=== PATIENT | female | born 1940 | race Caucasian/White ===

== ENCOUNTER → 2016-06-29 | Outpatient (CLI) | payer MEDICARE | LOC: LAB.O 13:44 | PROVIDERS: ATTEND Family Medicine | DX: D64.9 Anemia, unspecified (principal); I48.91 Unspecified atrial fibrillation; I73.9 Peripheral vascular disease, unspecified; I25.10 Atherosclerotic heart disease of native coronary artery without angina pectoris; R73.01 Impaired fasting glucose; J44.9 Chronic obstructive pulmonary disease, unspecified; E87.6 Hypokalemia; E78.5 Hyperlipidemia, unspecified; Z79.01 Long term (current) use of anticoagulants ==

== ENCOUNTER 2016-09-03 12:19 | Emergency (ER) | payer MEDICARE ==
[2016-09-03] MEDS ORDERED: PHYTONADIONE INJ 10 MG/ML AMP IM ONE (12:57)
[2016-09-03] MEDS ORDERED: OCTREOTIDE ACETATE 100 MCG/ML VIAL IVPB ONE (12:58)
[2016-09-03] MEDS ORDERED: OCTREOTIDE ACETATE 500 MCG in SODIUM CHLORIDE 0.9% 100ML 100 ML IVPB SCH (13:00)
--- NOTE | 2016-09-03 13:03 | RAD ---
EXAM DESCRIPTION: Chest,1 View CLINICAL HISTORY: AMS COMPARISON: 07 September 2014 TECHNIQUE: AP portable chest FINDINGS: The lungs are clear. There is no infiltrate or effusion. The heart is normal size. IMPRESSION: Normal portable chest Electronically signed by: Catracho Saravia MD 09/03/2016 1:02 PM CDT
[2016-09-03] MEDS ORDERED: SODIUM CHLORIDE 0.9% 100ML 100 ML IVPB ONE (13:04)
[2016-09-03] MEDS ORDERED: OCTREOTIDE ACETATE 100 MCG/ML VIAL ONE (13:04)
[2016-09-03] MEDS ORDERED: MORPHINE SULFATE INJ 10 MG/ML VIAL IV ONE (13:14)
[2016-09-03] MEDS ORDERED: OCTREOTIDE ACETATE 100 MCG/ML VIAL INJ ONE ×2 (13:15→13:55)
--- NOTE | 2016-09-03 13:17 | ED.PDOC ---
History of Present Illness - General Chief Complaint: General Time Seen by Provider: 09/03/16 12:23 Source: patient, family Exam Limitations: no limitations - History of Present Illness Initial Comments: Patient presents with weakness, N/V, and black stools for three days. She was bitten by her dog 4 days ago and went to clinic. Her INR at that time was > 10 so she was told to stop taking her coumadin that she normally takes for atrial fibrillation. Since then, she has had black stools and increasing weakness. She has developed N/V for two days with generalized pain. No previous episodes nor known GI bleeding sites/PUD. No other complaints. Timing/Duration: other - 3-4 days Severity: severe Improving Factors: nothing Worsening Factors: nothing Associated Symptoms: malaise, weakness Allergies/Adverse Reactions: Allergies Benzodiazepines Allergy (Verified 11/11/14 01:01) Erythromycin Allergy (Verified 11/11/14 01:01) Pentazocine [From Talwin Compound] Allergy (Verified 11/11/14 01:01) Rifampin Allergy (Verified 11/11/14 01:01) Home Medications: Ambulatory Orders Atenolol [Tenormin] 25 mg PO BID #0 11/23/12 Citalopram Hydrobromide 20 mg PO DAILY #0 11/23/12 Multiple Minerals W/ Vitamins [Calcium Citrate +] 1 tab PO DAILY #0 11/23/12 Magnesium 400 mg PO DAILY 09/08/14 Omeprazole 20 mg PO ACBK 09/08/14 Potassium Chloride Tab [K-Dur] 20 meq PO BIDFD 09/08/14 Propafenone HCl [Rythmol] 225 mg PO TID 09/08/14 Diphenoxylate/Atropine [Lomotil Tab] 2.5 mg PO Q6-8H PRN #12 tab 10/31/14 Sulfa/Trimeth 800/160 (Ds) Tab [Bactrim DS Tab] 1 ea PO BID #14 tab 11/11/14 Review of Systems - Review of Systems Constitutional: States: see HPI EENTM: States: no symptoms reported Respiratory: States: no symptoms reported Cardiology: States: no symptoms reported Gastrointestinal/Abdominal: States: see HPI Genitourinary: States: no symptoms reported Musculoskeletal: States: no symptoms reported Skin: States: no symptoms reported Neurological: States: no symptoms reported Endocrine: States: no symptoms reported Hematologic/Lymphatic: States: no symptoms reported Past Medical History (General) - Patient Medical History Hx Seizures: No Hx Stroke: No Hx Asthma: No Hx of COPD: Yes Hx Cardiac Disorders: Yes Hx Congestive Heart Failure: No Hx Pacemaker: No Hx Hypertension: No Hx Diabetes: No Hx Gastroesophageal Reflux: Yes Hx Cancer: Yes Hx MRSA: No - Vaccination History Hx Tetanus, Diphtheria Vaccination: Yes Hx Influenza Vaccination: No Hx Pneumococcal Vaccination: No - Social History Hx Tobacco Use: Yes Hx Alcohol Use: Yes Hx Substance Use: No Hx Substance Use Treatment: No Hx Depression: No Hx Physical Abuse: No Hx Emotional Abuse: No Hx Suspected Abuse: No - Female History Patient : No Family Medical History - Family History Father Family History: No Known Living Status: Hx Cardiac Disease: Yes Mother Family History: No Known Living Status: Physical Exam - Physical Exam General Appearance: Alert Ears, Nose, Throat: normal ENT inspection Neck: non-tender, full range of motion, supple Respiratory: lungs clear Cardiovascular/Chest: regular rate, rhythm Peripheral Pulses: radial,right: 1+, radial,left: 1+, dorsalis pedis,right: 1+, dorsalis pedis,left: 1+ Gastrointestinal/Abdominal: normal bowel sounds, non tender, soft Back Exam: no CVA tenderness Extremity: other - Pale nail beds and palmar creases Neurologic: no motor/sensory deficits Skin Exam: pallor Lymphatic: no adenopathy Progress - Progress Progress: 09/03/16 13:18 Hb 5.7 Vitamin K 10 mg IM x one given. Octreotide 50 mcg IV x one then run at 50 mcg/ hour. 2 units of PRBCs typed and crossed. Morphine 4 mg IV x one. First unit of blood started before transfer. 09/03/16 16:03 Patient flown by helicopter to [facility]. Departure - Departure Clinical Impression: Acute gastrointestinal hemorrhage, Anemia, Coagulation disorder Disposition: Transfer to Hospital Condition: Fair Departure Forms: ED Discharge - Pt. Copy, Patient Portal Self Enrollment Diet: other - NPO Home Medications: Ambulatory Orders Atenolol [Tenormin] 25 mg PO BID #0 11/23/12 Citalopram Hydrobromide 20 mg PO DAILY #0 11/23/12 Multiple Minerals W/ Vitamins [Calcium Citrate +] 1 tab PO DAILY #0 11/23/12 Magnesium 400 mg PO DAILY 09/08/14 Omeprazole 20 mg PO ACBK 09/08/14 Potassium Chloride Tab [K-Dur] 20 meq PO BIDFD 09/08/14 Propafenone HCl [Rythmol] 225 mg PO TID 09/08/14 Diphenoxylate/Atropine [Lomotil Tab] 2.5 mg PO Q6-8H PRN #12 tab 10/31/14 Sulfa/Trimeth 800/160 (Ds) Tab [Bactrim DS Tab] 1 ea PO BID #14 tab 11/11/14
[2016-09-03] MEDS ORDERED: SODIUM CHLORIDE 0.9% 10 ML VIAL ONE (13:18)
[2016-09-03] MEDS ORDERED: SODIUM CHLORIDE 0.9% 1000ML 1,000 ML IVS ONE (13:30)
[2016-09-03] MEDS ORDERED: SODIUM CHLORIDE 0.9% 250ML 250 ML ONE (14:17)
[2016-09-03 15:05] VITALS: TEMP 99.3; O2SAT 96
[2016-09-03 19:22] VITALS: BP 118/46
== END 2016-09-03 16:05 | disposition short-term general hospital (02) ==
LOC: ER 12:19
DX: K92.2 Gastrointestinal hemorrhage, unspecified (principal); D64.9 Anemia, unspecified; D68.9 Coagulation defect, unspecified; J44.9 Chronic obstructive pulmonary disease, unspecified; K21.9 Gastro-esophageal reflux disease without esophagitis; Z85.9 Personal history of malignant neoplasm, unspecified; Z88.3 Allergy status to other anti-infective agents; Z88.8 Allergy status to other drugs, medicaments and biological substances; Z79.899 Other long term (current) drug therapy; Z87.891 Personal history of nicotine dependence
CPT/HCPCS: 36415; 71010; 80053; 82550; 82553; 82948; 83690; 83735; 83880; 84100; 84436; 84443; 84484; 85025; 85610; 85730; 86922; 93005; J2270; J2354; J3430; J7030; J7050; P9016

== ENCOUNTER 2016-09-13 18:30 | Inpatient (IN) | payer MEDICARE ==
--- NOTE | 2016-09-13 19:53 | HP ---
HISTORY OF PRESENT ILLNESS: This 75 year-old female is admitted to Swing Bed rehabilitation status being transferred from [facility] after an extended and complicated course of therapy requiring significant intervention. Apparently she became extremely weak and disoriented and pale in coloration at home prior to her coming to the Emergency Room on Tuesday the 03 of September. In our Emergency Room, she was found to be having a significant gastrointestinal bleed, probable upper gastrointestinal in location with black bowel movements and shocky state requiring significant support. She had been vomiting earlier. Her memory of the occurrences of her coming to the Emergency Room and being transferred are very foggy. 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 At [facility], she was treated with gastrointestinal consultation as well as nephrology and hematology. She had an upper endoscopy which showed gastritis and duodenitis but no specific source of bleeding was identified. No colonoscopy was noted. She was treated with proton pump inhibitors and required multiple dosings of red cell infusions as well as fresh frozen plasma as her condition deteriorated after her admission to the hospital. She had been on Coumadin because of chronic atrial fibrillation. This was stopped. She was given some Vitamin K in our Emergency Room before her transfer for higher level of care. Her condition slowly stabilized to the point that she was able to be discharged. She received some rehabilitation with physical therapy in the hospital but was so weak she was unable to fully return to her ability to care for herself, therefore she was transferred to [facility] for Swing Bed rehabilitation for strengthening to achieve her abilities to care for herself before being able to safely return home. On the morning of her discharge, her hemoglobin was up to 10.1 where it had been 8.1 just a day or so earlier. During her hospitalization, she received multiple doses parenterally of iron preparations as well as marrow stimulant medications such as Erythropoietin. She was seen by Dr. Perry, brush trimming machine setter, who assisted with some renal insufficiency issues as well. She is admitted to our hospital for initiation of ongoing therapy, rehabilitation and strengthening. PAST MEDICAL HISTORY: 1. History of atrial fibrillation on Coumadin therapy. 2. Gastroesophageal reflux disease. 3. Hypertension. 4. Chronic obstructive pulmonary disease in a chronic smoker, now stopped for a year. 5. History of cervical cancer. 6. 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 7. Atherosclerosis with claudication type pain. PAST SURGICAL HISTORY: 1. Abdominal hysterectomy. 2. Hernia repair. 3. Appendectomy. 4. Cervical cone biopsy. CURRENT MEDICATIONS: Please refer to list verified by nurses. ALLERGIES: BENZODIAZEPINES, ERYTHROMYCIN, PENTAZOCINE, RIFAMPIN, LIPITOR, CRESTOR AND TALWIN. FAMILY HISTORY: Positive for coronary artery disease, hypertension and cancer. 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 She smoked for many years but now has stopped for the last 15 months. REVIEW OF SYSTEMS: No significant weight change recently. No hearing or vision disturbances. She did have altered level of consciousness at the onset of her significant gastrointestinal bleed. LUNGS: Significant shortness of breath even upon exertion after and during her recovery period. CARDIOVASCULAR : History of atrial fibrillation. ABDOMEN: Nausea and vomiting, and black bowel movements in recent past requiring multiple blood transfusions because of significant upper gastrointestinal hemorrhage. NEUROLOGIC: Generalized weakness and associated shortness of breath limits her ability to function. PHYSICAL EXAMINATION: VITAL SIGNS: Please refer to vitals. GENERAL: The patient is awake, alert and oriented. Coloration is somewhat pale but apparently a lot better than it has been recently. HEENT: Unremarkable. NECK: Supple. No carotid bruits. No lymphadenopathy. CHEST: Lungs have diminished breath sounds with a few rhonchi more on the right than the left with the patient lying at the present time on her left side. CARDIOVASCULAR: Heart tones are slightly irregular. No significant gallops. ABDOMEN: Fairly good and hyperactive bowel tones are present. Tenderness in the epigastrium. No organomegaly evident upon palpation. No rebound tenderness. EXTREMITIES: Fairly well formed with no significant pedal edema, decreased muscle tone present. NEUROLOGIC: Generally weak but no focal neurological deficits noted. The patient is otherwise awake, alert and oriented, and communicative. LABORATORY: Recent hemoglobin of 10.1 is noted. Repeat evaluation in the morning to further delineate a baseline for close followup to continue. ASSESSMENT: 1. Significant acute upper gastrointestinal hemorrhage with melena and significant anemia state requiring multiple units of packed red blood cells as well as fresh frozen plasma. 2. Chronic atrial fibrillation having been on Coumadin with hyper therapeutic INR initially now adjusted down at [facility] with adjustments to continue. 3. Acute renal injury noted showing some improvement. 4. Chronic obstructive pulmonary disease in a chronic smoker now stopped for the last 15 months. 5. History of coronary artery disease. 6. History of atherosclerotic cardiovascular disease with significant claudication having received at least 5 stents in the femoral regions in years past. 7. Acute anemia, probable blood loss with recheck in the morning. 8. History of hypertension. 9. History of gastroesophageal reflux disease with a hiatal hernia. PLAN: Continue supportive care. Physical Therapy to evaluate in the morning and to initiate strengthening and ambulation training until safe to return home. Continue with ProTime and vitals followup. Will continue with some of the home medicines started and will be continued from [facility]. Observe renal function. Continue with bronchodilators and pulmonary hygiene, and close followup suggested. She will require several days in order to get to the point where she will be safe to return home. #[id number] [facility]
[2016-09-13] MEDS ORDERED: MAGNESIUM HYDROXIDE 30 ML UD PO PRN (20:04)
[2016-09-13] MEDS ORDERED: SODIUM PHOS/BIPHOS ENEMA ADULT 133 ML BTTL PR PRN (20:04)
[2016-09-13] MEDS ORDERED: ACETAMINOPHEN 500 MG TAB PO PRN (20:04)
[2016-09-13] MEDS: IPRATROPIUM/ALBUTEROL 3 ML VIAL INH SCH (20:38)
[2016-09-13] MEDS ORDERED: PROPAFENONE HCL 225 MG PO SCH (22:30)
[2016-09-13] MEDS ORDERED: diphenhydrAMINE HCL 25 MG CAP ONE (22:39)
[2016-09-13] MEDS ORDERED: GABAPENTIN 300 MG CAP ONE (22:40)
[2016-09-13] MEDS: diphenhydrAMINE HCL 25 MG CAP PO SCH (22:41)
[2016-09-13] MEDS: GABAPENTIN 300 MG CAP PO SCH (22:41)
[2016-09-13] MEDS: ATENOLOL 25 MG TAB PO SCH (22:42)
[2016-09-14] MEDS: LEVALBUTEROL NEBS 1.25 MG/3 ML VIAL INH PRN ×2 (00:35→18:08)
[2016-09-14] MEDS ORDERED: PANTOPRAZOLE SODIUM TAB 40 MG PO SCH (07:00)
[2016-09-14] MEDS ORDERED: PROPAFENONE 150 MG TAB ONE (07:40)
[2016-09-14] MEDS: IPRATROPIUM/ALBUTEROL 3 ML VIAL INH SCH ×4 (09:05→20:56)
[2016-09-14] MEDS: DOCUSATE SODIUM 100 MG CAP PO SCH (09:30)
[2016-09-14] MEDS: ATENOLOL 25 MG TAB PO SCH ×2 (09:30→20:40)
[2016-09-14] MEDS: PROPAFENONE 150 MG TAB PO SCH ×3 (09:30→20:40)
[2016-09-14] MEDS: CITALOPRAM HBR 20 MG TAB PO SCH (09:30)
[2016-09-14] MEDS: POTASSIUM CHLORIDE 10 MEQ TAB PO SCH ×2 (11:57→17:40)
[2016-09-14] MEDS: WARFARIN SODIUM 3 MG TAB PO SCH (11:58)
--- NOTE | 2016-09-14 13:12 | PN ---
DATE: 09/14/1709 SUBJECTIVE: The patient is ambulating in the room. She is still very weak, but less short of breath. Still coloration is somewhat pale. Appetite is fair. No new onset of GI bleeding evident. OBJECTIVE: VITAL SIGNS: Blood pressure 122/69. Afebrile. Pulse 69. Saturation 96% on nasal cannula. Continue to observe with ambulation studies to check on requirements of oxygen. LUNGS: Diminished breath sounds with a few rhonchi, more on the right base than the left. HEART: Tones are somewhat distant. ABDOMEN: Soft with some mild epigastric tenderness. LABORATORY: White count 7,500, hemoglobin 9 and was 10.1 yesterday. INR on 3 mg of Coumadin daily is 2.37. Of note, she was on 3 mg a day of Coumadin when her bleeding started and she had an INR of greater than 4. Chemistries show potassium seriously low at 2.7. BUN 17, glucose 117, calcium 8.4, albumin 2.9 with protein supplementation initiated via the diet. ASSESSMENT: 1. Significant acute upper gastrointestinal hemorrhage with recent melena and severe anemic state requiring multiple units of packed red blood cells as well as fresh frozen plasma. 2. Chronic atrial fibrillation having been on Coumadin with a hyper- therapeutic INR initially, now adjusted down to therapeutic levels and Coumadin to be continued even though the patient now is in normal sinus rhythm, but has several stents in her femoral arteries and is symptomatic with claudication. 3. Acute renal injury noted, showing some improvement. 4. Chronic obstructive pulmonary disease in a chronic smoker, now stopped for 15 months. 5. History of coronary artery disease. 6. History of atherosclerotic cardiovascular disease with claudication with at least five stents in the femoral regions in recent years. 7. Acute anemia secondary to blood loss with a normocytic/normochromic presentation. 8. History of hypertension. 9. History of gastroesophageal reflux disease with hiatal hernia. 10. Significant hypokalemia requiring supplementation and close followup. PLAN: Condition was discussed with Dr. Acuna, stewardess supervisor at [facility] who saw the patient at [facility] and he feels that even though she has normal sinus rhythm and because of the significant stents she has in both femoral arteries and the fact that she goes in and out of atrial fibrillation that she needs to be continued on the Coumadin therapy. The patient currently has cardiology followup with stewardess supervisor in [facility] and further consultation will be if indicated in the future. The patient is started on KCL p.o. 30 mEq t.i.d. with meals for the next 7 doses and reevaluate the potassium. The patient does not wish to have a potassium rider IV because of her arms and her veins. We will continue to observe the INR closely and must prevent elevation above normal. May eventually require Coumadin 2.5 mg daily instead of 3 mg in an effort to provide protection and yet avoid re-bleeding. Close followup is necessary as she continues with her rehab with physical therapy supervision. #[id number] [facility]
[2016-09-14] MEDS ORDERED: LOPERAMIDE CAP 2 MG CAP ONE (18:17)
[2016-09-14] MEDS ORDERED: DIPHENOXYLATE HCL/ATROPINE 2.5 MG TAB PO PRN (18:20)
[2016-09-14] MEDS: BIFIDOBACTERIUM INFANTIS 4 MG CAP PO SCH ×2 (18:48→20:40)
[2016-09-14] MEDS: HYDROcodone 5MG/APAP 325MG 1 EA TAB PO PRN (20:09)
[2016-09-14] MEDS: ESZOPICLONE 1 MG TAB PO PRN (20:40)
[2016-09-14] MEDS: GABAPENTIN 300 MG CAP PO SCH (20:41)
[2016-09-14] MEDS: diphenhydrAMINE HCL 25 MG CAP PO SCH (20:41)
[2016-09-15] MEDS ORDERED: PANTOPRAZOLE SODIUM TAB 40 MG PO ONE (04:50)
[2016-09-15] MEDS: PANTOPRAZOLE SODIUM TAB 40 MG PO SCH (06:13)
[2016-09-15] MEDS: POTASSIUM CHLORIDE 10 MEQ TAB PO SCH ×3 (07:51→17:16)
[2016-09-15] MEDS: IPRATROPIUM/ALBUTEROL 3 ML VIAL INH SCH ×4 (08:15→19:51)
[2016-09-15] MEDS: ATENOLOL 25 MG TAB PO SCH ×2 (09:22→20:35)
[2016-09-15] MEDS: DOCUSATE SODIUM 100 MG CAP PO SCH (09:22)
[2016-09-15] MEDS: BIFIDOBACTERIUM INFANTIS 4 MG CAP PO SCH ×2 (09:22→20:34)
[2016-09-15] MEDS: PROPAFENONE 150 MG TAB PO SCH ×3 (09:22→20:34)
[2016-09-15] MEDS: CITALOPRAM HBR 20 MG TAB PO SCH (09:22)
[2016-09-15] MEDS: WARFARIN SODIUM 3 MG TAB PO SCH (12:31)
[2016-09-15] MEDS: HYDROcodone 5MG/APAP 325MG 1 EA TAB PO PRN ×2 (13:53→19:23)
[2016-09-15] MEDS: CEFUROXIME AXETIL TAB 250 MG TAB PO SCH ×2 (15:18→20:34)
--- NOTE | 2016-09-15 16:03 | PN ---
DATE: 09/15/16 SUPERVISING PHYSICIAN: Rafy Guajardo M.D. SUBJECTIVE: The patient has just been down to rehab participating in her physical therapy. She is doing well. She said she is still weak but progressing. She has had no further complaints of any notable bleeding, although she has had a few episodes of diarrhea. OBJECTIVE: VITAL SIGNS: Temperature 98.6, pulse 76, blood pressure 139/68, respirations 18, O2 sat showing 91% on room air. I's and O's show a negative balance of 60 with 340 in, 400 out. Weight 66.3 kg. CHEST: Clear to auscultation bilaterally. HEART: Regular rate and rhythm. ABDOMEN: Soft, non- tender. Positive bowel sounds. EXTREMITIES: No clubbing, cyanosis or edema. NEUROLOGIC: She is alert and oriented times three. LABORATORY: Repeat laboratory studies show potassium 3.5 compared to admission of 2.7. Otherwise all other chemistries are within normal limits. H&H today is 9.5 and 29.8 which is improved from admission of 9.8 and 28.0. Differential shows to be within normal limits. Platelet count 323,000. RADIOLOGY: There are no radiographic studies. MICROBIOLOGY: Urine culture was submitted and preliminary shows gram-negative rods. ASSESSMENT: 1. History of significant acute upper gastrointestinal hemorrhage with recent melena and severe anemic state that required multiple units of packed red blood cells as well as some fresh frozen plasma prior to discharge from Acute Care. 2. Chronic atrial fibrillation having been on Coumadin with a hyper- therapeutic INR initially, with therapeutic levels now obtained on admission with the patient being in normal sinus rhythm, but due to several stents in her femoral arteries and is symptomatic with claudication, recommendations to continue with Coumadin. 3. Acute renal injury noted, showing some improvement. 4. Chronic obstructive pulmonary disease in a chronic smoker, now stopped for 15 months. 5. History of coronary artery disease. 6. History of atherosclerotic cardiovascular disease with claudication with at least five stents in the femoral regions in past years. 7. Acute anemia secondary to blood loss with a normocytic/normochromic presentation showing to be stable and improving. 8. History of hypertension. 9. History of gastroesophageal reflux disease with hiatal hernia. 10. Significant hypokalemia on admission with ongoing supplementation showing improvement. PLAN: Will continue to monitor the patient closely as she participates with her physical therapy during Swing Bed admission. Will plan to monitor her INR at least every third day and continue to check H&Hs with lab draws. She did show gram-negative rods on the urine. Will start her on some Ceftin p.o. and await final culture results to target antibiotic therapy accordingly. She remains on potassium chloride for ongoing treatment with 20 mEq b.i.d. having received 30 mEq in the last 24 hours 3 times a day. At this point, she will stay on 3 mg of Coumadin until her next INR draw and should she show continued elevation, will reassess and adjust her daily dosage. She will need close followup until discharge. Until then, will continue to monitor the patient closely. #[id number] [facility] [place]
[2016-09-15] MEDS: diphenhydrAMINE HCL 25 MG CAP PO SCH (20:34)
[2016-09-15] MEDS: GABAPENTIN 300 MG CAP PO SCH (20:34)
[2016-09-15] MEDS: ESZOPICLONE 1 MG TAB PO PRN (20:34)
[2016-09-16] MEDS: PANTOPRAZOLE SODIUM TAB 40 MG PO SCH (06:13)
[2016-09-16] MEDS: POTASSIUM CHLORIDE 10 MEQ TAB PO SCH ×2 (08:09→16:46)
[2016-09-16] MEDS: PROPAFENONE 150 MG TAB PO SCH ×3 (08:54→21:20)
[2016-09-16] MEDS: ATENOLOL 25 MG TAB PO SCH ×2 (08:56→21:20)
[2016-09-16] MEDS: DOCUSATE SODIUM 100 MG CAP PO SCH (08:56)
[2016-09-16] MEDS: CITALOPRAM HBR 20 MG TAB PO SCH (08:56)
[2016-09-16] MEDS: BIFIDOBACTERIUM INFANTIS 4 MG CAP PO SCH ×2 (08:57→21:19)
[2016-09-16] MEDS: IPRATROPIUM/ALBUTEROL 3 ML VIAL INH SCH ×4 (09:04→20:35)
--- NOTE | 2016-09-16 09:17 | PCM.CORE ---
Physician DVT/VTE - Prophylaxis Currently: Patient already on anticoagulation therapy - warfrin - Nurse DVT Assessment & Total Each Risk Factor Represents 3 Points: Age over 75 years DVT Assessment Score: 3 - 5 or more Very High Risk Treatments: Early Ambulation *, Sequential Compression Device Pharmacological: Warfarin daily
[2016-09-16] MEDS: CEPHALEXIN MONOHYDRATE 500 MG CAP PO SCH ×2 (09:53→21:20)
[2016-09-16] MEDS: WARFARIN SODIUM 3 MG TAB PO SCH (12:22)
[2016-09-16] MEDS ORDERED: NITROFURANTOIN MONOHYDRATE MAC 100 MG CAP PO SCH (17:00)
[2016-09-16] MEDS: HYDROcodone 5MG/APAP 325MG 1 EA TAB PO PRN (19:39)
[2016-09-16] MEDS: diphenhydrAMINE HCL 25 MG CAP PO SCH (21:19)
[2016-09-16] MEDS: GABAPENTIN 300 MG CAP PO SCH (21:19)
[2016-09-16] MEDS: ESZOPICLONE 1 MG TAB PO PRN (21:20)
[2016-09-17] MEDS: PANTOPRAZOLE SODIUM TAB 40 MG PO SCH (06:25)
[2016-09-17 06:46] VITALS: BP 150/67; TEMP 96.5
[2016-09-17] MEDS: POTASSIUM CHLORIDE 10 MEQ TAB PO SCH (07:54)
[2016-09-17] MEDS: IPRATROPIUM/ALBUTEROL 3 ML VIAL INH SCH ×3 (08:47→15:51)
[2016-09-17] MEDS: CEPHALEXIN MONOHYDRATE 500 MG CAP PO SCH (08:52)
[2016-09-17] MEDS: CITALOPRAM HBR 20 MG TAB PO SCH (08:52)
[2016-09-17] MEDS: ATENOLOL 25 MG TAB PO SCH (08:52)
[2016-09-17] MEDS: DOCUSATE SODIUM 100 MG CAP PO SCH (08:53)
[2016-09-17] MEDS: BIFIDOBACTERIUM INFANTIS 4 MG CAP PO SCH (08:53)
[2016-09-17] MEDS: PROPAFENONE 150 MG TAB PO SCH ×2 (08:53→15:35)
[2016-09-17] MEDS: WARFARIN SODIUM 3 MG TAB PO SCH (12:56)
[2016-09-17 13:56] VITALS: O2SAT 94
--- NOTE | 2016-09-20 14:30 | DS ---
SUPERVISING PHYSICIAN: Kelli García MD DISCHARGE DIAGNOSIS: 1. History of significant upper gastrointestinal hemorrhage with recent melena and severe anemia state that required multiple units of packed red blood cells as well as fresh frozen plasma prior to discharge from Acute Care. 2. Chronic atrial fibrillation having been on Coumadin with hyper therapeutic INR initially, with therapeutic levels obtained on admission to Swing Bed with the patient being in normal sinus rhythm, but due to her several in the femoral arteries and symptomatic with claudication, recommendation for her to continue her Coumadin per her beach lifeguard. 3. Acute renal injury noted, showing improvement. 4. Chronic obstructive pulmonary disease in a chronic smoker, now stopped for the last 15 months. 5. History of coronary artery disease. 6. History of atherosclerotic cardiovascular disease with claudication with at least five stents in the femoral region in the past years and on chronic Coumadin therapy. 7. Acute anemia, secondary to blood loss with normocytic/normochromic presentation, stable at time of discharge. 8. History of hypertension. 9. History of gastroesophageal reflux disease with a hiatal hernia. 10. Significant hypokalemia on admission with ongoing supplementation, showing improvement. HISTORY OF PRESENT ILLNESS: Ms. Ansari is a 75-year-old, female patient that was admitted to Swing Bed rehabilitation status being transferred from [facility] after an extended and complicated course of therapy requiring significant intervention. Apparently she became extremely weak and disoriented and pale in coloration at home prior to her coming to the Emergency Room on Tuesday the 03 of September. In [facility], she was found to be having a significant gastrointestinal bleed , probable upper gastrointestinal in location with black bowel movements and shocky state requiring significant support. She had been vomiting earlier. Her memory of the occurrences of her coming to the Emergency Room and being transferred were very foggy. 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 At [facility], she was treated with gastrointestinal consultation as well as nephrology and hematology. She had an upper endoscopy which showed gastritis and duodenitis, but no specific source of bleeding was identified. No colonoscopy was noted. She was treated with proton pump inhibitors and required multiple dosings of red cell infusions as well as fresh frozen plasma as her condition deteriorated after her admission to the hospital. She had been on Coumadin because of chronic atrial fibrillation. That was stopped. She was given some Vitamin K in our Emergency Room before her transfer for higher level of care. Her condition slowly stabilized to the point that she was able to be discharged. She received some rehabilitation with physical therapy in the hospital, but was so weak she was unable to fully return to her ability to care for herself, therefore she was transferred to [facility] for Swing Bed rehabilitation for strengthening to achieve her abilities to care for herself before being able to safely return home. On the morning of her discharge, her hemoglobin was up to 10.1 where it had been 8.1 just a day or so earlier. During her hospitalization, she received multiple doses parenterally of iron preparations as well as marrow stimulant medications such as Erythropoietin. She was seen by Dr. Perry, citrus fruit packer, who assisted with some renal insufficiency issues as well. She was admitted to our hospital for initiation of ongoing therapy, rehabilitation and strengthening. LABORATORY: On admission to [facility] bed, initial hemoglobin was 9.0. At time of discharge, it was 10.6 with hematocrit 33.6. White count remained within normal limits and at time of discharge was 6.6, platelet count 363,000. Differential was without a left shift. Coagulation studies showed therapeutic INR of 2.37 initially on admission. This was followed up on 09/16/16 with additional studies showing her INR had elevated somewhat to 2.96. Chemistries showed electrolytes on admission with sodium 143, potassium 2.7, BUN 17, creatinine 1.14. After therapy treatment, discharge on 09/17/16 with potassium having corrected itself to 4.3. BUN 18, creatinine 1.23. Urine on admission showed just a trace of intact blood with large leukocyte esterase. Microscopic showed 3 to 5 WBCs with 1 to 3 RBCs, but rare bacteria. She did have a urine culture completed and did show an Escherichia coli which showed to be severely resistant, but with significant first and third generation cephalosporins as well as meropenem and nitrofurantoin and Bactrim. RADIOLOGY: No radiographic studies while in Swing Bed. HOSPITAL COURSE: Ms. Ansari was admitted to Swing Bed as noted in history of present illness. She did well with physical therapy under the direction of physical therapy department with monitoring her INR and her CBC closely. She showed improvement in her hemoglobin and hematocrit and stabilized as well as she was therapeutic on her INR. She was started on antibiotics while on Swing Bed that included initially Macrobid and then this was transitioned to Ceftin until culture was completed and showed it was resistant to second generation cephalosporins. Given her age and her creatinine function, Macrobid was not started as contraindication and she was started on Keflex through the remainder of her hospitalization. She did well with physical therapy and was felt strong enough to be discharged home to continue with outpatient treatment plan. Ms. Ansari was discharged on 09/17/16 to have close clinical followup with Dr. Diaz and to have continued home health with [facility]. She was to resume her home medications as noted and taken new prescriptions as directed. She was encouraged to drink plenty of fluids to prevent dehydration and return to the hospital should she have any worsening of her condition. At time of discharge, new medications included: 1. Keflex 500 mg q.12h., #20, based on sensitivity report with Escherichia coli showing sensitivity to first generation cephalosporins, but resistant to second general cephalosporins as well as the patient had contraindication for Macrobid. No new medications were added. She was discharged in stable condition. #[id number] [facility]
== END 2016-09-17 16:20 | disposition home health service (06) | DRG 683 ==
LOC: MS 18:30 → UNDOADMIN 18:30 → MS 19:51 → UNDOADMIN 19:51 → UNDODISIN 09-17 16:20
PROVIDERS: ADMIT Emergency Medicine; ATTEND Nurse Practitioner Family
DX: N17.9 Acute kidney failure, unspecified (principal); D62 Acute posthemorrhagic anemia; R53.1 Weakness; I48.2 Chronic atrial fibrillation; E87.6 Hypokalemia; K21.9 Gastro-esophageal reflux disease without esophagitis; I10 Essential (primary) hypertension; J44.9 Chronic obstructive pulmonary disease, unspecified; I70.219 Atherosclerosis of native arteries of extremities with intermittent claudication, unspecified extremity; K44.9 Diaphragmatic hernia without obstruction or gangrene; Z88.8 Allergy status to other drugs, medicaments and biological substances; Z85.41 Personal history of malignant neoplasm of cervix uteri; Z88.1 Allergy status to other antibiotic agents; Z95.820 Peripheral vascular angioplasty status with implants and grafts; Z87.891 Personal history of nicotine dependence; Z79.01 Long term (current) use of anticoagulants; Z79.899 Other long term (current) drug therapy; Z16.19 Resistance to other specified beta lactam antibiotics

== ENCOUNTER 2016-10-02 12:54 | Emergency (ER) | payer MEDICARE ==
[2016-10-02] MEDS ORDERED: MAGNESIUM SULFATE PREMIX 2GM 2 GM in PREMIX BAG 1 BAG IVPB ONE (14:12)
[2016-10-02] MEDS ORDERED: PHYTONADIONE INJ 10 MG/ML AMP IM ONE (14:12)
--- NOTE | 2016-10-02 14:24 | ED.PDOC ---
History of Present Illness - General Chief Complaint: GI Problem Stated Complaint: abdominal bloating, sob, right shoulder pain. Time Seen by Provider: 10/02/16 14:10 Source: patient, RN notes reviewed, Vital Signs reviewed, family - Son Exam Limitations: no limitations - History of Present Illness Initial Comments: Patient is a 75 y/o female with a history of GI bleed last month. She came in with the same symptoms at that time. She has been nauseous, fatigued. She is worried about another GI bleed and her Hb. It was 5.7 last time she was here before she was transferred. She has also had shortness of breath. Timing/Duration: other - She has not felt well seince her hospitalization, however she has been much worse today. Severity: moderate, severe Improving Factors: nothing Worsening Factors: movement Associated Symptoms: cough, nausea/vomiting, shortness of breath, weakness Allergies/Adverse Reactions: Allergies Benzodiazepines Allergy (Verified 10/02/16 13:21) Erythromycin Allergy (Verified 10/02/16 13:21) Pentazocine [From Talwin Compound] Allergy (Verified 10/02/16 13:21) Rifampin Allergy (Verified 10/02/16 13:21) Home Medications: Ambulatory Orders Atenolol [Tenormin] 25 mg PO BID #0 11/23/12 Citalopram Hydrobromide 20 mg PO DAILY #0 11/23/12 Multiple Minerals W/ Vitamins [Calcium Citrate +] 1 tab PO DAILY #0 11/23/12 Magnesium 400 mg PO DAILY 09/08/14 Omeprazole 20 mg PO ACBK 09/08/14 Potassium Chloride Tab [K-Dur] 10 meq PO DAILY 09/08/14 Propafenone HCl [Rythmol] 225 mg PO TID 09/08/14 Diphenoxylate/Atropine [Lomotil Tab] 2.5 mg PO Q6-8H PRN #12 tab 10/31/14 Budesonide Nebs [Pulmicort Respules] 0.25 mg INH BID 09/13/16 Gabapentin 300 mg PO BEDTIME 09/13/16 Pantoprazole Sodium [Protonix] 40 mg PO ACBK 09/13/16 Warfarin Sodium [Coumadin] 3 mg PO DAILY 09/13/16 diphenhydrAMINE HCL [Benadryl] 50 mg PO BEDTIME 09/13/16 Cephalexin Monohydrate [Keflex] 500 mg PO Q12H #20 cap 09/17/16 Review of Systems - Review of Systems Constitutional: States: malaise, weakness EENTM: States: no symptoms reported Respiratory: States: cough, short of breath Cardiology: States: no symptoms reported Gastrointestinal/Abdominal: States: nausea Genitourinary: States: no symptoms reported Musculoskeletal: States: muscle pain Skin: States: no symptoms reported Neurological: States: weakness Endocrine: States: no symptoms reported Hematologic/Lymphatic: States: no symptoms reported All other Systems: Reviewed and Negative Past Medical History (General) - Patient Medical History Hx Seizures: No Hx Stroke: No Hx Asthma: No Hx of COPD: Yes Hx Cardiac Disorders: Yes Hx Congestive Heart Failure: No Hx Pacemaker: No Hx Hypertension: No Hx Diabetes: No Hx Gastroesophageal Reflux: Yes Hx Cancer: Yes Hx MRSA: No Surgical History: Hysterectomy - Vaccination History Hx Tetanus, Diphtheria Vaccination: Yes Hx Influenza Vaccination: No Hx Pneumococcal Vaccination: No - Social History Hx Tobacco Use: No Hx Alcohol Use: Yes Hx Substance Use: No Hx Substance Use Treatment: No Hx Depression: No Hx Physical Abuse: No Hx Emotional Abuse: No Hx Suspected Abuse: No - Activities of Daily Living Hospice Agency (if applicable):: None - Female History Patient is a Female of Child Bearing Age (10 -59 yrs old): No Patient : No Family Medical History - Family History Father Family History: No Known Living Status: Hx Cardiac Disease: Yes Mother Family History: No Known Living Status: Physical Exam - Physical Exam General Appearance: Alert, Comfortable, No apparent distress Ears, Nose, Throat: hearing grossly normal, normal ENT inspection Neck: supple Respiratory: lungs clear, normal breath sounds, no respiratory distress, no accessory muscle use Cardiovascular/Chest: no edema, no murmur, tachycardia, irregularly irregular Gastrointestinal/Abdominal: normal bowel sounds, non tender, soft, no organomegaly Back Exam: normal inspection, no CVA tenderness Extremity: normal range of motion, non-tender, normal inspection, no pedal edema Neurologic: alert, normal mood/affect, oriented x 3 Skin Exam: normal color, warm/dry Progress - Results/Orders Results/Orders: 10/02/16 10/02/16 10/02/16 13:03 13:10 15:00 Temperature 99.8 F H Pulse Rate Pulse Rate [ 106 H pulse ox] Respiratory 20 20 24 Rate Blood Pressure 142/84 [Left Arm] O2 Sat by Pulse 89 L Oximetry 10/02/16 15:12 Temperature Pulse Rate 102 H Pulse Rate [ pulse ox] Respiratory 22 Rate Blood Pressure [Left Arm] O2 Sat by Pulse 93 L Oximetry 10/02/16 13:30 EKG STAT 10/02/16 14:45 Chest,1 View [RAD] Stat 10/02/16 15:48 HYDROcodone 10MG/APAP 325MG [[place] 10/325] 1 ea PO ONCE ONE methylPREDNISolone SODIUM SUC [SOLU-Medrol] 125 mg IV ONCE ONE Laboratory Results WBC 5.7 K/mm3 (4.8-10.8) 10/02/16 13:33 RBC 3.66 M/mm3 (4.20-5.40) L 10/02/16 13:33 Hgb 10.6 gm/dL (12.0-16.0) L 10/02/16 13:33 Hct 33.3 % (36.0-47.0) L 10/02/16 13:33 MCV 90.8 fl (81.0-99.0) 10/02/16 13:33 MCH 28.9 pg (27.0-31.0) 10/02/16 13:33 MCHC 32.0 g/dL (33.0-37.0) L 10/02/16 13:33 RDW 18.9 % (11.5-14.5) H 10/02/16 13:33 Plt Count 204 K/mm3 (130-400) 10/02/16 13:33 MPV 8.7 fl (7.40-10.4) 10/02/16 13:33 Absolute Neuts (auto) 4.20 K/uL (1.8-6.8) 10/02/16 13:33 Absolute Lymphs (auto) 1.10 K/uL (1.0-3.4) 10/02/16 13:33 Absolute Monos (auto) 0.30 K/uL (0.2-0.8) 10/02/16 13:33 Absolute Eos (auto) 0.10 K/uL (0.0-0.4) 10/02/16 13:33 Absolute Basos (auto) 0.10 K/uL (0.0-0.1) 10/02/16 13:33 Neutrophils % 73.1 % (42.0-78.0) 10/02/16 13:33 Lymphocytes % 19.0 % (20.0-50.0) L 10/02/16 13:33 Monocytes % 4.8 % (2.0-9.0) 10/02/16 13:33 Eosinophils % 1.3 % (1.0-5.0) 10/02/16 13:33 Basophils % 1.8 % (0.0-2.0) 10/02/16 13:33 PT 83.7 SECONDS (9.4-12.5) H* 10/02/16 13:33 INR 7.560 H* 10/02/16 13:33 PTT (SP) 67.0 SECONDS (25.1-36.5) H 10/02/16 13:33 D-Dimer, Quantitative < 230 ng/mL (0-230) 10/02/16 13:33 Sodium 140 mmol/L (135-145) 10/02/16 13:33 Potassium 4.1 mmol/L (3.6-5.0) 10/02/16 13:33 Chloride 107 mmol/L (101-111) 10/02/16 13:33 Carbon Dioxide 26 mmol/L (21-31) 10/02/16 13:33 Anion Gap 11.1 (12-18) L 10/02/16 13:33 BUN 24 mg/dL (7-18) H 10/02/16 13:33 Creatinine 1.21 mg/dL (0.6-1.3) 10/02/16 13:33 BUN/Creatinine Ratio 19.8 (10-20) 10/02/16 13:33 Random Glucose 105 mg/dL (70-105) 10/02/16 13:33 Serum Osmolality 283.8 mOsm/L (275-295) 10/02/16 13:33 Calcium 8.7 mg/dL (8.4-10.2) 10/02/16 13:33 Magnesium 1.3 mg/dL (1.8-2.5) L 10/02/16 13:33 Creatine Kinase 47 IU/L (26-140) 10/02/16 13:33 CK-MB (CK-2) 2.7 ng/mL (0.0-4.4) 10/02/16 13:33 CK-MB (CK-2) % Not Reportable 10/02/16 13:33 Troponin I < 0.02 ng/mL (0.01-0.05) 10/02/16 13:33 B-Natriuretic Peptide 477.0 pg/ml (0-100) H* 10/02/16 15:02 Stool Occult Blood Positive 10/02/16 15:23 - EKG/XRAY/CT EKG: Atrial, Fibrillation - 110bpm, no ST T wave changes, Changed from - 2016 - has now converted back to Afib instead of NSR Comments: NML axis, irregular intervals--afib with RVR XRAY: chest Xray Comments: No acute process Departure - Departure Clinical Impression: Elevated INR, Hypomagnesemia, Atrial fibrillation with RVR, Elevated brain natriuretic peptide (BNP) level GI bleeding Qualifiers: GI bleed type/associated pathology: gastritis Gastritis type: unspecified gastritis Qualifier Code: (K29.71) Gastritis, unspecified, with bleeding Time of Disposition: 15:54 Disposition: Transfer to Hospital Home Medications: Ambulatory Orders Atenolol [Tenormin] 25 mg PO BID #0 11/23/12 Citalopram Hydrobromide 20 mg PO DAILY #0 11/23/12 Multiple Minerals W/ Vitamins [Calcium Citrate +] 1 tab PO DAILY #0 11/23/12 Magnesium 400 mg PO DAILY 09/08/14 Omeprazole 20 mg PO ACBK 09/08/14 Potassium Chloride Tab [K-Dur] 10 meq PO DAILY 09/08/14 Propafenone HCl [Rythmol] 225 mg PO TID 09/08/14 Diphenoxylate/Atropine [Lomotil Tab] 2.5 mg PO Q6-8H PRN #12 tab 10/31/14 Budesonide Nebs [Pulmicort Respules] 0.25 mg INH BID 09/13/16 Gabapentin 300 mg PO BEDTIME 09/13/16 Pantoprazole Sodium [Protonix] 40 mg PO ACBK 09/13/16 Warfarin Sodium [Coumadin] 3 mg PO DAILY 09/13/16 diphenhydrAMINE HCL [Benadryl] 50 mg PO BEDTIME 09/13/16 Cephalexin Monohydrate [Keflex] 500 mg PO Q12H #20 cap 09/17/16 Transfer to Outside Facility - Transfer Information Accepting Provider:: Dr. Phillips Accepting Facility: [facility] Reason for Transfer: required specialist not available
[2016-10-02] MEDS ORDERED: MAGNESIUM SULFATE PREMIX 2GM 50 ML IVPB ONE (14:32)
[2016-10-02] MEDS ORDERED: IPRATROPIUM/ALBUTEROL 3 ML VIAL NEB ONE (14:46)
--- NOTE | 2016-10-02 15:35 | RAD ---
PROCEDURE: XR CHEST 1 VIEW HISTORY: shortness of breath COMPARISON: 09/03/1929 17 TECHNIQUE: Single projection of the chest was done. FINDINGS: Chronic prominence of the interstitium is again seen in the bilateral lung patterson suspicious for underlying changes of COPD . There are no discrete airspace infiltrates, pneumothoraces or pleural effusions. The pulmonary vascularity is normal. The cardiomediastinal silhouette is unremarkable for patient's age and sex. IMPRESSION: There is no acute pleural-parenchymal process seen in the imaged lung patterson. Chronic prominence of the interstitium is again seen in the bilateral lung patterson suspicious for underlying changes of COPD . Electronically signed by: Donovan Angel MD 10/02/2016 3:34 PM CDT
[2016-10-02] MEDS ORDERED: methylPREDNISolone SODIUM SUC 125 MG/2 ML VIAL IV ONE (15:48)
[2016-10-02] MEDS ORDERED: HYDROcodone 10MG/APAP 325MG 1 EA TAB PO ONE (15:48)
[2016-10-02] MEDS ORDERED: LEVALBUTEROL NEBS 1.25 MG/3 ML VIAL NEB ONE ×2 (16:09→16:10)
[2016-10-02 16:40] VITALS: BP 123/53; TEMP 99; O2SAT 94
== END 2016-10-02 17:50 | disposition short-term general hospital (02) ==
LOC: ER 12:54
DX: K29.71 Gastritis, unspecified, with bleeding (principal); E83.42 Hypomagnesemia; I48.91 Unspecified atrial fibrillation; R79.89 Other specified abnormal findings of blood chemistry; R79.1 Abnormal coagulation profile; J44.9 Chronic obstructive pulmonary disease, unspecified; K21.9 Gastro-esophageal reflux disease without esophagitis; Z79.899 Other long term (current) drug therapy; Z79.01 Long term (current) use of anticoagulants; Z88.3 Allergy status to other anti-infective agents; Z88.8 Allergy status to other drugs, medicaments and biological substances
CPT/HCPCS: 36415; 71010; 80048; 82270; 82550; 82553; 83880; 84484; 85025; 85379; 85610; 85730; 94640; J2930; J3430; J3475; J7614; J7620

== ENCOUNTER 2017-03-04 09:10 | Inpatient (IN) | payer MEDICARE ==
[2017-03-04] MEDS ORDERED: ONDANSETRON ODT 8 MG TAB ONE (09:44)
[2017-03-04] MEDS ORDERED: ALUMINUM & MAGNESIUM HYDROXIDE 30 ML UD PO ONE (09:57)
[2017-03-04] MEDS ORDERED: ONDANSETRON ODT 8 MG TAB SL ONE (10:00)
[2017-03-04] MEDS ORDERED: POTASSIUM CHLORIDE ELIXIR 20 MEQ/15 ML UD PO ONE (10:31)
[2017-03-04] MEDS ORDERED: SODIUM CHLORIDE 0.9% 1000ML 500 ML IVS ONE (11:07)
[2017-03-04] MEDS ORDERED: POTASSIUM CHLORIDE INJ 40 MEQ 40 MEQ in SODIUM CHLORIDE 0.9% 250ML 250 ML IVPB ONE (11:08)
--- NOTE | 2017-03-04 11:20 | ED.PDOC ---
History of Present Illness - General Chief Complaint: GI Problem Stated Complaint: Tarry Stools x 1 day Time Seen by Provider: 03/04/17 09:15 Source: patient Exam Limitations: no limitations - History of Present Illness Initial Comments: the patient is a 76-year-old female presenting to the emergency room secondary to feelings of fatigue and weakness and some muscle cramping all progressive for the last 2 weeks. She also saw her pipe insulator last week who recommended that she get a repeat CBC to make sure she was not becoming significantly anemic again. She has not gotten that done yet. Additionally she does have a history of GI bleeds most significant of which was last spring where she spent approximately 3 weeks in the hospital. She has had 2 endoscopies since that time not showing the source of the GI bleed. She has had her blood thinners changed from Plavix and Coumadin over to Savaysa. she has apparently not had to have any transfusions since September. She does have a significant history of iron deficiency. She has not had that rechecked recently. She did have a darker colored stool this morning that was not necessarily melanotic. She does have some mild epigastric discomfort as well. She takes Prilosec twice daily. It is difficult to say if epigastric discomfort is actually new. She is feeling weak and gets fatigued very quickly. She does not appear pale or anemic. She is alert and oriented and able to give her own history. She does take a significant number of medications. She does take diuretics. Timing/Duration: unsure Severity: moderate Improving Factors: nothing Worsening Factors: movement Associated Symptoms: loss of appetite, malaise, weakness Allergies/Adverse Reactions: Allergies Rosuvastatin [From Crestor] Allergy (Severe, Verified 03/04/17 09:59) Rash Benzodiazepines Allergy (Verified 10/02/16 13:21) Erythromycin Allergy (Verified 10/02/16 13:21) Pentazocine [From Talwin Compound] Allergy (Verified 10/02/16 13:21) Rifampin Allergy (Verified 10/02/16 13:21) Atorvastatin [From Lipitor] Adverse Reaction (Intermediate, Verified 03/04/17 09 :59) Other Home Medications: Ambulatory Orders Atenolol [Tenormin] 25 mg PO BID #0 11/23/12 Citalopram Hydrobromide 20 mg PO DAILY #0 11/23/12 Omeprazole 20 mg PO ACBK 09/08/14 Potassium Chloride Tab [K-Dur] 10 meq PO DAILY 09/08/14 Propafenone HCl [Rythmol] 225 mg PO TID 09/08/14 Gabapentin 300 mg PO BEDTIME 09/13/16 diphenhydrAMINE HCL [Benadryl] 50 mg PO BEDTIME 09/13/16 Ipratropium/Albuterol [Duoneb] 3 ml NEB Q4HR 03/04/17 Ipratropium/Albuterol [Duoneb] 3 ml NEB Q4HR PRN 03/04/17 Melatonin-Pyridoxine [Melatonin] 1 tab PO 03/04/17 Review of Systems - Review of Systems Constitutional: States: malaise, weakness EENTM: States: no symptoms reported Respiratory: States: no symptoms reported, short of breath - mostly with exertion Cardiology: States: no symptoms reported Gastrointestinal/Abdominal: States: abdominal pain - mild, nausea - ild Genitourinary: States: no symptoms reported Musculoskeletal: States: muscle pain - generalized cramping Skin: States: no symptoms reported Neurological: States: anxiety, weakness - eneralized Endocrine: States: no symptoms reported All other Systems: No Change from Baseline Past Medical History (General) - Patient Medical History Hx Seizures: No Hx Stroke: No Hx Asthma: No Hx of COPD: Yes Hx Cardiac Disorders: Yes - A-fib Hx Congestive Heart Failure: Yes Hx Pacemaker: No Hx Hypertension: No Hx Diabetes: No Hx Gastroesophageal Reflux: No Hx Cancer: Yes - Cervical Hx MRSA: No Surgical History: Hysterectomy - Vaccination History Hx Tetanus, Diphtheria Vaccination: Yes Hx Influenza Vaccination: Yes Hx Pneumococcal Vaccination: Yes - Social History Hx Tobacco Use: No Hx Chewing Tobacco Use: No Hx Alcohol Use: No Hx Substance Use: No Hx Substance Use Treatment: No Hx Depression: No Feels Threatened In Home Enviroment: No Feels Threatened In a Relationship: No Hx Physical Abuse: No Hx Emotional Abuse: No Hx Suspected Abuse: No - Female History Patient is a Female of Child Bearing Age (10 -59 yrs old): No Patient : No Family Medical History - Family History Father Family History: No Known Living Status: Hx Cardiac Disease: Yes Mother Family History: No Known Living Status: Physical Exam - Physical Exam General Appearance: Alert, Comfortable, No apparent distress Eye Exam: bilateral normal Ears, Nose, Throat: hearing grossly normal, normal ENT inspection, normal pharynx Neck: non-tender, full range of motion, supple Respiratory: chest non-tender, lungs clear, normal breath sounds, no respiratory distress, no accessory muscle use Cardiovascular/Chest: normal peripheral pulses, no edema, other - egular rate but irregular rhythm. Peripheral Pulses: radial,right: 2+, radial,left: 2+, dorsalis pedis,right: 2+, dorsalis pedis,left: 2+ Gastrointestinal/Abdominal: soft, other - mild diffuse epigastric discomfort palpation Rectal Exam: deferred Back Exam: normal inspection, no CVA tenderness, no vertebral tenderness Extremity: normal range of motion, non-tender, normal inspection, no pedal edema , normal capillary refill Neurologic: tile professional II-XII nml as tested, alert, normal mood/affect, oriented x 3 Skin Exam: normal color Comments: Vital Signs - 24 hr 03/04/17 03/04/17 03/04/17 09:25 10:29 10:47 Temperature 98.9 F Pulse Rate [L 91 H 91 H 116 H Arm] Respiratory 20 20 Rate Blood Pressure 94/61 102/67 [L Arm] O2 Sat by Pulse 96 90 L Oximetry Progress - Progress Progress: 03/04/17 11:23 The patient is 76-year-old female presenting to the emergency room secondary to feelings of muscle cramping and generalized weakness progressive over the last several weeks. The patient was actually concerned that she was having another GI bleed however the source appears to be hypokalemia and dehydration most likely from her diuretic use. Magnesium level is being checked as she does have a history of hypomagnesemia. A urinalysis is also being checked. When she has a bowel movement a fecal occult can be performed on this however it would not be surprising if it was positive given her general history. A repeat H&H can be performed to make sure there is no significant change. The patient is being given a 500 cc fluid bolus along with supplemental potassium for her significant hypokalemia. Her renal function is worse than her baseline. This needs to be followed as well. admit for monitoring and correction of the above issues. The patient may yet require a physical therapy evaluation for weakness if she is not significantly improving after correction of the above issues.her blood pressures are borderline low. This is likely partly due to dehydration and I do suspect some correction will be seen with correcting that issue. However she is likely low normal at baseline given her numerous medications on board. 03/04/17 11:26 - Results/Orders Results/Orders: Vital Signs - 24 hr 03/04/17 03/04/17 03/04/17 09:25 10:29 10:47 Temperature 98.9 F Pulse Rate [L 91 H 91 H 116 H Arm] Respiratory 20 20 Rate Blood Pressure 94/61 102/67 [L Arm] O2 Sat by Pulse 96 90 L Oximetry Laboratory Tests 03/04/17 03/04/17 03/04/17 10:10 10:10 10:10 WBC 7.7 RBC 3.31 L Hgb 9.1 L Hct 28.5 L MCV 86.1 MCH 27.4 MCHC 32.0 L RDW 15.8 H Plt Count 301 MPV 8.2 Absolute Neuts (auto) 5.90 Absolute Lymphs (auto) 1.10 Absolute Monos (auto) 0.50 Absolute Eos (auto) 0.10 Absolute Basos (auto) 0.10 Neutrophils % 77.1 Lymphocytes % 14.1 L Monocytes % 6.4 Eosinophils % 1.2 Basophils % 1.2 PT 25.0 H* INR 2.230 PTT (SP) 34.5 Sodium 134 L Potassium 2.3 L* Chloride 91 L Carbon Dioxide 28 Anion Gap 17.3 BUN 33 H Creatinine 1.65 H BUN/Creatinine Ratio 20.0 Random Glucose 94 Serum Osmolality 275.2 Calcium 9.1 Total Bilirubin 0.8 AST 17 ALT 13 Alkaline Phosphatase 28 L Creatine Kinase 70 CK-MB (CK-2) 2.0 CK-MB (CK-2) % Not Reportable Troponin I < 0.02 Serum Total Protein 6.8 Albumin 3.4 Globulin 3.4 Albumin/Globulin Ratio 1.0 L Amylase 35 Lipase 26 EKG is pending at this time. Urinalysis and fecal occult as well as magnesium level are also pending at this time. - EKG/XRAY/CT CT Ordered: No CT Interpretation Call Back: No Departure - Departure Clinical Impression: Hypokalemia, Generalized weakness Acute renal failure Qualifiers: Acute renal failure type: unspecified Qualified Code(s): N17.9 - Acute kidney failure, unspecified Disposition: Admit Patient Referrals: JACKIE DUMAS [Primary Care Provider] - 1-2 Weeks Home Medications: Ambulatory Orders Atenolol [Tenormin] 25 mg PO BID #0 11/23/12 Citalopram Hydrobromide 20 mg PO DAILY #0 11/23/12 Omeprazole 20 mg PO ACBK 09/08/14 Potassium Chloride Tab [K-Dur] 10 meq PO DAILY 09/08/14 Propafenone HCl [Rythmol] 225 mg PO TID 09/08/14 Gabapentin 300 mg PO BEDTIME 09/13/16 diphenhydrAMINE HCL [Benadryl] 50 mg PO BEDTIME 09/13/16 Ipratropium/Albuterol [Duoneb] 3 ml NEB Q4HR 03/04/17 Ipratropium/Albuterol [Duoneb] 3 ml NEB Q4HR PRN 03/04/17 Melatonin-Pyridoxine [Melatonin] 1 tab PO 03/04/17 Decision To Admit - Decistion To Admit Decision to Admit Reason: Medical Nature Decision to Admit Date: 03/04/17 Decision to Admit Time: 11:28
[2017-03-04] MEDS ORDERED: MAGNESIUM SULFATE PREMIX 2GM 2 GM in PREMIX BAG 1 BAG IVPB ONE (11:39)
[2017-03-04] MEDS ORDERED: MAGNESIUM SULFATE PREMIX 2GM 50 ML IVPB ONE (11:42)
--- NOTE | 2017-03-04 12:18 | HP ---
SUPERVISING PHYSICIAN: Diego García M.D. CHIEF COMPLAINT: Tarry-looking stools. HISTORY OF PRESENT ILLNESS: Ms. Anasri is a 76 year-old female patient that presented to the Emergency Room today due to some feelings of fatigue and weakness along with some muscle cramps that had been progressively worsening over the last 2 weeks. She had seen her technical developer in the last week who recommended that she get a repeat CBC to make sure she had not been becoming significantly anemic. She had not followed through with the request. She does have a significant history of past GI bleeds with last hospitalization in August and September at which time she had required several transfusions. Last endoscopy was within this last year as reports were unavailable. There was no true source of any bleeding noted. She is on blood thinners and has been on Plavix and Coumadin in the past for atrial fibrillation, and was switched to Savaysa. It was noted that she has not had any transfusions since September of this year. She also has a long history of iron deficiency anemia. This morning prior to admission to the Emergency Department, she noted that she was having some darker colored stools that were concerning that were associated with some mild epigastric discomfort. She is on Prilosec 40 mg twice daily. Given that she was having similar symptoms from her last episodes of GI bleeding and that she is on a blood thinner, the patient was concerned that she was again having bleeding that was resulting in her weakness and overall muscle cramps. She also noted that she had been getting easily fatigued. In the Emergency Room, initial laboratory studies showed her H&H was on the anemic side at 9.1 and 28.5. Platelets were within normal limits at 301,000. Coagulation studies showed she had an elevated PT of 25.0 but a normal PTT at 34.5. Of significance on her chemistries was a moderate hypokalemia with hyponatremia with her potassium being 2.3 and sodium being 134. It was also noted on her chemistries that she was having some mild renal insufficiency with BUN of 33 and creatinine 1.65, again with the concerns that the possible BUN elevation was secondary to a GI source. She was also noted to have a moderate hypomagnesemia. Her cardiac enzymes were all negative. She was hemodynamically stable with blood pressure 102/67 with a heart rate of 91 to 116. She was satting 96% on room air initially on admission. Given her past history of recent GI bleeds and the ongoing anemia and change in her stools along with the weakness and hypokalemia, Dr. García requested the patient be placed in at least Observation for close monitoring and repeat laboratory studies to ensure that she was not having symptoms from ongoing bleeds as she is on Savaysa which again puts her at risk for GI bleeds. She was placed in Observation in stable condition. PAST MEDICAL HISTORY: 1. Atrial fibrillation previously on Coumadin now with Savaysa. 2. Gastroesophageal reflux disease. 3. Hypertension. 4. Chronic obstructive pulmonary disease in a chronic smoker having stopped 2 years previous. 5. History of cervical cancer. 6. Atherosclerosis with claudication and stent placement. PAST SURGICAL HISTORY: 1. Hemorrhoidectomy. 2. Bilateral femoral stents 2 years previously. 3. Abdominal hysterectomy. 4. Appendectomy. 5. Cervical cone biopsy. CURRENT HOME MEDICATIONS: 1. Tylenol 1,000 mg every 8 hours p.r.n. 2. Pulmicort 0.25 mg b.i.d. 3. Zanaflex 2 mg at bedtime. 4. Prednisone 10 mg daily. 5. Fenofibrate 145 mg daily. 6. Theophylline 75 mg daily extended release. 7. [place]ren 10/325 one tablet at bedtime. 8. Savaysa 60 mg at bedtime. 9. Lasix 80 mg daily. 10. Melatonin 10 mg at bedtime. 11. DuoNeb treatments every 4 hours as needed. 12. DuoNeb treatments scheduled every 4 hours. 13. Benadryl 100 mg at bedtime. 14. Tenormin 25 mg b.i.d. 15. Citalopram hydrobromide 20 mg daily. 16. Gabapentin 300 mg at bedtime. 17. Omeprazole 40 mg b.i.d. 18. K-Dur 20 mEq daily. 19. Rythmol 225 mg 3 times a day. ALLERGIES: ROSUVASTATIN, ERYTHROMYCIN, PENTAZOCINE, RIFAMPIN, LIPITOR, BENZODIAZEPINES. FAMILY HISTORY: Positive for coronary artery disease, hypertension and cancer. 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 She does have a longstanding history of smoking but quit approximately 2 years previously. She denies any significant alcohol or any illicit drug use. REVIEW OF SYSTEMS: CONSTITUTIONAL: As noted in the History of Present Illness, general malaise and ongoing weakness. No noted unintentional weight loss. HEENT: Denies any headaches, vision changes, ear aches, sore throat. RESPIRATORY: Some exertional dyspnea but no cough or shortness of breath. CARDIOVASCULAR: No chest pains, palpitations or syncopal episodes. GASTROINTESTINAL: Abdomen as noted in the History of Present Illness, mild abdominal pain mainly epigastric with some mild nausea and no reported emesis. GENITOURINARY: Denies any dysuria, hematuria or other urinary symptoms. MUSCULOSKELETAL: As noted in History of Present Illness, generalized muscle pain and generalized cramping. NEUROLOGIC: Notes that she has some anxiety and weakness which is generalized, but no syncopal episodes or neurological deficits. PHYSICAL EXAMINATION: VITAL SIGNS: Temperature 98.9, pulse 91, blood pressure 102/67, respirations 20 , satting 90 to 96% on room air at rest. Admission weight 68.2 kg. GENERAL: The patient on admission to the Medical/Surgical floor appears to be in no distress. She is comfortable. She does appear tired. HEENT: Tympanic membranes are clear bilaterally. Oropharynx is pink. Mucosal membranes are moist. Bilateral conjunctiva were pale. NECK: Full range of motion, non-tender. Supple with no jugular venous distention. CHEST: Lungs were clear to auscultation bilaterally without any rhonchi, wheezing or rales. CARDIOVASCULAR: Regular rate and rhythm without appreciable murmurs, gallops, or rubs. Note rhythm was slightly irregular. ABDOMEN: Soft. Just some mild tenderness overlying the epigastric area, otherwise non-tender throughout. No rebound tenderness. Bowel sounds were present and normal. EXTREMITIES: No clubbing, cyanosis or edema. NEUROLOGIC: Cranial nerves II-XII are grossly intact. Facial features were symmetrical. Extraocular movements are within normal limits. She was alert and oriented times three. LABORATORY: CBC on admission showed a white count of 7,700 with hemoglobin 9.1 , hematocrit 28.5, platelet count 301,000. RBC indices showed normocytic normochromic presentation. Differential showed to be within normal limits. Coagulation studies showed an elevated PT of 25.0 but she is on Savaysa with a PTT that was normal at 34.5, INR 2.23. Chemistries showed sodium was low at 134 , potassium 2.3 with carbon dioxide 28, BUN was elevated at 33, creatinine 1.65 , glucose 94, magnesium 1.5, calcium was normal at 9.1. Liver functions all showed to be within normal limits. Troponin showed to be less than 0.02. Urinalysis on dipstick showed trace of intact blood with small amount of bilirubin, 4.0 urobilinogen and trace leukocyte esterase. Microscopic was within normal limits. RADIOLOGY: Chest x-ray is pending. Blood bank type and cross is pending. ASSESSMENT: 1. Electrolyte imbalance with moderate hypokalemia, mild hyponatremia and moderate hypomagnesemia. Unknown etiology, possibly some of it is due to ongoing diuretic usage of Lasix. 2. Epigastric discomfort with concerns for a possible upper gastrointestinal bleed with the patient reporting some dark tarry stools with her being on anticoagulant to include Savaysa. 3. Normocytic normochromic anemia likely of chronic illness. Cannot completely rule out acute loss. 4. Chronic atrial fibrillation on Savaysa. 5. Acute renal injury possibly renal azotemia. 6. Chronic obstructive pulmonary disease in a chronic smoker. 7. Longstanding history of coronary artery disease with previous femoral artery stenting within the last year secondary to claudication with a total of 5 stents placed. 8. History of hypertension. 9. History of gastroesophageal reflux disease with a hiatal hernia. PLAN: The patient is placed in Observation tonight. Will continue to monitor closely. Will plan to repeat an H&H this afternoon and replace magnesium as appropriate as well as potassium both orally and IV. She is somewhat dehydrated. Given her elevated BUN and creatinine, therefore will start her on some IV fluids. Anticipate her H&H most likely will show a decrease once she is more fluid balanced. Will repeat labs in the morning as well to include a CBC and a CMP. Will resume her home medications once they have been updated and verified. She has been typed and screened with anticipation of possibly needing a transfusion. She does have occult blood stool pending. Will hold her Savaysa tonight until we have further results in regards to concerns for the ongoing active GI bleeding. Should she show to become hemodynamically unstable or show increase in bleeding or drop in her H&H significantly, certainly will need to consider transferring to GI services as she sees Dr. Venegas at [facility]. At this point, she seems to be stable and again will continue to monitor her H&H with anticipation of discharge within the next 1 to 2 days. Until discharge, will continue to monitor and treat appropriately. #[id number] [facility]
[2017-03-04] MEDS ORDERED: KCL 40MEQ/NS 1,000 ML IVS PRN (12:35)
[2017-03-04] MEDS ORDERED: ACETAMINOPHEN 325 MG TAB PO PRN (12:37)
[2017-03-04] MEDS ORDERED: IV SET AND CAP CHANGE INJ INJ SCH (13:00)
[2017-03-04] MEDS ORDERED: PANTOPRAZOLE INJECTION 80 MG in SODIUM CHLORIDE 0.9% 100ML 80 ML IVPB ONE (13:13)
[2017-03-04] MEDS ORDERED: SODIUM CHLORIDE 0.9% 250ML 250 ML ONE (14:09)
[2017-03-04] MEDS ORDERED: PANTOPRAZOLE SODIUM IV 40 MG VIAL ONE ×2 (14:11→14:20)
[2017-03-04] MEDS ORDERED: SODIUM CHLORIDE 0.9% 100ML 100 ML IVPB ONE (14:11)
[2017-03-04] MEDS ORDERED: POTASSIUM CHLORIDE 40mEq 20ML VIAL ONE (14:13)
[2017-03-04] MEDS: SUCRALFATE 1 GM TAB PO SCH ×2 (16:34→21:50)
[2017-03-04] MEDS: ONDANSETRON INJ 4 MG/2 ML VIAL IV PRN (16:34)
[2017-03-04] MEDS ORDERED: IPRATROPIUM/ALBUTEROL 3 ML VIAL NEB ONE (18:54)
[2017-03-04] MEDS: IPRATROPIUM/ALBUTEROL 3 ML VIAL NEB SCH (19:00)
[2017-03-04] MEDS ORDERED: LIDOCAINE VIS-MYLANTA 30 ML UD PO ONE (19:03)
--- NOTE | 2017-03-04 19:49 | PCM.CORE ---
Physician DVT/VTE - Prophylaxis Currently: Patient already on anticoagulation therapy - Nurse DVT Assessment & Total Each Risk Factor Represents 3 Points: Age over 75 years Each Risk Factor is 1 Point: Serious Lung disease (pnemonia <1month, COPD, emphysema,etc) DVT Assessment Score: 4 - 5 or more Very High Risk Treatments: Early Ambulation *, Sequential Compression Device
--- NOTE | 2017-03-04 20:11 | RAD ---
EXAM DESCRIPTION: Chest,2 Views CLINICAL HISTORY: 76 years Female SOB COMPARISON: 10/02/2016 FINDINGS: Cardiac size appears stable. Small amount of atelectasis or prominent epicardial fat in the lingula. There appears to be some atelectasis or infiltrate in the right middle lobe which is new as compared to the previous study. No additional areas of infiltrate are noted. No pneumothorax. IMPRESSION: Atelectasis versus small amount of infiltrate in the right middle lobe Electronically signed by: Laura Jasso 03/04/2017 8:10 PM CDT
[2017-03-04] MEDS ORDERED: BUDESONIDE NEBS 0.25 MG/2 ML INH ONE (20:26)
[2017-03-04] MEDS ORDERED: ALUM & MAG HYDROX-SIMETHICONE 30 ML UD ONE (21:00)
[2017-03-04] MEDS: BUDESONIDE NEBS 0.5 MG/2 ML VIAL NEB SCH (21:00)
[2017-03-04] MEDS ORDERED: PROPAFENONE HCL 225 MG PO SCH (21:00)
[2017-03-04] MEDS ORDERED: NON-FORMULARY MEDICATION 1 EA MIS (Melatonin [Melatonin] 10 MG) PO SCH (21:00)
[2017-03-04] MEDS ORDERED: LIDOCAINE HCL 2% (MOUTH-THROAT) 15 ML UD ONE (21:00)
[2017-03-04] MEDS ORDERED: MELATONIN 3 MG TAB ONE (21:04)
[2017-03-04] MEDS: ATENOLOL 25 MG TAB PO SCH (21:50)
[2017-03-04] MEDS: tiZANidine 4 MG TAB PO SCH (21:50)
[2017-03-04] MEDS: SODIUM CHLORIDE 0.9% (FLUSH) 10 ML SYG IV PRN (21:50)
[2017-03-04] MEDS: GABAPENTIN 300 MG CAP PO SCH (21:50)
[2017-03-04] MEDS: diphenhydrAMINE HCL 25 MG CAP PO SCH (21:50)
[2017-03-04] MEDS: HYDROcodone 10MG/APAP 325MG 1 EA TAB PO SCH (21:50)
[2017-03-04] MEDS: IPRATROPIUM/ALBUTEROL 3 ML VIAL NEB PRN (23:24)
[2017-03-05] MEDS: IPRATROPIUM/ALBUTEROL 3 ML VIAL NEB PRN ×2 (02:15→18:08)
[2017-03-05] MEDS: ONDANSETRON INJ 4 MG/2 ML VIAL IV PRN ×2 (02:25→10:58)
[2017-03-05] MEDS: SUCRALFATE 1 GM TAB PO SCH ×4 (07:58→20:47)
[2017-03-05] MEDS ORDERED: ACETAMINOPHEN 325 MG TAB PO ONE (08:14)
[2017-03-05] MEDS: BUDESONIDE NEBS 0.5 MG/2 ML VIAL NEB SCH ×2 (08:14→19:30)
[2017-03-05] MEDS ORDERED: diphenhydrAMINE HCL 50 MG/ML VIAL IV ONE (08:14)
[2017-03-05] MEDS: IPRATROPIUM/ALBUTEROL 3 ML VIAL NEB SCH ×4 (08:14→19:30)
[2017-03-05] MEDS ORDERED: FUROSEMIDE INJ 40 MG/4 ML VIAL IV ONE (08:20)
[2017-03-05] MEDS ORDERED: SODIUM CHLORIDE 0.9% 500ML 500 ML IVS SCH (08:30)
[2017-03-05] MEDS ORDERED: predniSONE 10 MG TAB PO SCH (09:00)
[2017-03-05] MEDS ORDERED: FENOFIBRATE 145 MG PO SCH (09:00)
[2017-03-05] MEDS: PROPAFENONE 150 MG TAB PO SCH ×3 (09:38→20:48)
[2017-03-05] MEDS: PANTOPRAZOLE SODIUM TAB 40 MG PO SCH ×2 (09:38→16:01)
[2017-03-05] MEDS: POTASSIUM CHLORIDE 20 MEQ TAB PO SCH (09:39)
[2017-03-05] MEDS: CITALOPRAM HBR 20 MG TAB PO SCH (09:39)
[2017-03-05] MEDS: ATENOLOL 25 MG TAB PO SCH ×2 (09:39→20:49)
[2017-03-05] MEDS: THEOPHYLLINE PO SCH (09:40)
--- NOTE | 2017-03-05 13:49 | PN ---
DATE: 03/05/17 SUPERVISING PHYSICIAN: Diego García M.D. SUBJECTIVE: The patient continues to feel weak. She continues to have some epigastric discomfort which is improving with GI cocktail administration. H&H this morning did show a drop after given IV fluids and correction of volume status before she is going to be transfused 2 units of packed red blood cells this morning which she is in agreement to. She has not had any nausea or vomiting, but notes that she has had a few more tarry-like stools. OBJECTIVE: VITAL SIGNS: Pulse 116, blood pressure 105/65, respirations 16, satting 100% on nasal cannula at 2 liters at rest. I's and O's show a positive balance of 875 with 1800 in, 925 out. Weight 68.2 kg. CHEST: Lungs are clear to auscultation bilaterally. HEART: Slightly irregular rate and rhythm. ABDOMEN: Soft with continued mild epigastric discomfort on palpation but no rebound tenderness. Bowel sounds are present. EXTREMITIES: No clubbing, cyanosis or edema. NEUROLOGIC: She is alert and oriented times three. LABORATORY: White count today is 5.5, hemoglobin is down to 7.6, hematocrit 23.8 with platelet count 267,000. Differential shows to be within normal limits. Chemistries show now normalized electrolytes with sodium 139, potassium is up to 3.7, BUN is down to 30, creatinine is down to 1.59, calcium 8.9. Liver functions show to be within normal limits. She has had 3 sets of troponins which were all less than 0.02. RADIOLOGY: Chest x-ray last night per radiology interpretation showed atelectasis versus small amount of infiltrate within the right middle lobe. ASSESSMENT: 1. Normocytic normochromic anemia with concern for acute upper gastric loss with significant gastric discomfort with the patient having stable hemodynamics now requiring transfusion of 2 units of packed red blood cells. 2. Epigastric discomfort with concerns for a possible upper gastrointestinal bleed with the patient continuing to have some dark tarry stools, but showing some improvement with GI cocktails and the patient having been on previous anticoagulant therapy with Savaysa which has been stopped. 3. Electrolyte imbalance with hypokalemia and hyponatremia and hypomagnesemia resolved after replacement. 4. Chronic atrial fibrillation on Savaysa which has been stopped secondary to ongoing GI loss. 5. Acute renal injury possibly secondary to renal azotemia with some elevated BUN from gastric blood loss showing some improvement with IV fluids. 6. Chronic obstructive pulmonary disease in a chronic smoker, stable. 7. Longstanding history of coronary artery disease with previous femoral artery stenting times 5 stents last year secondary to claudication. 8. History of hypertension. 9. History of gastroesophageal reflux disease with hiatal hernia. PLAN: The patient's H&H did drop today and given his 7.6 hemoglobin and concerns for acute loss, will plan to transfuse 2 units of packed red blood cells. She will be given Benadryl, Tylenol and Lasix after the second unit. Will continue to monitor the patient closely. She is on telemetry. Will assess the second line just for cautionary purposes should the patient become unstable and does need transfer to [facility] for GI services. At this point, the patient remains stable. Will plan to reevaluate an H&H in the morning with anticipation of possibly discharging Tuesday at which time she will need close clinical followup with her GI specialist, Dr. Venegas. Until then, continue to monitor closely and treat appropriately. #[id number] [facility]
[2017-03-05] MEDS ORDERED: FUROSEMIDE INJ 40 MG/4 ML VIAL ONE (18:26)
[2017-03-05] MEDS: SODIUM CHLORIDE 0.9% (FLUSH) 10 ML SYG IV PRN (19:00)
[2017-03-05] MEDS ORDERED: MELATONIN 3 MG TAB ONE (19:17)
[2017-03-05] MEDS: MELATONIN 3 MG TAB PO SCH (20:47)
[2017-03-05] MEDS: GABAPENTIN 300 MG CAP PO SCH (20:47)
[2017-03-05] MEDS: tiZANidine 4 MG TAB PO SCH (20:47)
[2017-03-05] MEDS: diphenhydrAMINE HCL 25 MG CAP PO SCH (20:48)
[2017-03-05] MEDS: HYDROcodone 10MG/APAP 325MG 1 EA TAB PO SCH (20:49)
[2017-03-06] MEDS: PANTOPRAZOLE SODIUM TAB 40 MG PO SCH ×2 (06:57→16:29)
[2017-03-06] MEDS: SUCRALFATE 1 GM TAB PO SCH ×4 (06:58→21:52)
[2017-03-06] MEDS: IPRATROPIUM/ALBUTEROL 3 ML VIAL NEB SCH ×4 (08:07→20:00)
[2017-03-06] MEDS: BUDESONIDE NEBS 0.25 MG/2 ML INH NEB SCH ×2 (08:07→20:00)
[2017-03-06] MEDS: ATENOLOL 25 MG TAB PO SCH ×2 (08:52→21:52)
[2017-03-06] MEDS: PROPAFENONE 150 MG TAB PO SCH ×3 (08:52→21:52)
[2017-03-06] MEDS: POTASSIUM CHLORIDE 20 MEQ TAB PO SCH (08:52)
[2017-03-06] MEDS: CITALOPRAM HBR 20 MG TAB PO SCH (08:53)
[2017-03-06] MEDS: THEOPHYLLINE PO SCH (08:54)
--- NOTE | 2017-03-06 17:22 | PN ---
DATE: 03/06/17 SUPERVISING PHYSICIAN: Diego García M.D. SUBJECTIVE: The patient received 2 units of packed red blood cells last night without any complications. This morning, she feels much better, not quite as weak and less short of breath. She still has a little discomfort in her epigastric region but is much improved from previous days. She has not had any nausea or vomiting. She has also noted that her stool has changed characteristics from a tarry-like stool to normal brown in appearance. OBJECTIVE: VITAL SIGNS: Pulse 94, blood pressure 111/72, respirations 19, satting 95% on nasal cannula at 2 liters. I's and O's show a positive balance of 970 with 1729 in, 750 out. Weight is 68.2 kg. CHEST: Lungs were clear to auscultation, just diminished bilaterally towards the bases. HEART: Slightly irregular rate and rhythm. ABDOMEN: Soft with continued mild epigastric discomfort on palpation. No rebound tenderness. Bowel sounds are present. EXTREMITIES: No clubbing, cyanosis or edema. NEUROLOGIC: She is alert and oriented times three. LABORATORY: White count 6.9, hemoglobin is up to 10.5, hematocrit 32.8 with platelet count 256,000. Differential shows to be within normal limits. Chemistry today, PT has normalized at 13.6 with a normal INR of 1.2. Chemistries show normal electrolytes with potassium 3.6, BUN 30, creatinine 1.75. ASSESSMENT: 1. Normocytic normochromic anemia with a past history of upper gastric bleeds with significant gastric discomfort on admission with the patient continuing to show stable hemodynamics but requiring transfusion of 2 units of packed red blood cells having clinical improvement after and no complications noted with transfusion. 2. Epigastric discomfort likely due to acute upper gastrointestinal bleed with the patient initially having some dark tarry stools, but now transitioned to normal appearance having lessening discomfort with GI cocktails and ongoing Protonix with the patient having been on anticoagulant therapy with Savaysa which has been stopped since admission. 3. Electrolyte imbalance with hypokalemia, hyponatremia and hypomagnesemia, resolved with replacement. 4. Chronic atrial fibrillation on Savaysa chronically having been stopped secondary to acute blood loss. 5. Acute renal injury possibly secondary to renal azotemia with some elevated BUN from gastric blood loss showing improvement with IV fluids. 6. Chronic obstructive pulmonary disease in a chronic smoker, stable. 7. Longstanding history of coronary artery disease with previous femoral artery stenting times 5 within the last year secondary to claudication. 8. History of hypertension. 9. History of gastroesophageal reflux disease with a hiatal hernia. PLAN: The patient's H&H this morning did show improvement. Will plan to repeat an H&H later today around 1700. She will continue with aggressive pulmonary hygiene. I did stop her Prednisone in addition to the Savaysa. She is doing okay in regards to respiratory efforts with continued breathing treatments. Will hopefully be able to discharge the patient once H&H indicates to be stable. Once stable enough to be discharged, she will need close clinical followup with Dr. Venegas, and EGD and colonoscopy at some point. She will need to be resumed on the Savaysa once clinically shown to be without acute bleed given that she does have a longstanding history of atrial fibrillation. Until discharge, will continue to monitor and treat appropriately. #[id number] [facility]
[2017-03-06] MEDS: HYDROcodone 10MG/APAP 325MG 1 EA TAB PO SCH (20:28)
[2017-03-06] MEDS: GABAPENTIN 300 MG CAP PO SCH (20:28)
[2017-03-06] MEDS: diphenhydrAMINE HCL 25 MG CAP PO SCH (21:51)
[2017-03-06] MEDS: tiZANidine 4 MG TAB PO SCH (21:52)
[2017-03-06] MEDS: MELATONIN 3 MG TAB PO SCH (21:52)
[2017-03-06] MEDS: SODIUM CHLORIDE 0.9% (FLUSH) 10 ML SYG IV PRN (21:53)
[2017-03-06] MEDS: ONDANSETRON INJ 4 MG/2 ML VIAL IV PRN (22:55)
[2017-03-07 03:00] VITALS: TEMP 97.9
[2017-03-07 06:34] VITALS: BP 93/60
[2017-03-07] MEDS: PANTOPRAZOLE SODIUM TAB 40 MG PO SCH (06:34)
[2017-03-07] MEDS: SUCRALFATE 1 GM TAB PO SCH (06:34)
[2017-03-07] MEDS: ATENOLOL 25 MG TAB PO SCH (09:16)
[2017-03-07] MEDS: PROPAFENONE 150 MG TAB PO SCH (09:16)
[2017-03-07] MEDS: CITALOPRAM HBR 20 MG TAB PO SCH (09:17)
[2017-03-07] MEDS: POTASSIUM CHLORIDE 20 MEQ TAB PO SCH (09:17)
[2017-03-07] MEDS: THEOPHYLLINE PO SCH (09:19)
[2017-03-09 08:07] VITALS: O2SAT 96
--- NOTE | 2017-03-10 10:01 | DS ---
SUPERVISING PHYSICIAN: Rafy Guajardo MD DISCHARGE DIAGNOSIS: 1. Normocytic/normochromic anemia with a past history of upper gastric bleeds with significant gastric discomfort on admission with the patient continuing to show stable hemodynamics, but requiring transfusion of 2 units of packed red blood cells having clinical improvement after and no complications noted with transfusion. 2. Epigastric discomfort, likely due to acute upper gastrointestinal bleed with the patient having past history of dark, tarry stools, but transitioned to normal appearance prior to discharge with epigastric discomfort resolving after GI cocktails and Protonix administration with the patient having been recently on anticoagulant therapy with Savaysa which was stopped through admission, but resumed prior to discharge after talking with Dr. Venegas. 3. Electrolyte imbalance with hypokalemia, hyponatremia and hypomagnesemia, resolved with replacement. 4. Chronic atrial fibrillation on Savaysa chronically having been stopped secondary to acute blood loss and resumed prior to discharge. 5. Acute renal injury possibly secondary to renal azotemia with some elevated BUN from gastric blood loss, showing improvement with IV fluids. 6. Chronic obstructive pulmonary disease in a chronic smoker, stable. 7. Longstanding history of coronary artery disease with previous femoral artery stenting times 5 within the last year secondary to claudication. 8. History of hypertension. 9. History of gastroesophageal reflux disease with a hiatal hernia. HISTORY OF PRESENT ILLNESS: Ms. Ansari is a 76-year-old female patient that presented to the Emergency Room on date of admission due to some feelings of fatigue and weakness along with some muscle cramps that had been progressively worsening over the last 2 weeks. She had seen her safemaker in the last week who recommended that she get a repeat CBC to make sure she had not been becoming significantly anemic. She had not followed through with the request. She does have a significant history of past GI bleeds with last hospitalization in August and September at which time she had required several transfusions. Last endoscopy was within this last year and reports were unavailable at time of admission. There was no true source of any bleeding noted on admission. She is on blood thinners and has been on Plavix and Coumadin in the past for atrial fibrillation, and was switched to Savaysa. It was noted that she has not had any transfusions since September of this year. She also has a long history of iron deficiency anemia. This morning prior to admission to the Emergency Department, she noted that she was having some darker colored stools that were concerning that were associated with some mild epigastric discomfort. She is on Prilosec 40 mg twice daily. Given that she was having similar symptoms from her last episodes of GI bleeding and that she is on a blood thinner, the patient was concerned that she was again having bleeding that was resulting in her weakness and overall muscle cramps. She also noted that she had been getting easily fatigued. In the Emergency Room, initial laboratory studies showed her hemoglobin and hematocrit were on the anemic side at 9.1 and 28.5. Platelets were within normal limits at 301,000. Coagulation studies showed she had an elevated PT of 25.0 but a normal PTT at 34.5. Of significance on her chemistries was a moderate hypokalemia with hyponatremia with her potassium being 2.3 and sodium being 134. It was also noted on her chemistries that she was having some mild renal insufficiency with BUN of 33 and creatinine 1.65, again with the concerns that the possible BUN elevation was secondary to a GI source. She was also noted to have a moderate hypomagnesemia. Her cardiac enzymes were all negative. She was hemodynamically stable with blood pressure 102/67 with a heart rate of 91 to 116. She was satting 96% on room air initially on admission. Given her past history of recent GI bleeds and the ongoing anemia and change in her stools along with the weakness and hypokalemia, Dr. García requested the patient be placed in at least Observation for close monitoring and repeat laboratory studies to ensure that she was not having symptoms from ongoing bleeds as she is on Savaysa which again puts her at risk for GI bleeds. She was placed in Observation initially in stable condition. LABORATORY: CBC on admission showed white count 7.5, at discharge it was 6.7. Initial hemoglobin was 9.1 and hematocrit 28.5 the morning after admission, hemoglobin and hematocrit dropped to 7.6 and 23.8. She was transfused 2 units of packed red blood cells. Repeat hemoglobin and hematocrit after showed hemoglobin 10.7 and hematocrit 33.3. After transfusion and on the morning of discharge, hemoglobin was 10 and hematocrit 33.1. Differential was within normal limits as well as platelet count at 238,000. Coagulation studies showed an elevated PT of 25.0. Savaysa was held and on the morning of discharge, it was 13.6. INR 1.21. Chemistries on admission showed electrolyte imbalance with potassium 2.3, sodium 134, BUN 33, creatinine 1.65. After treatment with IV fluids and transfusion of 2 units of packed red blood cells, on the morning discharge potassium had normalized to 3.9. All other electrolytes were within normal limits. BUN was down to 31, creatinine 1.59. Calcium 9.8. Magnesium on admission was 1.5. After replacement and recheck it was 1.8. Troponins were all within normal limits at less than 0.05. Amylase and lipase were all within normal limits. MICROBIOLOGY: There were no specimens collected. RADIOLOGY: Chest x-ray per radiologic interpretation in the Emergency Department, two view, showed atelectasis versus small infiltrate within the right middle lobe. EKG showed atrial fibrillation with controlled ventricular rate with no ST or T wave changes or ischemia noted. HOSPITAL COURSE: Ms. Ansari was admitted as noted in history of present illness due to weakness, fatigue and muscle cramps with concerns for GI bleed. Her hemoglobin and hematocrit initially showed her to be anemic and it did drop enough to require 2 units of packed red blood cells prior to discharge. She was started on breathing treatments and did well. Her potassium was normalized with IV potassium as well as magnesium. After transfusion of 2 units and recheck the morning prior to discharge, she was stable as well as hemodynamically stable. Vital signs at discharge showed blood pressure 108/68. Pulse 98 to 100. Saturation 94% on nasal cannula at rest. It was felt that she was clinically stable and was discharged. PLAN: Ms. Ansari was discharged on 03/07/17 with instructions to have close clinical followup with her primary care provider, Dr. Diaz, as scheduled. I also smoke with Dr. Venegas who recommended she followup with him and they would make arrangements for that appointment either this week or next week or sooner if needed. Dr. Venegas recommended to resume her Savaysa as he felt there was not a significant risk for continued bleeding. She was to resume all her other home medications. She was to take new medications as prescribed and return to to the hospital should she have any concerning symptoms. She has a followup appointment with Dr. Diaz on 03/08/17 at 1500. DISCHARGE MEDICATIONS: 1. Carafate 1 gram with each meal and at bedtime, #40. 2. She was already on a proton pump inhibitor prior to discharge. This was resumed. 3. She was to resume her Savaysa as directed prior to admission. DIET AT DISCHARGE: [place] and advance as tolerated, to avoid spicy foods, no alcohol, no caffeine drinks, avoid any NSAIDs. ACTIVITY: Increase as tolerated. CONDITION AT DISCHARGE: Stable and improved. #[id number] [facility]
== END 2017-03-07 12:51 | disposition home or self-care (01) | DRG 378 ==
LOC: ER 09:10 → MS 12:17 → OBSVTOIN 03-05 08:27
PROVIDERS: ADMIT Nurse Practitioner Family; ATTEND Nurse Practitioner Family
PROC: 30233N1 Transfusion of Nonautologous Red Blood Cells into Peripheral Vein, Percutaneous Approach (ICD-10-PCS; principal; 2017-03-05)
DX: K92.1 Melena (principal); E87.1 Hypo-osmolality and hyponatremia; N17.9 Acute kidney failure, unspecified; E87.6 Hypokalemia; E83.42 Hypomagnesemia; D63.8 Anemia in other chronic diseases classified elsewhere; I48.2 Chronic atrial fibrillation; K21.9 Gastro-esophageal reflux disease without esophagitis; K44.9 Diaphragmatic hernia without obstruction or gangrene; I10 Essential (primary) hypertension; J44.9 Chronic obstructive pulmonary disease, unspecified; Z87.891 Personal history of nicotine dependence; Z79.02 Long term (current) use of antithrombotics/antiplatelets; Z95.820 Peripheral vascular angioplasty status with implants and grafts; Z79.51 Long term (current) use of inhaled steroids; Z79.52 Long term (current) use of systemic steroids; Z79.899 Other long term (current) drug therapy; Z88.8 Allergy status to other drugs, medicaments and biological substances; Z88.1 Allergy status to other antibiotic agents

== ENCOUNTER 2017-05-24 18:01 | Emergency (ER) | payer MEDICARE ==
[2017-05-24] MEDS ORDERED: SODIUM CHLORIDE 0.9% (FLUSH) 10 ML SYG IV PRN (18:32)
[2017-05-24] MEDS ORDERED: methylPREDNISolone SODIUM SUC 125 MG/2 ML VIAL IV ONE (18:34)
--- NOTE | 2017-05-24 18:38 | ED.PDOC ---
History of Present Illness - General Source: patient, family Exam Limitations: no limitations - History of Present Illness Initial Comments: PT PRESENTS TO THE ED WITH COMPLAINT OF SOB THAT BEGAN SUDDENLY ABOUT 3 HOURS AGO. PT STATES THAT SHE ADMINISTERED A DUONEB, BREO, PULMICORT AND INCRUSE INHALERS AT HOME WITHOUT RELIEF. PT STATES THAT SYMPTOMS RESOLVED SHORTLY AFTER ARRIVING IN THE ED. PT DENIES CHEST PAIN, COUGH, OR FEVER. Timing/Duration: 1-3 hours Severity: moderate Activities at Onset: none Possible Cause: occasional episodes Improving Factors: nothing Worsening Factors: nothing Associated Symptoms: denies symptoms Respiratory Risk Factors: no cause identified <Julian Diana H - Last Filed: 05/24/17 18:40> <Dylan Dolan - Last Filed: 05/24/17 22:22> - General Chief Complaint: Respiratory Problem Stated Complaint: increased SOB Time Seen by Provider: 05/24/17 18:32 - History of Present Illness Allergies/Adverse Reactions: Allergies Rosuvastatin [From Crestor] Allergy (Severe, Verified 05/24/17 18:11) Rash Erythromycin Allergy (Verified 05/24/17 18:11) Nausea Pentazocine [From [place]win Compound] Allergy (Verified 05/24/17 18:11) Rash Rifampin Allergy (Verified 05/24/17 18:11) Rash Atorvastatin [From Lipitor] Adverse Reaction (Intermediate, Verified 05/24/17 18 :11) Other Causes muscle pain Benzodiazepines Adverse Reaction (Verified 05/24/17 18:11) Other Some benzos make patient "ZONED out for days" Home Medications: Ambulatory Orders Atenolol [Tenormin] 25 mg PO BID #0 11/23/12 Citalopram Hydrobromide 20 mg PO DAILY #0 11/23/12 Omeprazole 40 mg PO BID 09/08/14 Potassium Chloride Tab [K-Dur] 20 meq PO DAILY 09/08/14 Propafenone HCl [Rythmol] 225 mg PO TID 09/08/14 Gabapentin 300 mg PO BEDTIME 09/13/16 diphenhydrAMINE HCL [Benadryl] 100 mg PO BEDTIME 09/13/16 Acetaminophen [Tylenol] 1,000 mg PO Q8HR PRN 03/04/17 Budesonide (Inhalation) [Pulmicort] 0.25 mg IN BID 03/04/17 Edoxaban Tosylate [Savaysa] 60 mg PO BEDTIME 03/04/17 Fenofibrate 145 mg PO DAILY 03/04/17 Furosemide [Lasix] 80 mg PO DAILY 03/04/17 HYDROcodone 10MG/APAP 325MG [[place] 10/325] 1 tab PO BEDTIME 03/04/17 Ipratropium/Albuterol [Duoneb] 3 ml NEB Q4HR 03/04/17 Ipratropium/Albuterol [Duoneb] 3 ml NEB Q4HR PRN 03/04/17 Melatonin 10 mg PO BEDTIME 03/04/17 Theophylline [Theophylline ER] 75 mg PO DAILY 03/04/17 tiZANidine [Zanaflex] 2 mg PO BEDTIME 03/04/17 Sucralfate Tab [Carafate Tab] 1 gm PO ACHS #40 tablet 03/07/17 Fluticasone Furoate-Vilanterol [Breo Ellipta 200-25 Mcg/INH] 1 inh IN BID Umeclidinium [place] [Incruse Ellipta] 62.5 mcg IN DAILY 05/24/17 metOLazone [Zaroxolyn] 5 mg PO DAILY #7 tab 05/24/17 Review of Systems - Review of Systems Constitutional: Denies: chills, fever EENTM: Denies: nose congestion, throat pain Respiratory: States: see HPI, short of breath, wheezing. Denies: cough, stridor Cardiology: Denies: chest pain, palpitations, syncope Gastrointestinal/Abdominal: Denies: diarrhea, nausea, vomiting Genitourinary: Denies: dysuria, frequency Musculoskeletal: Denies: joint pain, joint swelling Skin: Denies: change in hair/nails, dryness Neurological: States: headache. Denies: numbness, paresthesia Endocrine: States: no symptoms reported Hematologic/Lymphatic: States: no symptoms reported <Julian Diana - Last Filed: 05/24/17 18:40> Past Medical History (General) - Patient Medical History Hx Seizures: No Hx Stroke: No Hx Asthma: No Hx of COPD: Yes Hx Cardiac Disorders: Yes - A-fib Hx Congestive Heart Failure: Yes Hx Pacemaker: No Hx Hypertension: Yes Hx Diabetes: No Hx Gastroesophageal Reflux: No Hx Cancer: No Hx MRSA: No Surgical History: cholecystectomy - Vaccination History Hx Tetanus, Diphtheria Vaccination: No Hx Influenza Vaccination: Yes Hx Pneumococcal Vaccination: Yes - Social History Hx Tobacco Use: No Hx Chewing Tobacco Use: No Hx Alcohol Use: No Hx Substance Use: No Hx Substance Use Treatment: No Hx Depression: No Hx Physical Abuse: No Hx Emotional Abuse: No Hx Suspected Abuse: No - Female History Patient : No <Julian Diana - Last Filed: 05/24/17 18:40> Family Medical History - Family History Father Family History: No Known Living Status: Hx Cardiac Disease: Yes Mother Family History: No Known Living Status: <Julian Diana - Last Filed: 05/24/17 18:40> Physical Exam - Physical Exam General Appearance: Alert, Comfortable, No apparent distress, Well Groomed, Well Hydrated, Well Nourished Eyes, Ears, Nose, Throat Exam: normal ENT inspection Neck: full range of motion, supple Respiratory: lungs clear, normal breath sounds, no respiratory distress, no accessory muscle use Cardiovascular/Chest: regular rate, rhythm, no murmur Gastrointestinal/Abdominal: non tender, soft Extremity: normal range of motion, non-tender, normal inspection Neurologic: alert, normal mood/affect, oriented x 3 Skin Exam: normal color, warm/dry <Julian Diana - Last Filed: 05/24/17 18:40> Progress - Progress Progress: 05/24/17 22:10 Last Vital Signs Temp 98.2 F 05/24/17 21:27 Pulse 115 H 05/24/17 21:27 Resp 22 05/24/17 21:27 BP 142/100 05/24/17 21:27 Pulse Ox 96 05/24/17 21:27 05/24/17 18:32 Sodium Chloride 0.9% (Flush) [Saline Flush Syringe] 10 ml IV PRN PRN 05/24/17 18:33 IV Care:Saline Lock per Protoc QSHIFT Telemetry .ONCE 05/24/17 19:39 Hold Metformin x 48Hrs [id number] 05/25/17 09:00 Pulse Ox Daily Laboratory Results - last 24 hr 05/24/17 05/24/17 18:45 18:45 WBC 7.2 RBC 3.96 L Hgb 10.8 L Hct 33.9 L MCV 85.7 MCH 27.2 MCHC 32.0 L RDW 16.3 H Plt Count 225 MPV 8.6 Absolute Neuts (auto) 5.20 Absolute Lymphs (auto) 1.20 Absolute Monos (auto) 0.50 Absolute Eos (auto) 0.10 Absolute Basos (auto) 0.20 H Neutrophils % 72.3 Lymphocytes % 17.1 L Monocytes % 6.6 Eosinophils % 1.9 Basophils % 2.1 H Sodium 143 Potassium 3.4 L Chloride 110 Carbon Dioxide 23 Anion Gap 13.4 BUN 27 H Creatinine 1.12 BUN/Creatinine Ratio 24.1 H Random Glucose 93 Serum Osmolality 289.8 Calcium 8.8 Total Bilirubin 0.4 AST 50 H ALT 21 Alkaline Phosphatase 49 B-Natriuretic Peptide 612.0 H* Serum Total Protein 7.0 Albumin 3.7 Globulin 3.3 Albumin/Globulin Ratio 1.1 - EKG/XRAY/CT XRAY: chest - slight pulmonary congestion CT Ordered: Yes - neck-generalized thickening/prominence of soft palate <Dylan Dolan R - Last Filed: 05/24/17 22:22> Departure <Julian Diana H - Last Filed: 05/24/17 18:40> - Departure Time of Disposition: 22:15 <Dylan Dolan - Last Filed: 05/24/17 22:22> - Departure Clinical Impression: Congestive heart failure Qualifiers: Congestive heart failure type: combined Congestive heart failure chronicity: acute on chronic Qualified Code(s): I50.43 - Acute on chronic combined systolic (congestive) and diastolic (congestive) heart failure COPD (chronic obstructive pulmonary disease) Qualifiers: COPD type: COPD with acute exacerbation Qualified Code(s): J44.1 - Chronic obstructive pulmonary disease with (acute) exacerbation Disposition: Discharge to Home or Self Care Condition: Fair Departure Forms: ED Discharge - Pt. Copy, Patient Portal Self Enrollment Instructions: DI for Heart Failure, How to [place] With Heart Failure, DI for Chronic Obstructive Pulmonary Disease Referrals: JACKIE DUMAS [Primary Care Provider] - 1-2 Weeks Prescriptions: metOLazone [Zaroxolyn] 5 mg PO DAILY #7 tab Home Medications: Ambulatory Orders Atenolol [Tenormin] 25 mg PO BID #0 11/23/12 Citalopram Hydrobromide 20 mg PO DAILY #0 11/23/12 Omeprazole 40 mg PO BID 09/08/14 Potassium Chloride Tab [K-Dur] 20 meq PO DAILY 09/08/14 Propafenone HCl [Rythmol] 225 mg PO TID 09/08/14 Gabapentin 300 mg PO BEDTIME 09/13/16 diphenhydrAMINE HCL [Benadryl] 100 mg PO BEDTIME 09/13/16 Acetaminophen [Tylenol] 1,000 mg PO Q8HR PRN 03/04/17 Budesonide (Inhalation) [Pulmicort] 0.25 mg IN BID 03/04/17 Edoxaban Tosylate [Savaysa] 60 mg PO BEDTIME 03/04/17 Fenofibrate 145 mg PO DAILY 03/04/17 Furosemide [Lasix] 80 mg PO DAILY 03/04/17 HYDROcodone 10MG/APAP 325MG [[place] 10/325] 1 tab PO BEDTIME 03/04/17 Ipratropium/Albuterol [Duoneb] 3 ml NEB Q4HR 03/04/17 Ipratropium/Albuterol [Duoneb] 3 ml NEB Q4HR PRN 03/04/17 Melatonin 10 mg PO BEDTIME 03/04/17 Theophylline [Theophylline ER] 75 mg PO DAILY 03/04/17 tiZANidine [Zanaflex] 2 mg PO BEDTIME 03/04/17 Sucralfate Tab [Carafate Tab] 1 gm PO ACHS #40 tablet 03/07/17 Fluticasone Furoate-Vilanterol [Breo Ellipta 200-25 Mcg/INH] 1 inh IN BID Umeclidinium [place] [Incruse Ellipta] 62.5 mcg IN DAILY 05/24/17 metOLazone [Zaroxolyn] 5 mg PO DAILY #7 tab 05/24/17 Additional Instructions: Continue with all home meds;Keep appointment with assessment specialist this ;Return to emergency room as needed
[2017-05-24] MEDS ORDERED: ACETAMINOPHEN 500 MG TAB PO ONE (18:39)
[2017-05-24] MEDS ORDERED: IPRATROPIUM/ALBUTEROL 3 ML VIAL NEB ONE (18:58)
[2017-05-24] MEDS ORDERED: RACEPINEPHRINE 2.25% 0.5 ML UD NEB ONE (19:57)
--- NOTE | 2017-05-24 19:59 | RAD ---
EXAM: Chest,1 View CLINICAL INDICATION: 76-year-old female with shortness of breath. TECHNIQUE: Single view, AP portable chest was obtained. COMPARISON: Two-view chest 03/04/2017. FINDINGS: Stable cardiac and mediastinal silhouette. Heart size is top normal. Bilateral basilar interstitial prominence raising the possibility of slight pulmonary vascular congestion or edema. Lungs are otherwise clear without focal opacity, pneumothorax or pleural effusions. The visualized bones are within normal limits. IMPRESSION: Bilateral basilar interstitial prominence raising the possibility of slight pulmonary vascular congestion or edema. Electronically signed by: Trish Tillman MD 05/24/2017 7:[address] [facility] Workstation: [id number]
[2017-05-24] MEDS ORDERED: BUMETANIDE 0.25 MG/ML VIAL IV ONE (20:27)
[2017-05-24] MEDS ORDERED: SODIUM CHLORIDE 0.9% NEB 3 ML VIAL ONE (20:33)
[2017-05-24 21:28] VITALS: TEMP 98.2
--- NOTE | 2017-05-24 21:58 | CT ---
EXAM DATE: 05/24/2017 7:38 PM CARE ASSOCIATE. PROCEDURE: CT NECK WITH IV CONTRAST. INDICATION: dysphonia. COMPARISON: None. TECHNIQUE: Axial CT images of the neck were obtained after administration of intravenous contrast. Coronal and sagittal reformats were also obtained. This exam was performed according to our departmental dose-optimization program which includes use of Automated Exposure Control, adjustment of the mA and/or kV according to patient size and/or use of iterative reconstruction technique. FINDINGS: There is generalized thickening of the soft palate posteriorly, for example image 51 series 604. Unremarkable nasopharynx. Maxillary dentures in place. No mass within the hypopharynx. Symmetric vocal cords. Overall unremarkable larynx. Streak artifact from cartilage calcifications degrades evaluation of the soft tissue structures. Unremarkable esophagus and trachea. Cavernous ICA calcifications. Retropharyngeal course of the bilateral internal carotid arteries. Limited evaluation for stenosis given streak artifact at the bifurcation. Vertebrobasilar calcifications. Intracranial contents and visualized orbits are unremarkable. Paranasal sinuses and mastoid air cells are well aerated. The major salivary glands and the thyroid are normal. There is no lymphadenopathy. Lung apices are clear. Multilevel degenerative changes of the cervical spine. IMPRESSION: Generalized thickening and soft tissue prominence of the posterior soft palate. Correlate with direct visualization. The aerodigestive tract is somewhat obscured by streak artifact from cartilaginous calcifications. Symmetric vocal cords without adjacent mass lesion. Electronically signed by: Rafy Aleman MD 05/24/2017 9:56 PM CARE ASSOCIATE
[2017-05-24 23:24] VITALS: BP 138/65; O2SAT 95
== END 2017-05-24 22:40 | disposition home or self-care (01) ==
LOC: ER 18:01
DX: I11.0 Hypertensive heart disease with heart failure (principal); I50.43 Acute on chronic combined systolic (congestive) and diastolic (congestive) heart failure; J44.1 Chronic obstructive pulmonary disease with (acute) exacerbation; I48.91 Unspecified atrial fibrillation; Z79.899 Other long term (current) drug therapy; Z88.8 Allergy status to other drugs, medicaments and biological substances
CPT/HCPCS: 70491; 71010; 80053; 83880; 85025; 94640; 94760; A4216; J2930; J3490; J7620

== ENCOUNTER 2017-06-02 09:47 | Emergency (ER) | payer MEDICARE ==
[2017-06-02 10:02] VITALS: TEMP 98
--- NOTE | 2017-06-02 10:34 | CT ---
EXAM DESCRIPTION: Head CLINICAL HISTORY: 76 years, Female, fall last night with blood thinners COMPARISON: FINDINGS: Unenhanced images through the brain. This examination was performed according to our departmental dose optimization program, which includes automatic exposure control, adjustment of the MA and/or kV according to the patient size and/or use of iterative reconstruction technique. No intracranial hemorrhage or mass. Mild frontal atrophy. Ventricles within normal limits for age. Some mild microischemic change periventricular white matter. Atherosclerotic calcification present in both vertebral arteries. Some minimal ethmoid sinus mucosal thickening. IMPRESSION: Age-related changes without findings of hemorrhage or mass. No acute abnormality seen Electronically signed by: Hector Cardona MD 06/02/2017 10:33 AM [facility]
--- NOTE | 2017-06-02 10:47 | RAD ---
EXAM DESCRIPTION: Bilateral Ribs CLINICAL HISTORY: 76 years Female, fall lawst night COMPARISON: None. FINDINGS: 3 views of the ribs show no rib lesion or rib fracture. IMPRESSION: Negative Electronically signed by: Nito Singh MD 06/02/2017 10:[address] [facility]
--- NOTE | 2017-06-02 10:48 | RAD ---
EXAM DESCRIPTION: Chest,1 View CLINICAL HISTORY: 76 years Female, fall lawst night COMPARISON: May 24, 2017 TECHNIQUE: AP portable chest. FINDINGS: Lungs are clear. No consolidation. Heart normal size. IMPRESSION: Normal. Electronically signed by: Nito Singh MD 06/02/2017 10:47 AM [facility]
[2017-06-02] MEDS ORDERED: POTASSIUM CHLORIDE ELIXIR 20 MEQ/15 ML UD PO ONE (11:05)
[2017-06-02] MEDS ORDERED: SODIUM CHLORIDE 0.9% 1000ML 1,000 ML IVS ONE (11:37)
[2017-06-02] MEDS ORDERED: HYDROcodone 5MG/APAP 325MG 1 EA TAB PO ONE (11:54)
--- NOTE | 2017-06-02 13:36 | ED.PDOC ---
History of Present Illness - General Chief Complaint: Trauma Stated Complaint: headache Time Seen by Provider: 06/02/17 09:56 Source: patient Exam Limitations: no limitations - History of Present Illness Initial Comments: the patient is a 76-year-old female presenting to the emergency room after having fallen last night after taking her Xanax. The patient was going between her bed in the bathroom when she fell. She thinks she hit the side of her head on the right side on the door frame. No loss of consciousness and no bleeding. She does take a blood thinner. She is also reporting some diffuse chest wall discomfort with movement and with taking a deep breath primarily on the right side. No crepitus. No significant cough. Timing/Duration: unsure Severity: moderate Improving Factors: nothing Worsening Factors: movement Associated Symptoms: headaches Allergies/Adverse Reactions: Allergies Rosuvastatin [From Crestor] Allergy (Severe, Verified 05/24/17 18:11) Rash Erythromycin Allergy (Verified 05/24/17 18:11) Nausea Pentazocine [From Talwin Compound] Allergy (Verified 05/24/17 18:11) Rash Rifampin Allergy (Verified 05/24/17 18:11) Rash Atorvastatin [From Lipitor] Adverse Reaction (Intermediate, Verified 05/24/17 18 :11) Other Causes muscle pain Benzodiazepines Adverse Reaction (Verified 05/24/17 18:11) Other Some benzos make patient "ZONED out for days" Home Medications: Ambulatory Orders Atenolol [Tenormin] 25 mg PO BID #0 11/23/12 Citalopram Hydrobromide 20 mg PO DAILY #0 11/23/12 Omeprazole 40 mg PO BID 09/08/14 Potassium Chloride Tab [K-Dur] 20 meq PO DAILY 09/08/14 Propafenone HCl [Rythmol] 225 mg PO TID 09/08/14 Gabapentin 300 mg PO BEDTIME 09/13/16 diphenhydrAMINE HCL [Benadryl] 100 mg PO BEDTIME 09/13/16 Acetaminophen [Tylenol] 1,000 mg PO Q8HR PRN 03/04/17 Budesonide (Inhalation) [Pulmicort] 0.25 mg IN BID 03/04/17 Edoxaban Tosylate [Savaysa] 60 mg PO BEDTIME 03/04/17 Fenofibrate 145 mg PO DAILY 03/04/17 Furosemide [Lasix] 80 mg PO DAILY 03/04/17 HYDROcodone 10MG/APAP 325MG [[place] 10/325] 1 tab PO BEDTIME 03/04/17 Ipratropium/Albuterol [Duoneb] 3 ml NEB Q4HR 03/04/17 Ipratropium/Albuterol [Duoneb] 3 ml NEB Q4HR PRN 03/04/17 Melatonin 10 mg PO BEDTIME 03/04/17 Theophylline [Theophylline ER] 75 mg PO DAILY 03/04/17 tiZANidine [Zanaflex] 2 mg PO BEDTIME 03/04/17 Sucralfate Tab [Carafate Tab] 1 gm PO ACHS #40 tablet 03/07/17 Fluticasone Furoate-Vilanterol [Breo Ellipta 200-25 Mcg/INH] 1 inh IN BID Umeclidinium [place] [Incruse Ellipta] 62.5 mcg IN DAILY 05/24/17 metOLazone [Zaroxolyn] 5 mg PO DAILY #7 tab 05/24/17 Sulfa/Trimeth 800/160 (Ds) Tab [Bactrim DS Tab] 1 ea PO DAILY #7 tab 06/02/17 Review of Systems - Review of Systems Constitutional: States: malaise EENTM: States: no symptoms reported Respiratory: States: no symptoms reported Cardiology: States: chest pain Gastrointestinal/Abdominal: States: no symptoms reported Genitourinary: States: no symptoms reported Musculoskeletal: States: no symptoms reported Skin: States: no symptoms reported Neurological: States: anxiety, headache Endocrine: States: no symptoms reported All other Systems: No Change from Baseline Past Medical History (General) - Patient Medical History Hx Seizures: No Hx Stroke: No Hx Asthma: No Hx of COPD: Yes Hx Cardiac Disorders: Yes - A-fib Hx Congestive Heart Failure: Yes Hx Pacemaker: No Hx Hypertension: Yes Hx Diabetes: No Hx Gastroesophageal Reflux: No Hx Cancer: No Hx MRSA: No - Vaccination History Hx Tetanus, Diphtheria Vaccination: No Hx Influenza Vaccination: Yes Hx Pneumococcal Vaccination: Yes - Social History Hx Tobacco Use: No Hx Chewing Tobacco Use: No Hx Alcohol Use: No Hx Substance Use: No Hx Substance Use Treatment: No Hx Depression: No Hx Physical Abuse: No Hx Emotional Abuse: No Hx Suspected Abuse: No - Female History Patient : No Family Medical History - Family History Father Family History: No Known Living Status: Hx Cardiac Disease: Yes Mother Family History: No Known Living Status: Physical Exam - Physical Exam General Appearance: Alert, Comfortable, No apparent distress Eye Exam: bilateral normal Ears, Nose, Throat: hearing grossly normal, normal ENT inspection, normal pharynx, other - i see no evidence of any head trauma on exam Neck: non-tender, full range of motion, supple Respiratory: lungs clear, normal breath sounds, no respiratory distress, no accessory muscle use, other - the patient does have diffuse chest wall discomfort palpation but no bruising and no crepitus. It is worse with movement. It is worse with taking a deep breath. 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 She did have a headache and is on a blood thinner so a head CT was performed which showed no evidence of any acute intracranial pathology. Rib series and chest x-ray done secondary to chest wall discomfort shows no evidence of any fracture or pneumothorax. This is likely musculoskeletal strain from the fall itself. The patient does however have some acute renal failure that likely contributed to her propensity for falling. She needs to hold her Lasix and metolazone for the next 2 days. She did receive a liter of IV fluids here. Additionally she does have some hypokalemia and needs to continue her potassium. She was given a bolus dose of potassium here today. She does need to follow up with her primary care doctor next week for reevaluation of her kidney function and potassium. Additionally she may need to decrease potentially sedating medications at night to help reduce the likelihood of recurrent falls. ER warnings were given for any significant worsening. - Results/Orders Results/Orders: Laboratory Tests 06/02/17 06/02/17 06/02/17 10:45 10:45 10:45 WBC 10.6 RBC 4.59 Hgb 12.8 Hct 38.3 MCV 83.5 MCH 27.9 MCHC 33.4 RDW 16.2 H Plt Count 315 MPV 8.1 Absolute Neuts (auto) 8.10 H Absolute Lymphs (auto) 1.30 Absolute Monos (auto) 0.90 H Absolute Eos (auto) 0.20 Absolute Basos (auto) 0.20 H Neutrophils % 76.5 Lymphocytes % 11.9 L Monocytes % 8.2 Eosinophils % 2.0 Basophils % 1.4 PT 18.2 H INR 1.620 PTT (SP) 33.8 Sodium 134 L Potassium 3.1 L Chloride 89 L Carbon Dioxide 31 Anion Gap 17.1 BUN 67 H Creatinine 3.20 H BUN/Creatinine Ratio 20.9 H Random Glucose 142 H Serum Osmolality 290.1 Calcium 9.0 Total Bilirubin 0.4 AST 15 ALT 10 Alkaline Phosphatase 47 Serum Total Protein 7.7 Albumin 4.0 Globulin 3.7 H Albumin/Globulin Ratio 1.1 Urine Color Urine Appearance Urine pH Ur Specific [place] Urine Protein Urine Glucose (UA) Urine Ketones Urine Blood Urine Nitrite Urine Bilirubin Urine Urobilinogen Ur Leukocyte Esterase Urine RBC Urine WBC Ur Epithelial Cells Urine Bacteria 06/02/17 12:40 WBC RBC Hgb Hct MCV MCH MCHC RDW Plt Count MPV Absolute Neuts (auto) Absolute Lymphs (auto) Absolute Monos (auto) Absolute Eos (auto) Absolute Basos (auto) Neutrophils % Lymphocytes % Monocytes % Eosinophils % Basophils % PT INR PTT (SP) Sodium Potassium Chloride Carbon Dioxide Anion Gap BUN Creatinine BUN/Creatinine Ratio Random Glucose Serum Osmolality Calcium Total Bilirubin AST ALT Alkaline Phosphatase Serum Total Protein Albumin Globulin Albumin/Globulin Ratio Urine Color Yellow Urine Appearance Clear Urine pH 6.0 Ur Specific [place] 1.010 Urine Protein Negative Urine Glucose (UA) Negative Urine Ketones Negative Urine Blood Negative Urine Nitrite Negative Urine Bilirubin Negative Urine Urobilinogen 0.2 Ur Leukocyte Esterase Small H Urine RBC 0 Urine WBC 10-20 H Ur Epithelial Cells 0 Urine Bacteria 1+ chest x-ray and rib series show no evidence of any pneumothorax or rib fractures. Head CT is negative for any acute intracranial pathology. Departure - Departure Clinical Impression: Hypokalemia, Anterior chest wall pain, Cystitis Acute renal failure Qualifiers: Acute renal failure type: unspecified Qualified Code(s): N17.9 - Acute kidney failure, unspecified Fall in home Qualifiers: Encounter type: initial encounter Qualified Code(s): W19.XXXA - Unspecified fall, initial encounter; Y92.099 - Unspecified place in other non-institutional residence as the place of occurrence of the external cause Disposition: Discharge to Home or Self Care Condition: Fair Departure Forms: ED Discharge - Pt. Copy, Patient Portal Self Enrollment Diet: regular diet Activity: increase activity as tolerated Referrals: JACKIE DUMAS [Primary Care Provider] - 1-5 Days Prescriptions: Sulfa/Trimeth 800/160 (Ds) Tab [Bactrim DS Tab] 1 ea PO DAILY #7 tab Home Medications: Ambulatory Orders Atenolol [Tenormin] 25 mg PO BID #0 11/23/12 Citalopram Hydrobromide 20 mg PO DAILY #0 11/23/12 Omeprazole 40 mg PO BID 09/08/14 Potassium Chloride Tab [K-Dur] 20 meq PO DAILY 09/08/14 Propafenone HCl [Rythmol] 225 mg PO TID 09/08/14 Gabapentin 300 mg PO BEDTIME 09/13/16 diphenhydrAMINE HCL [Benadryl] 100 mg PO BEDTIME 09/13/16 Acetaminophen [Tylenol] 1,000 mg PO Q8HR PRN 03/04/17 Budesonide (Inhalation) [Pulmicort] 0.25 mg IN BID 03/04/17 Edoxaban Tosylate [Savaysa] 60 mg PO BEDTIME 03/04/17 Fenofibrate 145 mg PO DAILY 03/04/17 Furosemide [Lasix] 80 mg PO DAILY 03/04/17 HYDROcodone 10MG/APAP 325MG [[place] 10/325] 1 tab PO BEDTIME 03/04/17 Ipratropium/Albuterol [Duoneb] 3 ml NEB Q4HR 03/04/17 Ipratropium/Albuterol [Duoneb] 3 ml NEB Q4HR PRN 03/04/17 Melatonin 10 mg PO BEDTIME 03/04/17 Theophylline [Theophylline ER] 75 mg PO DAILY 03/04/17 tiZANidine [Zanaflex] 2 mg PO BEDTIME 03/04/17 Sucralfate Tab [Carafate Tab] 1 gm PO ACHS #40 tablet 03/07/17 Fluticasone Furoate-Vilanterol [Breo Ellipta 200-25 Mcg/INH] 1 inh IN BID Umeclidinium [place] [Incruse Ellipta] 62.5 mcg IN DAILY 05/24/17 metOLazone [Zaroxolyn] 5 mg PO DAILY #7 tab 05/24/17 Sulfa/Trimeth 800/160 (Ds) Tab [Bactrim DS Tab] 1 ea PO DAILY #7 tab 06/02/17 Additional Instructions: the patient's a 76-year-old female presenting to the emergency room after a fall last night. She did have a headache and is on a blood thinner so a head CT was performed which showed no evidence of any acute intracranial pathology. Rib series and chest x-ray done secondary to chest wall discomfort shows no evidence of any fracture or pneumothorax. This is likely musculoskeletal strain from the fall itself. The patient does however have some acute renal failure that likely contributed to her propensity for falling. She needs to hold her Lasix and metolazone for the next 2 days. She did receive a liter of IV fluids here. Additionally she does have some hypokalemia and needs to continue her potassium. She was given a bolus dose of potassium here today. She does need to follow up with her primary care doctor next week for reevaluation of her kidney function and potassium. Additionally she may need to decrease potentially sedating medications at night to help reduce the likelihood of recurrent falls. ER warnings were given for any significant worsening. the patient does have a small urinary tract infection and will be placed on Bactrim daily for 1 week based on previous sensitivities.
[2017-06-02] MEDS ORDERED: SULFA/TRIMETH 800/160 (DS) TAB 1 EA TAB PO ONE (13:55)
[2017-06-02 14:06] VITALS: BP 83/53; O2SAT 94
== END 2017-06-02 14:06 | disposition home or self-care (01) ==
LOC: ER 09:47
DX: R07.89 Other chest pain (principal); N17.9 Acute kidney failure, unspecified; E87.6 Hypokalemia; N30.90 Cystitis, unspecified without hematuria; R51 Headache; I48.91 Unspecified atrial fibrillation; I11.0 Hypertensive heart disease with heart failure; I50.9 Heart failure, unspecified; Z79.899 Other long term (current) drug therapy
CPT/HCPCS: 36415; 70450; 71010; 71111; 80053; 81001; 85025; 85610; 85730; 87086; J7030

== ENCOUNTER → 2017-08-31 | Outpatient (CLI) | payer MEDICARE | LOC: LAB.O 11:00 | PROVIDERS: ATTEND Internal Medicine Nephrology | DX: N17.0 Acute kidney failure with tubular necrosis (principal) ==

== ENCOUNTER → 2017-11-04 | Outpatient (CLI) | payer MEDICARE | LOC: LAB.O 15:24 | PROVIDERS: ATTEND Internal Medicine Nephrology | DX: N17.0 Acute kidney failure with tubular necrosis (principal) ==

== ENCOUNTER 2017-12-03 07:39 | Emergency (ER) | payer MEDICARE ==
--- NOTE | 2017-12-03 07:57 | ED.PDOC ---
History of Present Illness - General Chief Complaint: General Stated Complaint: repeated falls Time Seen by Provider: 12/03/17 07:56 Source: patient Exam Limitations: no limitations - History of Present Illness Initial Comments: Nicki Ansari 77 y/o female brought to ER with feeling of dizziness and feels like about to fall for the last one week.On arrival at ER noted blood pressure sitting-systolic 70/41 no chest pains,no nausea/vomiting no blurry vision,no dysarthria.Stated had been falling a lot recently. Timing/Duration: other - see hpi Severity: moderate Improving Factors: rest Worsening Factors: movement Associated Symptoms: other - see hpi Allergies/Adverse Reactions: Allergies Rosuvastatin [From Crestor] Allergy (Severe, Verified 05/24/17 18:11) Rash Erythromycin Allergy (Verified 05/24/17 18:11) Nausea Pentazocine [From [place]win Compound] Allergy (Verified 05/24/17 18:11) Rash Rifampin Allergy (Verified 05/24/17 18:11) Rash Atorvastatin [From Lipitor] Adverse Reaction (Intermediate, Verified 05/24/17 18 :11) Other Causes muscle pain Benzodiazepines Adverse Reaction (Verified 05/24/17 18:11) Other Some benzos make patient "ZONED out for days" Home Medications: Ambulatory Orders Atenolol [Tenormin] 25 mg PO BID #0 11/23/12 Citalopram Hydrobromide 20 mg PO DAILY #0 11/23/12 Omeprazole 40 mg PO BID 09/08/14 Potassium Chloride Tab [K-Dur] 20 meq PO DAILY 09/08/14 Propafenone HCl [Rythmol] 225 mg PO TID 09/08/14 Gabapentin 300 mg PO BEDTIME 09/13/16 diphenhydrAMINE HCL [Benadryl] 100 mg PO BEDTIME 09/13/16 Acetaminophen [Tylenol] 1,000 mg PO Q8HR PRN 03/04/17 Budesonide (Inhalation) [Pulmicort] 0.25 mg IN BID 03/04/17 Edoxaban Tosylate [Savaysa] 60 mg PO BEDTIME 03/04/17 Fenofibrate 145 mg PO DAILY 03/04/17 Furosemide [Lasix] 80 mg PO DAILY 03/04/17 HYDROcodone 10MG/APAP 325MG [[place] 10/325] 1 tab PO BEDTIME 03/04/17 Ipratropium/Albuterol [Duoneb] 3 ml NEB Q4HR 03/04/17 Ipratropium/Albuterol [Duoneb] 3 ml NEB Q4HR PRN 03/04/17 Melatonin 10 mg PO BEDTIME 03/04/17 Theophylline [Theophylline ER] 75 mg PO DAILY 03/04/17 tiZANidine [Zanaflex] 2 mg PO BEDTIME 03/04/17 Sucralfate Tab [Carafate Tab] 1 gm PO ACHS #40 tablet 03/07/17 Fluticasone Furoate-Vilanterol [Breo Ellipta 200-25 Mcg/INH] 1 inh IN BID Umeclidinium [place] [Incruse Ellipta] 62.5 mcg IN DAILY 05/24/17 metOLazone [Zaroxolyn] 5 mg PO DAILY #7 tab 05/24/17 Sulfa/Trimeth 800/160 (Ds) Tab [Bactrim DS Tab] 1 ea PO DAILY #7 tab 06/02/17 Review of Systems - Review of Systems Constitutional: States: no symptoms reported EENTM: States: no symptoms reported Respiratory: States: no symptoms reported Cardiology: States: no symptoms reported Gastrointestinal/Abdominal: States: no symptoms reported Genitourinary: States: no symptoms reported Musculoskeletal: States: no symptoms reported Skin: States: no symptoms reported Neurological: States: other - dizziness Past Medical History (General) - Patient Medical History Hx Seizures: No Hx Stroke: No Hx Asthma: No Hx of COPD: Yes Hx Cardiac Disorders: Yes - a fib Hx Congestive Heart Failure: Yes Hx Pacemaker: No Hx Hypertension: Yes Hx Diabetes: No Hx Gastroesophageal Reflux: Yes - microcytic colitis, hitatal hernia, GI bleed Hx Cancer: No Hx MRSA: No Surgical History: other - hysterectomy,graft rt/lt femoral artery.colonoscopy - Vaccination History Hx Tetanus, Diphtheria Vaccination: No Hx Influenza Vaccination: Yes Hx Pneumococcal Vaccination: Yes - Social History Hx Tobacco Use: Yes Hx Chewing Tobacco Use: No Hx Alcohol Use: No Hx Substance Use: No Hx Substance Use Treatment: No Hx Depression: No Hx Physical Abuse: No Hx Emotional Abuse: No Hx Suspected Abuse: No - Female History Patient : No Family Medical History - Family History Father Family History: No Known Living Status: Hx Cardiac Disease: Yes Mother Family History: No Known Living Status: Physical Exam - Physical Exam General Appearance: Alert, Comfortable, No apparent distress, Other - speech fluent Eye Exam: bilateral normal Ears, Nose, Throat: hearing grossly normal, normal ENT inspection Neck: non-tender, supple Respiratory: chest non-tender, lungs clear, normal breath sounds, no respiratory distress Cardiovascular/Chest: normal peripheral pulses, irregularly irregular Peripheral Pulses: radial,right: 1+, radial,left: 1+ Gastrointestinal/Abdominal: normal bowel sounds, non tender, soft, no organomegaly Rectal Exam: normal rectal tone, heme positive stool Back Exam: normal inspection, no CVA tenderness, no vertebral tenderness Extremity: non-tender, no pedal edema, no calf tenderness Neurologic: alert, oriented x 3 Skin Exam: normal color, warm/dry Progress - Progress Progress: 12/03/17 08:12 Vital Signs - 8 hr 12/03/17 12/03/17 12/03/17 07:45 08:03 08:04 Temperature 97.8 F Pulse Rate [ 71 71 84 left brachial] Respiratory 16 16 16 Rate Blood Pressure 91/66 90/54 79/49 [left brachial] O2 Sat by Pulse 94 L 94 L 94 L Oximetry - Results/Orders Results/Orders: 12/03/17 07:45 EKG STAT 12/03/17 08:14 IV Care:Saline Lock per Protoc QSHIFT EKG Assessment DAILY EKG Assessment ONCE 12/03/17 09:07 Abdoment/Pelvis w/o Contrast [CT] Stat 12/03/17 09:15 URINALYSIS Stat Laboratory Results - last 24 hr 12/03/17 12/03/17 08:24 08:24 WBC 11.2 H RBC 4.38 Hgb 10.9 L Hct 34.0 L MCV 77.6 L MCH 24.8 L MCHC 32.1 L RDW 17.3 H Plt Count 360 MPV 8.2 Absolute Neuts (auto) 8.80 H Absolute Lymphs (auto) 1.30 Absolute Monos (auto) 0.80 Absolute Eos (auto) 0.20 Absolute Basos (auto) 0.10 Neutrophils % 78.5 H Lymphocytes % 11.5 L Monocytes % 6.9 Eosinophils % 1.9 Basophils % 1.2 PT 10.7 INR 1.07 PTT (SP) 22.2 Sodium 135 Potassium 2.7 L Chloride 88 L Carbon Dioxide 32 H Anion Gap 17.7 BUN 73 H Creatinine 3.17 H BUN/Creatinine Ratio 23.0 H Random Glucose 139 H Serum Osmolality 293.9 Lactic Acid 2.0 Calcium 10.0 Magnesium 2.0 Total Bilirubin 0.5 Direct Bilirubin < 0.1 Indirect Bilirubin 0.4 AST 15 ALT 12 Alkaline Phosphatase 64 Creatine Kinase 33 CK-MB (CK-2) 1.2 CK-MB (CK-2) % Not Reportable Troponin I < 0.02 Serum Total Protein 7.7 Albumin 4.1 Theophylline 5.4 L CREATININE CLEARNCE-15 ml/min(calculated) - EKG/XRAY/CT EKG: Atrial, Fibrillation, nonspecific ST T wave Chg Comments: HR-85 XRAY: chest - no acute disease CT: abd/p-no acute abnormalities CT Ordered: Yes - head-no infarct/hemorrhage Departure - Departure Clinical Impression: CKD (chronic kidney disease) stage 4, GFR 15-29 ml/min, History of atrial fibrillation, Guaiac positive stools, Hypokalemia Hypotension, unspecified Qualifiers: Hypotension type: unspecified hypotension type Qualified Code(s): I95.9 - Hypotension, unspecified Time of Disposition: 12:05 Disposition: Transfer to Hospital Condition: Fair Departure Forms: ED Discharge - Pt. Copy, Patient Portal Self Enrollment Referrals: JACKIE DUMAS [Primary Care Provider] - 1-2 Weeks Home Medications: Ambulatory Orders Atenolol [Tenormin] 25 mg PO BID #0 11/23/12 Citalopram Hydrobromide 20 mg PO DAILY #0 11/23/12 Omeprazole 40 mg PO BID 09/08/14 Potassium Chloride Tab [K-Dur] 20 meq PO DAILY 09/08/14 Propafenone HCl [Rythmol] 225 mg PO TID 09/08/14 Gabapentin 300 mg PO BEDTIME 09/13/16 diphenhydrAMINE HCL [Benadryl] 100 mg PO BEDTIME 09/13/16 Acetaminophen [Tylenol] 1,000 mg PO Q8HR PRN 03/04/17 Budesonide (Inhalation) [Pulmicort] 0.25 mg IN BID 03/04/17 Edoxaban Tosylate [Savaysa] 60 mg PO BEDTIME 03/04/17 Fenofibrate 145 mg PO DAILY 03/04/17 Furosemide [Lasix] 80 mg PO DAILY 03/04/17 HYDROcodone 10MG/APAP 325MG [[place] 10/325] 1 tab PO BEDTIME 03/04/17 Ipratropium/Albuterol [Duoneb] 3 ml NEB Q4HR 03/04/17 Ipratropium/Albuterol [Duoneb] 3 ml NEB Q4HR PRN 03/04/17 Melatonin 10 mg PO BEDTIME 03/04/17 Theophylline [Theophylline ER] 75 mg PO DAILY 03/04/17 tiZANidine [Zanaflex] 2 mg PO BEDTIME 03/04/17 Sucralfate Tab [Carafate Tab] 1 gm PO ACHS #40 tablet 03/07/17 Fluticasone Furoate-Vilanterol [Breo Ellipta 200-25 Mcg/INH] 1 inh IN BID Umeclidinium [place] [Incruse Ellipta] 62.5 mcg IN DAILY 05/24/17 metOLazone [Zaroxolyn] 5 mg PO DAILY #7 tab 05/24/17 Sulfa/Trimeth 800/160 (Ds) Tab [Bactrim DS Tab] 1 ea PO DAILY #7 tab 06/02/17 Transfer to Outside Facility - Transfer Information Accepting Provider:: D/W Dr. Meka Cooley Accepting Facility: [facility] Reason for Transfer: required specialist not available
[2017-12-03] MEDS ORDERED: SODIUM CHLORIDE 0.9% 500ML 500 ML IVS ONE ×2 (08:14→09:49)
[2017-12-03] MEDS ORDERED: ACETAMINOPHEN 500 MG TAB ONE (08:53)
[2017-12-03] MEDS ORDERED: POTASSIUM CHLORIDE 20 MEQ TAB PO ONE (09:05)
--- NOTE | 2017-12-03 09:25 | CT ---
PROCEDURE: Head HISTORY: frequent falls Indication: Same as above Comparison: None Technique: CT of the head was done without intravenous contrast was done in the orthogonal planes. This exam was performed according to our departmental dose-optimization program, which includes automated exposure control, adjustment of the mA and/or KV according to the patient's size and/or use of iterative reconstruction technique. FINDINGS: There is no intracranial hemorrhage, midline shift mass effect or acute focal infarct. There is prominence of the sylvian fissures and the cortical sulci reflecting age related volume loss. There is minimal periventricular and deep white matter low attenuation, most likely related to small vessel white matter ischemic disease. Intracranial vascular calcifications are seen. If clinical concern exists regarding an acute ischemic/vascular pathology being responsible for patient's symptomatology, an MRI of the brain is more sensitive than the current study, in ruling out such a possibility. There is good maynard/white matter differentiation. The ventricular system is normal. The mastoid air cells are unremarkable . The paranasal sinuses show changes of mild chronic sinusitis . There is no visualization of acute fractures involving the calvarium or the skull base. IMPRESSION: There is no acute intracranial abnormality. Age related and chronic involutional changes are seen. Electronically signed by: Donovan Angel MD 12/03/2017 9:24 AM CDT Workstation: [id number]
--- NOTE | 2017-12-03 09:25 | RAD ---
PROCEDURE: XR CHEST 1 VIEW HISTORY: falls COMPARISON: 06/02/2017 TECHNIQUE: Single projection of the chest was done. FINDINGS: There is no gross evidence of acute thoracic bony trauma . There are no discrete airspace infiltrates, pneumothoraces or pleural effusions. The pulmonary vascularity is normal. The cardiomediastinal silhouette is unremarkable for patient's age and sex. IMPRESSION: There is no acute pleural-parenchymal process seen in the imaged lung patterson. Location of Interpretation: [facility] Electronically signed by: Donovan Angel MD 12/03/2017 9:24 AM CDT Workstation: [id number]
[2017-12-03] MEDS ORDERED: HYDROcodone 7.5MG/APAP 325MG 1 EA TAB PO ONE (09:27)
[2017-12-03] MEDS ORDERED: ACETAMINOPHEN 500 MG TAB PO ONE (09:50)
--- NOTE | 2017-12-03 10:01 | CT ---
PROCEDURE: Abdoment/Pelvis w/o Contrast HISTORY: renal failure Indication: Same as above Comparison: None Technique: CT of the abdomen and pelvis was done without intravenous contrast. Images were obtained from the lung base to the level of the pubic symphysis in axial plane, followed by orthogonal sagittal and coronal reconstruction. Oral contrast was not given for the study. This exam was performed according to our departmental dose-optimization program, which includes automated exposure control, adjustment of the mA and/or KV according to the patient's size and/or use of iterative reconstruction technique. FINDINGS: Images through the lung bases do not show any focal infiltrates or pleural effusions. The liver, gallbladder, pancreas, spleen and the bilateral adrenal glands appear unremarkable, given the limitation of lack of intravenous contrast. The bilateral kidneys do not show any evidence of hydronephrosis or nephrolithiasis. The bilateral ureters and the bilateral periureteral soft tissues and fat planes are unremarkable. The urinary bladder is decompressed The small bowel appears unremarkable, without any evidence of small bowel obstruction or bowel wall thickening. There is no CT evidence of acute appendicitis, pericecal inflammatory change or ileocecal mesenteric adenitis. The ileocecal junction appears unremarkable. There is no CT evidence of acute colonic diverticulitis or colitis or large bowel obstruction. There is no pathological lymphadenopathy in the retroperitoneum or in the pelvic region. There is no evidence of free fluid or free air in the abdomen or the pelvic region. There is no clinically significant abdominal aortic aneurysm. Significant atherosclerotic vascular wall calcifications in the abdomen and pelvis are noted There is a small fat-containing periumbilical hernia defect. There is presence of a vaginal pessary The visualized lumbar spine shows multilevel degenerative change and grade 1 anterolisthesis of L4 at L5 at S1. There is levoscoliotic curvature of the lumbar spine The paravertebral soft tissues are unremarkable. The remainder of the pelvic structures are unremarkable. IMPRESSION: Unremarkable bilateral kidneys and bilateral ureters. Decompressed urinary bladder. There are no acute findings in the abdomen or the pelvis Electronically signed by: Donovan Angel MD 12/03/2017 10:00 AM CDT Workstation: [id number]
[2017-12-03] MEDS ORDERED: LIDOCAINE 2 % GEL 5 ML TUBE TOP ONE ×2 (10:42→10:43)
[2017-12-03] MEDS ORDERED: PANTOPRAZOLE INJECTION 80 MG in SODIUM CHLORIDE 0.9% 100ML 80 ML IVPB ONE (12:38)
[2017-12-03] MEDS ORDERED: PANTOPRAZOLE SODIUM IV 40 MG VIAL ONE (12:42)
[2017-12-03] MEDS ORDERED: SODIUM CHLORIDE 0.9% 100ML 100 ML IVPB ONE (12:42)
[2017-12-03 12:55] VITALS: O2SAT 96
[2017-12-03 13:39] VITALS: BP 91/62; TEMP 98.4
== END 2017-12-03 13:39 | disposition short-term general hospital (02) ==
LOC: ER 07:39
DX: N18.4 Chronic kidney disease, stage 4 (severe) (principal); E87.6 Hypokalemia; R19.5 Other fecal abnormalities; I48.91 Unspecified atrial fibrillation; I95.9 Hypotension, unspecified; I13.0 Hypertensive heart and chronic kidney disease with heart failure and stage 1 through stage 4 chronic kidney disease, or unspecified chronic kidney disease; I50.9 Heart failure, unspecified; J44.9 Chronic obstructive pulmonary disease, unspecified; K21.9 Gastro-esophageal reflux disease without esophagitis; Z79.899 Other long term (current) drug therapy; Z88.8 Allergy status to other drugs, medicaments and biological substances; Z88.1 Allergy status to other antibiotic agents; Z91.81 History of falling; Z87.891 Personal history of nicotine dependence
CPT/HCPCS: 36415; 70450; 71045; 74176; 80048; 80076; 80198; 81001; 82270; 82550; 82553; 83605; 84484; 85025; 85610; 85730; 93005; J7040; J7050

== ENCOUNTER 2018-09-25 08:03 | Emergency (ER) | payer MEDICARE ==
--- NOTE | 2018-09-25 08:31 | ED.PDOC ---
History of Present Illness - General Chief Complaint: Trauma Stated Complaint: fall Time Seen by Provider: 09/25/18 08:15 Source: patient - History of Present Illness Initial Comments: Pt fell after getting out of bed this am. She has a vague memory of the fall. Has headache and nausea with neck pain Timing/Duration: unsure Severity: moderate Improving Factors: nothing Worsening Factors: nothing Associated Symptoms: nausea/vomiting Allergies/Adverse Reactions: Allergies Rosuvastatin [From Crestor] Allergy (Severe, Verified 05/24/17 18:11) Rash Erythromycin Allergy (Verified 05/24/17 18:11) Nausea Pentazocine [From Talwin Compound] Allergy (Verified 05/24/17 18:11) Rash Rifampin Allergy (Verified 05/24/17 18:11) Rash Atorvastatin [From Lipitor] Adverse Reaction (Intermediate, Verified 05/24/17 18:11) Other Causes muscle pain Benzodiazepines Adverse Reaction (Verified 05/24/17 18:11) Other Some benzos make patient "ZONED out for days" Home Medications: Ambulatory Orders RX: Atenolol [Tenormin] 25 mg PO BID #0 11/23/12 RX: Citalopram Hydrobromide 20 mg PO DAILY #0 11/23/12 RX: Potassium Chloride Tab [K-Dur] 20 meq PO DAILY 09/08/14 RX: Propafenone HCl [Rythmol] 150 mg PO TID 09/08/14 RX: Gabapentin 300 mg PO BEDTIME 09/13/16 RX: Budesonide (Inhalation) [Pulmicort] 0.25 mg IN BID 03/04/17 RX: Furosemide [Lasix] 40 mg PO QAM 03/04/17 RX: HYDROcodone 10MG/APAP 325MG [Lowman 10/325] 1 tab PO BEDTIME 03/04/17 RX: Ipratropium/Albuterol [Duoneb] 3 ml NEB Q4HR PRN 03/04/17 RX: Melatonin 10 mg PO BEDTIME 03/04/17 RX: tiZANidine [Zanaflex] 2 mg PO BEDTIME 03/04/17 Fluticasone Furoate-Vilanterol [Breo Ellipta 100-25 Mcg/INH] 09/25/18 Furosemide Tab [Lasix Tab] 20 mg PO BEDTIME 09/25/18 Glycopyrrolate (Inhalation) [Seebri Neohaler] 15.6 mcg IN DAILY 09/25/18 RX: busPIRone HCL [Buspar] 10 mg PO BID 09/25/18 Sulfa/Trimeth 800/160 (Ds) Tab [Bactrim DS] 1 tablet PO BID #20 tablet 09/25/18 Vilazodone HCl [Viibryd] 10 mg PO BEDTIME 09/25/18 Xarelto 09/25/18 metOLazone [Zaroxolyn] 2.5 mg PO DAILY 09/25/18 Review of Systems - Review of Systems Constitutional: States: no symptoms reported EENTM: States: other - knot on back of head. Denies: double vision Respiratory: States: no symptoms reported Cardiology: Denies: chest pain, edema Gastrointestinal/Abdominal: States: nausea. Denies: vomiting Genitourinary: States: no symptoms reported Musculoskeletal: States: joint pain - R hip Skin: States: no symptoms reported Neurological: States: headache. Denies: numbness, paresthesia, weakness Endocrine: States: no symptoms reported Hematologic/Lymphatic: States: no symptoms reported Past Medical History (General) - Patient Medical History Hx Seizures: No Hx Stroke: No Hx Asthma: No Hx of COPD: Yes Hx Cardiac Disorders: Yes - a fib Hx Congestive Heart Failure: Yes Hx Pacemaker: No Hx Hypertension: Yes Hx Diabetes: No Hx Gastroesophageal Reflux: Yes - microcytic colitis, hitatal hernia, GI bleed Hx Cancer: No Hx MRSA: No Surgical History: Hysterectomy, other - Vaccination History Hx Tetanus, Diphtheria Vaccination: No Hx Influenza Vaccination: Yes Hx Pneumococcal Vaccination: Yes - Social History Hx Tobacco Use: Yes Hx Chewing Tobacco Use: No Hx Alcohol Use: No Hx Substance Use: No Hx Substance Use Treatment: No Hx Depression: No Hx Physical Abuse: No Hx Emotional Abuse: No Hx Suspected Abuse: No - Female History Patient : No Family Medical History - Family History Father Family History: No Known Living Status: Hx Cardiac Disease: Yes Mother Family History: No Known Living Status: Physical Exam - Physical Exam General Appearance: Alert, Comfortable Eye Exam: bilateral normal Ears, Nose, Throat: hearing grossly normal, other - hematoma to R occipital Neck: limited range of motion, tender midline Respiratory: chest non-tender, lungs clear, normal breath sounds Cardiovascular/Chest: normal peripheral pulses, regular rate, rhythm, no edema Gastrointestinal/Abdominal: normal bowel sounds, non tender, soft Back Exam: normal inspection, no CVA tenderness, no vertebral tenderness Extremity: normal range of motion, non-tender, normal inspection, no pedal edema 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 Copy, Patient Portal Self Enrollment Instructions: DI for Trauma Referrals: JACKIE DUMAS [Primary Care Provider] - 1-2 Weeks Prescriptions: Sulfa/Trimeth 800/160 (Ds) Tab [Bactrim DS] 1 tablet PO BID #20 tablet Home Medications: Ambulatory Orders RX: Atenolol [Tenormin] 25 mg PO BID #0 11/23/12 RX: Citalopram Hydrobromide 20 mg PO DAILY #0 11/23/12 RX: Potassium Chloride Tab [K-Dur] 20 meq PO DAILY 09/08/14 RX: Propafenone HCl [Rythmol] 150 mg PO TID 09/08/14 RX: Gabapentin 300 mg PO BEDTIME 09/13/16 RX: Budesonide (Inhalation) [Pulmicort] 0.25 mg IN BID 03/04/17 RX: Furosemide [Lasix] 40 mg PO QAM 03/04/17 RX: HYDROcodone 10MG/APAP 325MG [Lowman 10/325] 1 tab PO BEDTIME 03/04/17 RX: Ipratropium/Albuterol [Duoneb] 3 ml NEB Q4HR PRN 03/04/17 RX: Melatonin 10 mg PO BEDTIME 03/04/17 RX: tiZANidine [Zanaflex] 2 mg PO BEDTIME 03/04/17 Fluticasone Furoate-Vilanterol [Breo Ellipta 100-25 Mcg/INH] 09/25/18 Furosemide Tab [Lasix Tab] 20 mg PO BEDTIME 09/25/18 Glycopyrrolate (Inhalation) [Seebri Neohaler] 15.6 mcg IN DAILY 09/25/18 RX: busPIRone HCL [Buspar] 10 mg PO BID 09/25/18 Sulfa/Trimeth 800/160 (Ds) Tab [Bactrim DS] 1 tablet PO BID #20 tablet 09/25/18 Vilazodone HCl [Viibryd] 10 mg PO BEDTIME 09/25/18 Xarelto 09/25/18 metOLazone [Zaroxolyn] 2.5 mg PO DAILY 09/25/18
--- NOTE | 2018-09-25 09:26 | RAD ---
EXAM DESCRIPTION: Pelvis CLINICAL HISTORY: R hip pain post fall COMPARISON: None. TECHNIQUE: AP pelvis FINDINGS: Bilateral iliac artery stents are observed. The pelvis is intact. No fracturing is detected. The proximal femurs are also unremarkable. No pathologic calcifications are observed. IMPRESSION: No fracturing is detected. Electronically signed by: Catracho Saravia MD 09/25/2018 9:23 AM CDT
--- NOTE | 2018-09-25 09:29 | CT ---
EXAM DESCRIPTION: Head CLINICAL HISTORY: trauma COMPARISON: 12/03/2017 TECHNIQUE: Multiple axial images of the head without contrast. Multiplanar reformatted images. This exam was performed according to our departmental dose-optimization program, which includes automated exposure control, adjustment of the mA and/or kV according to patient size and/or use of iterative reconstruction technique. FINDINGS: There is no CT evidence of intracranial hemorrhage, mass effect, or large territory infarction. Mild generalized volume loss. Mild patchy supratentorial white matter hypodensities. There are no abnormal extra-axial fluid collections. Calcific plaque in the visualized arteries. There is no acute calvarial defect. Mild mucosal thickening in the sphenoid sinuses with frothy debris. The mastoid air cells are clear. IMPRESSION: 1. No CT evidence of an acute intracranial abnormality. If there is concern for an acute or subacute infarct, consider follow-up MRI. 2. Mild senescent changes. 3. Frothy debris in the sphenoid sinuses, likely inflammatory. Electronically signed by: Lenard Eckert MD 09/25/2018 9:26 AM CDT
--- NOTE | 2018-09-25 09:34 | CT ---
EXAM DESCRIPTION: Cervical Spine CLINICAL HISTORY: trauma COMPARISON: None Available. TECHNIQUE: Multiple axial images of the cervical spine without contrast. Multiplanar reformatted images. This exam was performed according to our departmental dose-optimization program, which includes automated exposure control, adjustment of the mA and/or kV according to patient size and/or use of iterative reconstruction technique. FINDINGS: Straightening of the normal cervical lordosis, which may be seen with positioning or muscle spasm. There is no acute fracture or destructive osseous lesion. Diffuse multilevel spondylitic changes with moderate to severe disc narrowing from C4-C5 through C6-C7. Advanced hypertrophic facet degenerative changes, uncovertebral spurring, and disc osteophyte complexes with moderate to severe bilateral neural foraminal stenoses from C4-C5 through C6-C7. No CT evidence for high-grade spinal canal stenosis. Severe atherosclerosis in the great vessels of the neck. The visualized lung apices are clear. IMPRESSION: 1. No CT evidence of an acute osseous abnormality in the cervical spine 2. Advanced multilevel spondylitic changes. 3. Atherosclerosis. Electronically signed by: Lenard Eckert MD 09/25/2018 9:30 AM CDT
[2018-09-25] MEDS ORDERED: cefTRIAXone SODIUM 1 GM in SODIUM CHL 0.9% 50ML MIN-BAG+ 50 ML IVPB ONE (09:44)
[2018-09-25] MEDS ORDERED: cefTRIAXone SODIUM 1 GM VIAL ONE (09:55)
[2018-09-25] MEDS ORDERED: SODIUM CHL 0.9% 50ML MIN-BAG+ 50 ML IVPB ONE (09:55)
[2018-09-25] MEDS ORDERED: ACETAMINOPHEN 325 MG TAB PO ONE (10:06)
[2018-09-25 11:07] VITALS: O2SAT 95
[2018-09-25 11:26] VITALS: BP 107/67; TEMP 97.7
== END 2018-09-25 11:24 | disposition home or self-care (01) ==
LOC: ER 08:03
DX: S00.03XA Contusion of scalp, initial encounter (principal); N30.00 Acute cystitis without hematuria; M54.2 Cervicalgia; J44.9 Chronic obstructive pulmonary disease, unspecified; I48.91 Unspecified atrial fibrillation; I50.9 Heart failure, unspecified; I11.0 Hypertensive heart disease with heart failure; K21.9 Gastro-esophageal reflux disease without esophagitis; Z87.891 Personal history of nicotine dependence; Z79.01 Long term (current) use of anticoagulants; Z79.899 Other long term (current) drug therapy; Z88.1 Allergy status to other antibiotic agents; Z88.8 Allergy status to other drugs, medicaments and biological substances; W06.XXXA Fall from bed, initial encounter; Y92.9 Unspecified place or not applicable
CPT/HCPCS: 36415; 70450; 72125; 72170; 80053; 81001; 85025; 85610; 85730; 87077; 87086; 87186; J0696; J7050

== ENCOUNTER → 2018-11-22 | Outpatient (CLI) | payer MEDICARE | LOC: LAB.O 11:05 | PROVIDERS: ATTEND Internal Medicine Gastroenterology | DX: R10.13 Epigastric pain (principal) ==

== ENCOUNTER → 2018-11-30 | Outpatient (CLI) | payer MEDICARE ==
--- NOTE | 2018-11-30 13:06 | US ---
EXAM DESCRIPTION: Abdomen,Complete: Ultrasound. CLINICAL HISTORY: EPIGASTRIC PAIN COMPARISON: CT abdomen 12/03/2017. TECHNIQUE: Transabdominal scannin-dimensional and Doppler modes. FINDINGS: Gallbladder: Small-sized no stones or sludge. Normal wall thickness 2.2 mm. No fluid. Nontender with transducer pressure. Common bile duct: 3.4 mm normal caliber. Liver: Long axis of the right lobe 14.3 cm. Diffuse increased echogenicity. No focal lesions. Normal caliber of the intrahepatic ducts. Normal hepatopedal flow in the portal vein. Smooth capsule with no ascites. Pancreas: Normal echogenicity of the included segments and duct not visualized.. Abdominal aorta: Normal caliber from the proximal segment to the distal bifurcation. IVC: visualized; normal caliber. Spleen normal echogenicity; long axis measurement is 9.9 cm. Right kidney: 9.9 cm long axis. Normal cortical thickness and echogenicity. No hydronephrosis, no echogenic stones, no perirenal fluid. Left kidney: 8.9 cm long axis. Heterogeneous cortical echogenicity with normal thickness. No hydronephrosis, no echogenic stones, no perirenal fluid. IMPRESSION: 1. Steatosis of the liver but normal size. Normal ducts in vascularity. Smooth capsule with no ascites. 2. Gallbladder, pancreas, spleen, bilateral kidneys are unremarkable. Common bile duct normal caliber. Normal caliber of the IVC and abdominal aorta. Electronically signed by: Adin Patel MD 11/30/2018 1:04 PM CDT
== END ==
LOC: US 08:30
PROVIDERS: ATTEND Internal Medicine Gastroenterology
DX: K76.0 Fatty (change of) liver, not elsewhere classified (principal)

== ENCOUNTER → 2018-12-27 | Outpatient (CLI) | payer MEDICARE | LOC: LAB.O 11:54 | PROVIDERS: ATTEND Internal Medicine Gastroenterology | DX: R10.13 Epigastric pain (principal) ==

== ENCOUNTER 2019-05-02 22:24 | Inpatient (IN) | payer MEDICARE ==
--- NOTE | 2019-05-02 22:56 | ED.PDOC ---
History of Present Illness - General Chief Complaint: Upper Extremity Injury Stated Complaint: rt hand pain Time Seen by Provider: 05/02/19 22:56 Source: patient, family Exam Limitations: no limitations - History of Present Illness Initial Comments: 78 yo F who presents from home for fall earlier today, pain continued to worsen and unrelieved with home medication of norco and therefore presented to the ED. Pt states she was standing in her kitchen and the next thing you know she fell. She denied any sx prior to the fall, denies tripping, denies LOC. Pt states she bumped the back of her head very lightly and denies pain there. Pt is on anticoagulation for a fib. Also reports pain to L ribs, L hip. Pt reports compliance with lasix and potassium, hx of CKD but does not see nephrology, pt is not on dialysis. Denies f/c, cough, congestion, CP, SOB, STARK, change in vision, weakness, numbness, abd pain, n/v/d, urinary sx, edema, blood in stool. Allergies/Adverse Reactions: Allergies Rosuvastatin [From Crestor] Allergy (Severe, Verified 05/02/19 23:52) Rash Erythromycin Allergy (Verified 05/02/19 23:52) Nausea Pentazocine [From Talwin Compound] Allergy (Verified 05/02/19 23:52) Rash Rifampin Allergy (Verified 05/02/19 23:52) Rash Atorvastatin [From Lipitor] Adverse Reaction (Intermediate, Verified 05/02/19 23:52) Other Causes muscle pain Benzodiazepines Adverse Reaction (Verified 05/02/19 23:52) Other Some benzos make patient "ZONED out for days" Home Medications: Ambulatory Orders Citalopram Hydrobromide 20 mg PO DAILY #0 11/23/12 Potassium Chloride Tab [K-Dur] 20 meq PO DAILY 09/08/14 Gabapentin 300 mg PO BEDTIME 09/13/16 Furosemide [Lasix] 40 mg PO QAM 03/04/17 HYDROcodone 10MG/APAP 325MG [Marion 10/325] 1 tab PO BEDTIME 03/04/17 Ipratropium/Albuterol [Duoneb] 3 ml NEB Q4HR PRN 03/04/17 Melatonin 10 mg PO BEDTIME 03/04/17 tiZANidine [Zanaflex] 2 mg PO BEDTIME 03/04/17 Fluticasone Furoate-Vilanterol [Breo Ellipta 100-25 Mcg/INH] 1 inh INH DAILY 09/25/18 Furosemide Tab [Lasix Tab] 20 mg PO BEDTIME 09/25/18 Vilazodone HCl [Viibryd] 10 mg PO BEDTIME 09/25/18 busPIRone HCL [Buspar] 10 mg PO BID 09/25/18 metOLazone [Zaroxolyn] 2.5 mg PO DAILY 09/25/18 Metoprolol Succinate ER 100 mg PO DAILY 05/02/19 Rivaroxaban [Xarelto] 15 mg PO DAILY 05/02/19 Review of Systems - Review of Systems Constitutional: Denies: chills, fever EENTM: Denies: blurred vision, double vision, nose congestion Respiratory: Denies: cough, short of breath Cardiology: Denies: chest pain, edema, palpitations, syncope Gastrointestinal/Abdominal: Denies: abdominal pain, constipation, diarrhea, nausea, vomiting Genitourinary: Denies: discharge, dysuria, frequency, hematuria Musculoskeletal: States: other - L rib, L hip pain. Denies: back pain, neck pain Skin: Denies: change in color, lesions, rash Neurological: Denies: headache, numbness, weakness Past Medical History (General) - Patient Medical History Hx Seizures: No Hx Stroke: No Hx Asthma: No Hx of COPD: Yes Hx Cardiac Disorders: Yes - a fib Hx Congestive Heart Failure: Yes Hx Pacemaker: No Hx Hypertension: Yes Hx Diabetes: No Hx Gastroesophageal Reflux: Yes - microcytic colitis, hitatal hernia, GI bleed Hx Cancer: No Hx MRSA: No - Vaccination History Hx Tetanus, Diphtheria Vaccination: No Hx Influenza Vaccination: Yes Hx Pneumococcal Vaccination: Yes - Social History Hx Tobacco Use: Yes Hx Chewing Tobacco Use: No Hx Alcohol Use: No Hx Substance Use: No Hx Substance Use Treatment: No Hx Depression: No Hx Physical Abuse: No Hx Emotional Abuse: No Hx Suspected Abuse: No - Female History Patient : No Family Medical History - Family History Father Family History: No Known Living Status: Hx Cardiac Disease: Yes Mother Family History: No Known Living Status: Physical Exam - Physical Exam General Appearance: Alert, Comfortable, No apparent distress, Other - Grabs L rib when moves positions Eyes, Ears, Nose, Throat Exam: normal ENT inspection Neck: non-tender, full range of motion, supple, normal inspection Cardiovascular/Respiratory: regular rate, rhythm, no M/R/G, normal peripheral pulses, no JVD, normal breath sounds, no respiratory distress Abdominal Exam: non-tender, no organomegaly, other - Soft. No guarding, rebound. Back Exam: normal inspection, no CVA tenderness, no vertebral tenderness Neuro/Tendon: normal sensation, normal motor functions, normal tendon functions, no evidence tendon injury Mental Status: alert, oriented x 3 Skin Exam: normal color, warm/dry Comments: Full ROM of all extremities without deformity, tenderness, or swelling. Pelvis stable. L lower rib TTP. Neurovascularly intact. 2+ distal pulses. Cap refill <2 seconds. Progress - Progress Progress: Discussed with pt need for admission 2/2 SUDHEER and hypokalemia, pt and dog groomer agree with plan. All questions and concerns addressed. Subsequently discussed with Bjorn midlevel for admitting hospitalist, accepts pt for admission. Carmel Urias MD Emergency Medicine Physician Billing Number [id number] - Results/Orders Results/Orders: 05/02/19 22:58 EKG Stat URINALYSIS Stat 05/02/19 22:59 EKG Assessment ONCE Pulse Oximetry Assessment DAILY 05/03/19 01:11 UA [URINALYSIS] Stat 05/03/19 01:18 KCl 40Meq/Ns [NS W/ KCL 40 meq/Liter] 1,000 ml IVS .KVO 05/03/19 01:19 ED Intent to Admit Routine 05/03/19 09:00 Pulse Ox Daily Laboratory Results - last 24 hr 05/02/19 05/02/19 05/02/19 23:20 23:20 23:20 WBC 12.2 H RBC 4.46 Hgb 13.4 Hct 40.1 MCV 89.8 MCH 30.1 MCHC 33.5 RDW 14.0 Plt Count 324 MPV 8.7 Absolute Neuts (auto) 9.50 H Absolute Lymphs (auto) 1.60 Absolute Monos (auto) 0.80 Absolute Eos (auto) 0.20 Absolute Basos (auto) 0.10 Neutrophils % 78.0 Lymphocytes % 13.1 L Monocytes % 6.5 Eosinophils % 1.9 Basophils % 0.5 PT 11.5 H INR 1.15 PTT (SP) 26.3 Sodium Potassium Chloride Carbon Dioxide Anion Gap BUN Creatinine BUN/Creatinine Ratio Random Glucose Serum Osmolality Calcium Troponin I 0.03 05/02/19 23:30 WBC RBC Hgb Hct MCV MCH MCHC RDW Plt Count MPV Absolute Neuts (auto) Absolute Lymphs (auto) Absolute Monos (auto) Absolute Eos (auto) Absolute Basos (auto) Neutrophils % Lymphocytes % Monocytes % Eosinophils % Basophils % PT INR PTT (SP) Sodium 137 Potassium 2.8 L Chloride 92 L Carbon Dioxide 26 Anion Gap 21.8 H BUN 85 H Creatinine 3.71 H BUN/Creatinine Ratio 22.9 H Random Glucose 155 H Serum Osmolality 302.8 H Calcium 9.[address] head: EXAM: CT head without IV contrast CLINICAL DATA: FALL WITH PAIN TECHNICAL DATA: Multiple axial CT images of the brain were performed followed by sagittal and coronal reconstructed images. The CT study is performed according to ALARA (as low as reasonably achievable) or ALARA/IMAGE GENTLY, with automatic adjustment of mA and/or kV according to patient size. Performed on: 05/02/2019 at 11:57 PM Comparisons: 09/25/2018. FINDINGS: There is no evidence of mass, acute mass effect or midline shift. There are no acute extra-axial fluid collections. There is no evidence of acute intracranial hemorrhage. There are calcifications along the cavernous carotid arteries and distal vertebral arteries. The cerebral sulci and ventricles are prominent consistent with mild cerebral volume loss. There are scattered areas of decreased attenuation within the subcortical and periventricular white matter most likely due to mild chronic microangiopathy. There is mild mucosal thickening of the sphenoid sinuses. The mastoid air cells are clear. The orbital contents are grossly unremarkable. No acute osseous abnormalities are identified. No focal soft tissue abnormalities are identified. IMPRESSION: 1. There is no evidence of acute intracranial pathology. No significant change since the prior study. 2. Mild cerebral atrophy with findings consistent with chronic microangiopathy. Electronically signed by: Michelle Lu DO 05/03/2019 1:[address] C spine: CLINICAL HISTORY: FALL WITH PAIN COMPARISON: None. TECHNIQUE: CT CERVICAL SPINE WITHOUT IV CONTRAST on 05/02/2019 12:00 AM SPICE BLENDER This exam was performed according to our departmental dose-optimization program, which includes automated exposure control, adjustment of the mA and/or kV according to patient size and/or use of iterative reconstruction technique. FINDINGS: There is no acute fracture. There is grade 1 anterolisthesis of C4 on C5. There is moderate diffuse facet arthritis. There is moderate narrowing of the C4-5, C5-6 and C6-7 discs. Vertebral body heights are preserved. Soft tissues are unremarkable. IMPRESSION: Diffuse degenerative changes without acute fracture. Electronically signed by: Boogie Rae MD 05/03/2019 1:02 AM SPICE BLENDER Pelvis XR: CLINICAL HISTORY: fell on left side COMPARISON: None. TECHNIQUE: XR PELVIS 1-2 VIEWS 05/02/2019 10:58 PM SPICE BLENDER FINDINGS: There is no fracture. There is mild narrowing of both hip joints. There are extensive vascular stents within the upper thighs. Soft tissues are unremarkable. IMPRESSION: No acute osseous findings. Electronically signed by: Boogie Rae MD 05/02/2019 11:51 PM SPICE BLENDER L Hip XR: CLINICAL HISTORY: FALL WITH PAIN COMPARISON: None. TECHNIQUE: XR HIP 2 OR MORE VIEWS 05/02/2019 12:00 AM SPICE BLENDER FINDINGS: There is no fracture. There is mild narrowing of the left hip joint. There are vascular stents in the upper left thigh. Soft tissues are unremarkable. IMPRESSION: No acute osseous findings. Electronically signed by: Boogie Rae MD 05/02/2019 11:52 PM SPICE BLENDER L Ribs: CLINICAL HISTORY: fall, left side COMPARISON: None. TECHNIQUE: XR RIBS 2 VIEWS UNILATERAL 05/02/2019 11:07 PM SPICE BLENDER FINDINGS: Cardiac silhouette is normal in size. Lungs are clear without consolidation, atelectasis, mass or edema. There is no pleural effusion. There is no pneumothorax. There are no acute osseous findings. IMPRESSION: No definite fracture. Electronically signed by: Boogie Rae MD 05/02/2019 11:51 PM SPICE BLENDER CXR: CLINICAL HISTORY: fell on left side COMPARISON: December 03, 2017. TECHNIQUE: XR CHEST 1 VIEW 05/02/2019 10:58 PM SPICE BLENDER FINDINGS: Cardiac silhouette is normal in size. Lungs are clear without consolidation, atelectasis, mass or edema. There is no pleural effusion. There is no pneumothorax. There are no acute osseous findings. IMPRESSION: Clear lungs. Electronically signed by: Boogie Rae MD 05/02/2019 11:50 PM SPICE BLENDER Vital Signs - 24 hr 05/02/19 05/03/19 05/03/19 22:59 00:25 01:36 Temperature 98.4 F Pulse Rate [ 73 77 80 left] Respiratory 18 16 16 Rate Blood Pressure 92/60 92/70 103/65 [left] O2 Sat by Pulse 93 L 93 L 96 Oximetry - EKG/XRAY/CT EKG: nonspecific ST T wave Chg Comments: A fib, rate of 103 Departure - Departure Clinical Impression: SUDHEER (acute kidney injury), Hypokalemia Disposition: Admit Patient Condition: Fair Home Medications: Ambulatory Orders Citalopram Hydrobromide 20 mg PO DAILY #0 11/23/12 Potassium Chloride Tab [K-Dur] 20 meq PO DAILY 09/08/14 Gabapentin 300 mg PO BEDTIME 09/13/16 Furosemide [Lasix] 40 mg PO QAM 03/04/17 HYDROcodone 10MG/APAP 325MG [Marion 10/325] 1 tab PO BEDTIME 03/04/17 Ipratropium/Albuterol [Duoneb] 3 ml NEB Q4HR PRN 03/04/17 Melatonin 10 mg PO BEDTIME 03/04/17 tiZANidine [Zanaflex] 2 mg PO BEDTIME 03/04/17 Fluticasone Furoate-Vilanterol [Breo Ellipta 100-25 Mcg/INH] 1 inh INH DAILY 09/25/18 Furosemide Tab [Lasix Tab] 20 mg PO BEDTIME 09/25/18 Vilazodone HCl [Viibryd] 10 mg PO BEDTIME 09/25/18 busPIRone HCL [Buspar] 10 mg PO BID 09/25/18 metOLazone [Zaroxolyn] 2.5 mg PO DAILY 09/25/18 Metoprolol Succinate ER 100 mg PO DAILY 05/02/19 Rivaroxaban [Xarelto] 15 mg PO DAILY 05/02/19
--- NOTE | 2019-05-02 23:52 | RAD ---
CLINICAL HISTORY: fell on left side COMPARISON: December 03, 2017. TECHNIQUE: XR CHEST 1 VIEW 05/02/2019 10:58 PM DIRECTOR OF OCCUPATIONAL HEALTH FINDINGS: Cardiac silhouette is normal in size. Lungs are clear without consolidation, atelectasis, mass or edema. There is no pleural effusion. There is no pneumothorax. There are no acute osseous findings. IMPRESSION: Clear lungs. Electronically signed by: Boogie Rae MD 05/02/2019 11:50 PM DIRECTOR OF OCCUPATIONAL HEALTH
--- NOTE | 2019-05-02 23:52 | RAD ---
CLINICAL HISTORY: fell on left side COMPARISON: None. TECHNIQUE: XR PELVIS 1-2 VIEWS 05/02/2019 10:58 PM SHOE FOLDER FINDINGS: There is no fracture. There is mild narrowing of both hip joints. There are extensive vascular stents within the upper thighs. Soft tissues are unremarkable. IMPRESSION: No acute osseous findings. Electronically signed by: Boogie Rae MD 05/02/2019 11:51 PM SHOE FOLDER
--- NOTE | 2019-05-02 23:53 | RAD ---
CLINICAL HISTORY: fall, left side COMPARISON: None. TECHNIQUE: XR RIBS 2 VIEWS UNILATERAL 05/02/2019 11:07 PM FIRE EXTINGUISHER CHARGER FINDINGS: Cardiac silhouette is normal in size. Lungs are clear without consolidation, atelectasis, mass or edema. There is no pleural effusion. There is no pneumothorax. There are no acute osseous findings. IMPRESSION: No definite fracture. Electronically signed by: Boogie Rae MD 05/02/2019 11:51 PM FIRE EXTINGUISHER CHARGER
--- NOTE | 2019-05-02 23:53 | RAD ---
CLINICAL HISTORY: FALL WITH PAIN COMPARISON: None. TECHNIQUE: XR HIP 2 OR MORE VIEWS 05/02/2019 12:00 AM STENCIL SPRAYER FINDINGS: There is no fracture. There is mild narrowing of the left hip joint. There are vascular stents in the upper left thigh. Soft tissues are unremarkable. IMPRESSION: No acute osseous findings. Electronically signed by: Boogie Rae MD 05/02/2019 11:52 PM STENCIL SPRAYER
[2019-05-03] MEDS ORDERED: MORPHINE SULFATE INJ 10 MG/ML VIAL IV ONE (01:02)
--- NOTE | 2019-05-03 01:04 | CT ---
CLINICAL HISTORY: FALL WITH PAIN COMPARISON: None. TECHNIQUE: CT CERVICAL SPINE WITHOUT IV CONTRAST on 05/02/2019 12:00 AM SEWER REPAIRER This exam was performed according to our departmental dose-optimization program, which includes automated exposure control, adjustment of the mA and/or kV according to patient size and/or use of iterative reconstruction technique. FINDINGS: There is no acute fracture. There is grade 1 anterolisthesis of C4 on C5. There is moderate diffuse facet arthritis. There is moderate narrowing of the C4-5, C5-6 and C6-7 discs. Vertebral body heights are preserved. Soft tissues are unremarkable. IMPRESSION: Diffuse degenerative changes without acute fracture. Electronically signed by: Boogie Rae MD 05/03/2019 1:02 AM SEWER REPAIRER
--- NOTE | 2019-05-03 01:05 | CT ---
EXAM: CT head without IV contrast CLINICAL DATA: FALL WITH PAIN TECHNICAL DATA: Multiple axial CT images of the brain were performed followed by sagittal and coronal reconstructed images. The CT study is performed according to ALARA (as low as reasonably achievable) or ALARA/IMAGE GENTLY, with automatic adjustment of mA and/or kV according to patient size. Performed on: 05/02/2019 at 11:57 PM Comparisons: 09/25/2018. FINDINGS: There is no evidence of mass, acute mass effect or midline shift. There are no acute extra-axial fluid collections. There is no evidence of acute intracranial hemorrhage. There are calcifications along the cavernous carotid arteries and distal vertebral arteries. The cerebral sulci and ventricles are prominent consistent with mild cerebral volume loss. There are scattered areas of decreased attenuation within the subcortical and periventricular white matter most likely due to mild chronic microangiopathy. There is mild mucosal thickening of the sphenoid sinuses. The mastoid air cells are clear. The orbital contents are grossly unremarkable. No acute osseous abnormalities are identified. No focal soft tissue abnormalities are identified. IMPRESSION: 1. There is no evidence of acute intracranial pathology. No significant change since the prior study. 2. Mild cerebral atrophy with findings consistent with chronic microangiopathy. Electronically signed by: Michelle Lu DO 05/03/2019 1:03 AM [facility]
[2019-05-03] MEDS ORDERED: SODIUM CHLORIDE 0.9% 250ML 1,000 ML IVS PRN (01:13)
[2019-05-03] MEDS ORDERED: KCL 40MEQ/NS 1,000 ML IVS PRN (01:18)
--- NOTE | 2019-05-03 01:48 | HP ---
SUPERVISING PHYSICIAN: Diego García MD CHIEF COMPLAINT: Fall at home. HISTORY OF PRESENT ILLNESS: This is a 78 year-old female patient who fell at home on the day prior to admission. She was not sure how she fell but she was standing in her kitchen and then she slumped to the floor. She denied any loss of consciousness. She also said she did not trip. She did bump the back of her head slightly as well as she had pain to her left ribs and left hip. She has a history of congestive heart failure and chronic kidney disease. She cannot remember her psychologist industrial organizational's name and she has not seen nephrology for quite some time. In the Emergency Room, her initial vital signs were temperature of 98.4 with a heart rate of 73. It went up later to 99. Her blood pressures were slightly on the low side while in the Emergency Room with a reading of 92/60 as well as a 94/58, respiratory rate was 18 oxygen saturation was 93%. Labs were done and she had a white count of 12,200. The remainder of her CBC was unremarkable. Coagulations were within normal limits. Initial troponin was 0.03 with a sodium of 137, potassium 2.8, chloride 92, carbon dioxide 26. BUN was 85 and creatinine was 3.71. Her baseline creatinine appears to be 1.8. Glucose 155, serum osmolality 302.8, magnesium 1.9. Urinalysis showed a small amount of urine blood, a small amount of urine leukocyte esterase, 5 to 10 urine RBCs, too numerous to count urine WBCs and 3+ urine bacteria. Her cervical spine CT showed diffuse degenerative changes without acute fracture. CT of her head showed: 1. There is no evidence of acute intracranial pathology, no significant change from prior study. 2. Mild cerebral atrophy with findings consistent with chronic microangiopathy. Left hip x-ray showed no acute osseous findings. The pelvis x-ray shows no acute osseous findings. Rib x-rays shows no definite fracture. Chest x-ray shows clear lungs. In the Emergency Room, she was given some fluids as well as some potassium and the hospitalist was called for admission. PAST MEDICAL HISTORY: 1. Atrial fibrillation presently on Xarelto. 2. Gastroesophageal reflux disease. 3. Chronic obstructive pulmonary disease. 4. Congestive heart failure of unknown etiology with no current echocardiograms to review. 5. History of cervical cancer. 6. Atherosclerosis with claudication and stent placement of the femoral arteries. 7. Chronic kidney disease. PAST SURGICAL HISTORY: 1. Hemorrhoidectomy. 2. Bilateral femoral stents. 3. Hysterectomy. 4. Appendectomy. 5. Cervical cone biopsy. CURRENT MEDICATIONS: 1. Formamide. 2. Metolazone. 3. BuSpar. 4. Citalopram. 5. Bred Ellipta. 6. Gabapentin. 7. Hydrocodone. 8. Duoneb. 9. Melatonin. 10. Metoprolol Succinate. 11. Potassium chloride. 12. Xarelto. 13. Tizanidine. 14. Viibryd. ALLERGIES: 1. Erythromycin. 2. Rifampin. 3. Statin drugs. FAMILY HISTORY: Positive for coronary artery disease, hypertension and cancer. SOCIAL HISTORY: She lives in [place] with her son. 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 She quit smoking approximately 6 years ago and she denies any alcohol or illicit drug use. PRIMARY CARE PHYSICIAN: Nyasia Diaz in [place], [place]. She could not remember the name of her psychologist industrial organizational. REVIEW OF SYSTEMS: GENERAL: Positive for fatigue, negative for fever or weight changes. HEENT: Negative for sinus symptoms, ear pain, vision changes, sore throat. . RESPIRATORY: Negative for coughing, wheezing or shortness of breath. CARDIOVASCULAR: Negative for chest pains, palpitations or tachycardia. GASTROINTESTINAL: Negative for abdominal pain, nausea, vomiting, diarrhea or constipation. GENITOURINARY: Negative for dysuria, hematuria, polyuria. . MUSCULOSKELETAL: As noted in History of Present Illness.. NEUROLOGIC: Positive for weakness and anxiety as well as a syncopal episode. . PHYSICAL EXAMINATION: VITAL SIGNS: Temperature 97.8, heart rate 82, blood pressure 94/58, respiratory rate 16, oxygen saturation 97% on 3 liters nasal cannula. GENERAL: This is a 78 year-old female patient who looks to be moderately ill, although she is in no acute distress. HEENT: Normocephalic and atraumatic. Pupils are equal and reactive. Oropharynx is clear. NECK: Supple without mass. There is no obvious jugular venous distention. CHEST: Essentially clear to auscultation bilaterally, slightly diminished at the bases. There is equal rise and fall of the chest with inspiration and expiration. CARDIOVASCULAR: Regular rate and rhythm. ABDOMEN: Soft, nondistended, non-tender. Bowel sounds are positive. EXTREMITIES: No cyanosis, clubbing, or edema. NEUROLOGIC: Cranial nerves II through XII are grossly intact, although she seems to answer questions very slowly and appears to be very tired. She is oriented x3. Labs and films are as per the history of present illness. ASSESSMENT: 1. Acute on chronic renal failure,. Her baseline creatinine is approximately 1.8, on admission it was 3.81. 2. Dehydration most likely secondary to her poor oral intake as well as her diuretic medications. 3. Urinary tract infection. 4. Hypokalemia. 5. Syncopal episode at home resulting in a same-level fall with negative head CT as well as x-rays. 6. Congestive heart failure of unknown etiology. No echocardiogram to review. 7. History of gastroesophageal reflux disease. 8. History of atrial fibrillation, on metoprolol and Xarelto. 9. Chronic obstructive pulmonary disease in a previous smoker with signs or symptoms of exacerbation. PLAN: We have admitted the patient to the hospital. She will receive judicious fluids, hopefully her creatinine will come down. At this point, I have held her diuretics and I will speak with Dr. Perry, renewable energy division manager, tomorrow for recommendations on restarting those as well as to obtain an appointment with him after discharge. She will need to be followed closely by nephrology. I have also started her on Rocephin for her urinary tract infection and cultures are pending on the urinalysis. Her potassium has been replaced and I have drawn labs for in the morning to follow those. I think her falling has been due to her poor oral intake as well as the diuretics that have caused some dehydration, so her diuretics will most likely need to be adjusted. I will also order an echocardiogram on her as I am not sure where she is or what her ejection fraction is. Her Xarelto will be sufficient for DVT prophylaxis. She is also on a PPI for ulcer prophylaxis. Her home medications will be restarted with the exception of her diuretics for now. We will continue to monitor closely and follow as needed. #[id number] [facility]
[2019-05-03] MEDS ORDERED: MAGNESIUM HYDROXIDE 30 ML UD PO PRN (02:12)
[2019-05-03] MEDS ORDERED: ALUM & MAG HYDROX-SIMETHICONE 30 ML UD PO PRN (02:12)
[2019-05-03] MEDS ORDERED: SODIUM CHLORIDE 0.9% (FLUSH) 10 ML SYG IV PRN (02:12)
[2019-05-03] MEDS ORDERED: ONDANSETRON INJ 4 MG/2 ML VIAL IV PRN (02:12)
[2019-05-03] MEDS ORDERED: POTASSIUM CHLORIDE ELIXIR 20 MEQ/15 ML UD PO ONE (02:22)
[2019-05-03] MEDS: IV SET AND CAP CHANGE INJ INJ SCH (03:32)
[2019-05-03] MEDS ORDERED: PANTOPRAZOLE SODIUM TAB 40 MG PO ONE (04:07)
[2019-05-03] MEDS: MORPHINE SULFATE INJ 10 MG/ML VIAL IV PRN ×2 (04:15→11:29)
[2019-05-03] MEDS: OMEPRAZOLE CAP 20 MG CAP PO SCH (05:38)
[2019-05-03] MEDS ORDERED: METOPROLOL SUCCINATE XL 100 MG TAB PO SCH (10:00)
[2019-05-03] MEDS ORDERED: METOPROLOL TARTRATE 25 MG TAB ONE (11:18)
[2019-05-03] MEDS: RIVAROXABAN 15 MG TAB PO SCH (11:19)
[2019-05-03] MEDS: CITALOPRAM HBR 20 MG TAB PO SCH (11:19)
[2019-05-03] MEDS: busPIRone HCL 5 MG TAB PO SCH ×3 (11:19→20:48)
[2019-05-03] MEDS: METOPROLOL TARTRATE 25 MG TAB PO SCH ×2 (11:23→20:34)
[2019-05-03] MEDS: cefTRIAXone SODIUM 1 GM in SODIUM CHL 0.9% 50ML MIN-BAG+ 50 ML IVPB SCH (12:36)
[2019-05-03] MEDS ORDERED: SODIUM CHL 0.9% 50ML MIN-BAG+ 50 ML IVPB ONE (14:03)
[2019-05-03] MEDS ORDERED: cefTRIAXone SODIUM 1 GM VIAL ONE (14:04)
[2019-05-03] MEDS: SODIUM CHLORIDE 0.9% 1000ML 1,000 ML IVS PRN ×2 (16:06→20:56)
[2019-05-03] MEDS ORDERED: METOPROLOL TARTRATE 25 MG TAB PO ONE (17:40)
[2019-05-03] MEDS: HYDROcodone 7.5MG/APAP 325MG 1 EA TAB PO PRN (18:53)
[2019-05-03] MEDS: MELATONIN 3 MG TAB PO SCH ×2 (20:32→20:49)
[2019-05-03] MEDS: GABAPENTIN 300 MG CAP PO SCH ×2 (20:33→20:49)
[2019-05-03] MEDS: tiZANidine 4 MG TAB PO SCH ×2 (20:34→20:49)
[2019-05-03] MEDS: FLUTICASONE FUROATE VILANTEROL INH SCH (20:34)
[2019-05-03] MEDS: VILAZODONE HCL 10 MG PO SCH (20:49)
[2019-05-03] MEDS ORDERED: ENOXAPARIN SODIUM 30 MG/0.3 ML SYG SUBCU SCH (21:00)
[2019-05-03] MEDS ORDERED: HYDROcodone 10MG/APAP 325MG 1 EA TAB PO SCH (21:00)
[2019-05-04] MEDS: HYDROcodone 7.5MG/APAP 325MG 1 EA TAB PO PRN (03:56)
[2019-05-04] MEDS: OMEPRAZOLE CAP 20 MG CAP PO SCH (06:00)
--- NOTE | 2019-05-04 07:41 | RAD ---
EXAM DESCRIPTION: Chest,1 View CLINICAL HISTORY: 78 years Female, chf COMPARISON: Left rib radiographs 05/02/2019.. TECHNIQUE: Single view radiograph of the chest. IMPRESSION: Stably enlarged cardiac silhouette. Partially calcified aorta No lobar or masslike consolidation. No pleural effusion or pneumothorax. Thoracic spondylosis. Electronically signed by: Sridhar Martin MD 05/04/2019 7:40 AM ASSEMBLY REPAIRER
[2019-05-04] MEDS ORDERED: MAGNESIUM SULFATE PREMIX 2GM 2 GM in PREMIX BAG 1 BAG IVPB ONE (08:17)
[2019-05-04] MEDS ORDERED: MAGNESIUM SULFATE PREMIX 2GM 50 ML IVPB ONE (09:12)
--- NOTE | 2019-05-04 09:27 | CT ---
EXAM DESCRIPTION: Head: Computed Tomography. CLINICAL HISTORY: change in loc COMPARISON: CT scan of the head without contrast [address] scan of the head 25 September 2018.. TECHNIQUE: Non-helical axial scans through the skull and brain, at 0.5 x 20 mm intervals, non-contrast. Coronal and sagittal 2.0 mm reconstructions. Total Exam DLP: 859.97 mGy-cm. This exam was performed according to our departmental dose-optimization program which includes automated exposure control, adjustment of the mA and/or kV according to patient size and/or use of iterative reconstruction technique; to reduce radiation dose to as low as reasonably achievable (ALARA). FINDINGS: No hemorrhage, no mass-effect, and no midline shift. Decreased density in the periventricular white matter abutting the frontal horns and the posterior lateral ventricles. Also in the ruiz radiata bilaterally superior to the basal ganglia. No abnormal radiodense material in the brain parenchyma. Vascular calcifications anterior and posterior circulations; physiologic calcifications in the pineal gland and choroid plexus. No effacement or displacement of the ventricles, CSF spaces, or subdural spaces. No extra axial fluid collection or hemorrhage. Prominent cortical sulci frontal parietal and occipital lobes and slight enlargement of the ventricles stable since the prior study. No gross abnormalities of the bony calvarium. Included paranasal sinuses and mastoid air cells are well - aerated. IMPRESSION: 1. No hemorrhage, no mass effect, no midline shift. Mild cortical and central atrophy stable. No extra-axial hemorrhage or fluid collection. Stable since CT scan 2 days ago and September 2018. 2. CT scans are insensitive for detecting small CVAs in the first 24 hours after onset. Evaluation of the brain stem is also limited. If symptoms persist, consider NON-EMERGENT MRI scan of the brain with diffusion imaging. Electronically signed by: Adin Patel MD 05/04/2019 9:25 AM WRAPPING MACHINE HELPER
[2019-05-04] MEDS: KCL 20MEQ/0.45% NS 1,000 ML IVS PRN ×2 (09:51→23:19)
[2019-05-04] MEDS ORDERED: SODIUM CHL 0.9% 50ML MIN-BAG+ 50 ML IVPB ONE (09:52)
[2019-05-04] MEDS ORDERED: cefTRIAXone SODIUM 1 GM VIAL ONE (09:53)
[2019-05-04] MEDS: POTASSIUM CHLORIDE 20 MEQ TAB PO SCH (09:56)
[2019-05-04] MEDS: CITALOPRAM HBR 20 MG TAB PO SCH (09:56)
[2019-05-04] MEDS: busPIRone HCL 5 MG TAB PO SCH ×2 (09:56→20:14)
[2019-05-04] MEDS: METOPROLOL TARTRATE 50 MG TAB PO SCH ×2 (09:56→20:14)
[2019-05-04] MEDS: FLUTICASONE FUROATE VILANTEROL INH SCH (10:20)
[2019-05-04] MEDS: cefTRIAXone SODIUM 1 GM in SODIUM CHL 0.9% 50ML MIN-BAG+ 50 ML IVPB SCH (12:30)
[2019-05-04] MEDS: RIVAROXABAN 15 MG TAB PO SCH (13:57)
[2019-05-04] MEDS: HYDROcodone 5MG/APAP 325MG 1 EA TAB PO PRN ×2 (15:15→19:42)
--- NOTE | 2019-05-04 19:51 | PN ---
DATE: 05/04/19 SUPERVISING PHYSICIAN: Diego García M.D. SUBJECTIVE: The patient is lying in bed. The nurses are at her bedside assisting her to get to the chair. Earlier in the day it was reported that she was very lethargic and had difficulty responding to questions. She is still somewhat lethargic but she does answer questions appropriately. She denies any nausea, vomiting, diarrhea, constipation, chest pain or shortness of breath. OBJECTIVE: VITAL SIGNS: Temperature 98, heart rate 89, blood pressure 110/61, respiratory rate 20, O2 saturation 96% on 2 liters nasal cannula. RESPIRATORY: Slightly diminished at the bases, but otherwise clear to auscultation. CARDIAC: Regular rate and rhythm. GASTROINTESTINAL: Abdomen is soft, nondistended, non-tender. Bowel sounds are positive. EXTREMITIES: No clubbing, cyanosis or edema. NEUROLOGIC: She is lethargic but awakens easily. She is oriented to person and place. LABORATORY: CBC is unremarkable with sodium 140, potassium 3.1, chloride 102, carbon dioxide 25. BUN is 83, creatinine has improved to 2.77. Serum osmolality is 306.2 with magnesium 1.7, calcium 8.3. Ammonia 17. Urine culture is pending. Chest x-ray shows stable enlarged cardiac silhouette, partially calcified aorta. No lobar or mass like consolidation. No pleural effusion or pneumothorax. Thoracic spondylosis. Head CT shows: 1. No hemorrhage. No mass effect. No midline shift. Mild cortical and central atrophy, stable. No extra-axial hemorrhage or fluid collection. Stable since CT scan 2 days ago and September 2018. 2. CT scans are insensitive for detecting small cerebrovascular accidents in the first 24 hours after onset. Evaluation of the brainstem is also limited. If symptoms persistent, consider non-emergent MRI scan of the brain with diffusion imaging. All other labs and films have been reviewed via the EMR. ASSESSMENT: 1. Acute on chronic renal failure. Her baseline creatinine is approximately 1.8, on admission it was 3.81. 2. Dehydration most likely secondary to her poor oral intake as well as her diuretic medications. 3. Urinary tract infection. 4. Hypokalemia. 5. Syncopal episode at home resulting in a same-level fall with negative head CT as well as x-rays. 6. Congestive heart failure of unknown etiology. No echocardiogram to review. 7. History of gastroesophageal reflux disease. 8. History of atrial fibrillation, on metoprolol and Xarelto. 9. Chronic obstructive pulmonary disease in a previous smoker with signs or symptoms of exacerbation. 10. Decreased level of consciousness most likely secondary to poor creatinine clearance with a negative head CT. PLAN: We will continue present supportive care. I will continue giving judicious fluids and hopefully we can improve her renal function. I have held some of her medications that can cause some changes in her level of consciousness and I have decreased her pain medications from 10 mg of Hydrocodone to 5 mg. Hopefully over the next day or so her level of consciousness will improve with her improving creatinine. She will need to see nephrology after discharge. We are also awaiting her culture for her urinary tract infection and will continue Rocephin for now. Aggressive pulmonary hygiene has been ordered. She is to get up in the chair 3 to 4 times daily. I will also do a physical therapy consultation. Her labs will be repeated in the morning. Will continue to monitor closely and follow as needed. #[id number] [facility]
[2019-05-04] MEDS: MELATONIN 3 MG TAB PO SCH (20:14)
[2019-05-04] MEDS: GABAPENTIN 300 MG CAP PO SCH (20:15)
[2019-05-04] MEDS: VILAZODONE HCL 10 MG PO SCH (20:15)
[2019-05-04] MEDS: IPRATROPIUM/ALBUTEROL 3 ML VIAL NEB PRN (20:34)
[2019-05-05] MEDS: HYDROcodone 5MG/APAP 325MG 1 EA TAB PO PRN ×3 (03:44→15:42)
[2019-05-05] MEDS: OMEPRAZOLE CAP 20 MG CAP PO SCH (06:13)
[2019-05-05] MEDS: FLUTICASONE FUROATE VILANTEROL INH SCH (07:45)
[2019-05-05] MEDS: IPRATROPIUM/ALBUTEROL 3 ML VIAL NEB PRN (07:45)
[2019-05-05] MEDS ORDERED: POTASSIUM CHLORIDE 20 MEQ TAB PO ONE ×2 (08:03→11:52)
[2019-05-05] MEDS: POTASSIUM CHLORIDE 20 MEQ TAB PO SCH (09:26)
[2019-05-05] MEDS: busPIRone HCL 5 MG TAB PO SCH ×2 (09:26→20:39)
[2019-05-05] MEDS: METOPROLOL TARTRATE 50 MG TAB PO SCH ×2 (09:26→20:39)
[2019-05-05] MEDS: CITALOPRAM HBR 20 MG TAB PO SCH (09:26)
[2019-05-05] MEDS ORDERED: cefTRIAXone SODIUM 1 GM VIAL ONE (11:06)
[2019-05-05] MEDS ORDERED: SODIUM CHL 0.9% 50ML MIN-BAG+ 50 ML IVPB ONE (11:06)
[2019-05-05] MEDS: KCL 20MEQ/0.45% NS 1,000 ML IVS PRN (11:22)
[2019-05-05] MEDS: cefTRIAXone SODIUM 1 GM in SODIUM CHL 0.9% 50ML MIN-BAG+ 50 ML IVPB SCH (11:23)
[2019-05-05] MEDS: RIVAROXABAN 15 MG TAB PO SCH (12:12)
[2019-05-05] MEDS: HYDROcodone 7.5MG/APAP 325MG 1 EA TAB PO PRN (17:51)
[2019-05-05] MEDS: MELATONIN 3 MG TAB PO SCH (20:38)
[2019-05-05] MEDS: VILAZODONE HCL 10 MG PO SCH (20:39)
[2019-05-05] MEDS: GABAPENTIN 300 MG CAP PO SCH (20:39)
--- NOTE | 2019-05-05 22:41 | PN ---
DATE: 05/05/19 SUPERVISING PHYSICIAN: Diego García M.D. SUBJECTIVE: The patient is sitting up in bed. She is eating. She is much more alert today. She answers questions appropriately. She complains that her pain is not controlled, but I explained that we had to go down on her pain medications as well as her other medications due to her lethargy and her kidney function. Otherwise she denies any shortness of breath, chest pain, nausea, vomiting or diarrhea. OBJECTIVE: VITAL SIGNS: Temperature 98.4, heart rate 87, blood pressure 104/60, respiratory rate 20, O2 saturation 93% on 2 liters nasal cannula. RESPIRATORY: Essentially clear to auscultation bilaterally. CARDIAC: Regular rate and rhythm. GASTROINTESTINAL: Abdomen is soft, nondistended, non-tender. Bowel sounds are positive. NEUROLOGIC: She is awake, alert and oriented times three. LABORATORY: CBC is unremarkable other than her H&H dropped slightly to 10.6 and 31.7. Potassium was low this morning at 2.8 but her creatinine improved to 1.59. Her other lab and metabolic panel were unremarkable. Urine culture is still pending. All other labs and films have been reviewed via the EMR. ASSESSMENT: 1. Acute on chronic renal failure. Her baseline creatinine is approximately 1.8, on admission it was 3.81. Today it is 1.57. 2. Dehydration most likely secondary to poor oral intake as well as her diuretic medications as well as her pain medications and other psychotropic medications which has improved. 3. Urinary tract infection. 4. Hypokalemia. 5. Syncopal episode at home resulting in a same-level fall with negative head CT as well as x-rays. 6. Congestive heart failure of unknown etiology. No echocardiogram to review. 7. History of gastroesophageal reflux disease. 8. History of atrial fibrillation, on metoprolol and Xarelto. 9. Chronic obstructive pulmonary disease in a previous smoker with signs or symptoms of exacerbation. 10. Decreased level of consciousness most likely secondary to poor creatinine clearance with a negative head CT which has improved. PLAN: We will continue present supportive care. I have discontinued her fluids and given her some potassium supplementation. I will recheck her labs in the morning. I will need to get a referral with Dr. Perry, econometrician, and will need to adjust her medications. Will need to get in touch with her primary care physician, Dr. Nyasia Diaz, and let her know what changes we have made. Otherwise will continue to monitor closely and follow as needed. #[id number] [facility]
[2019-05-06] MEDS: HYDROcodone 7.5MG/APAP 325MG 1 EA TAB PO PRN ×2 (01:00→06:05)
[2019-05-06] MEDS: KCL 20MEQ/0.45% NS 1,000 ML IVS PRN (04:35)
[2019-05-06] MEDS: IV SET AND CAP CHANGE INJ INJ SCH (04:35)
[2019-05-06] MEDS: OMEPRAZOLE CAP 20 MG CAP PO SCH (06:02)
[2019-05-06] MEDS: FLUTICASONE FUROATE VILANTEROL INH SCH (07:27)
[2019-05-06] MEDS: IPRATROPIUM/ALBUTEROL 3 ML VIAL NEB PRN ×2 (07:27→11:40)
[2019-05-06] MEDS: CITALOPRAM HBR 20 MG TAB PO SCH (09:09)
[2019-05-06] MEDS: POTASSIUM CHLORIDE 20 MEQ TAB PO SCH (09:09)
[2019-05-06] MEDS: METOPROLOL TARTRATE 50 MG TAB PO SCH ×2 (09:09→20:06)
[2019-05-06] MEDS: busPIRone HCL 5 MG TAB PO SCH ×2 (09:10→20:07)
[2019-05-06] MEDS ORDERED: cefTRIAXone SODIUM 1 GM VIAL ONE (11:59)
[2019-05-06] MEDS ORDERED: SODIUM CHL 0.9% 50ML MIN-BAG+ 50 ML IVPB ONE (11:59)
[2019-05-06] MEDS: cefTRIAXone SODIUM 1 GM in SODIUM CHL 0.9% 50ML MIN-BAG+ 50 ML IVPB SCH (12:00)
[2019-05-06] MEDS: RIVAROXABAN 15 MG TAB PO SCH (12:01)
[2019-05-06] MEDS ORDERED: HYDROcodone 5MG/APAP 325MG 1 EA TAB PO PRN (12:25)
[2019-05-06] MEDS ORDERED: DEX 5% W/NACL 0.45% 1000ML 1,000 ML IVS PRN (13:16)
[2019-05-06] MEDS ORDERED: metOLazone 2.5 MG TAB PO ONE (13:45)
[2019-05-06] MEDS: FUROSEMIDE INJ 40 MG/4 ML VIAL IV SCH (13:48)
[2019-05-06] MEDS: KCL 20MEQ/D5 1/2NS 1,000 ML IVS PRN ×2 (13:53→23:11)
[2019-05-06] MEDS ORDERED: metOLazone 2.5 MG TAB PO SCH (14:00)
[2019-05-06] MEDS: IPRATROPIUM/ALBUTEROL 3 ML VIAL NEB SCH ×2 (16:33→20:27)
[2019-05-06] MEDS ORDERED: GABAPENTIN 100 MG CAP ONE (18:50)
[2019-05-06] MEDS: GABAPENTIN 100 MG CAP PO SCH (20:07)
--- NOTE | 2019-05-06 21:06 | PN ---
DATE: 05/06/19 SUPERVISING PHYSICIAN: Diego García M.D. SUBJECTIVE: The patient was very lethargic this morning. She refused her respiratory treatments as well as her pulmonary hygiene. She had a difficult time answering questions and the nursing staff as well as Respiratory Therapy got her up to the chair. She is more awake now, although she is still quite lethargic. She does answer questions appropriately. She denies any pain at this time, although she says she hurts all the time although she cannot tell me where she hurts. OBJECTIVE: VITAL SIGNS: Temperature 97.5, heart rate 98, blood pressure 134/87, respiratory rate 24, O2 saturation 96% on 2 liters nasal cannula. RESPIRATORY: Scattered rhonchi throughout. Diminished at the bases. She gets slightly tachypneic at times. CARDIAC: Regular rate and rhythm. GASTROINTESTINAL: Abdomen is soft, nondistended, non-tender. Bowel sounds are positive. NEUROLOGIC: She is lethargic but awake. She answers most simple questions appropriately. She is oriented to person and place. LABORATORY: CBC is unremarkable. Sodium 140, potassium 4, chloride 104, carbon dioxide 24, BUN 39, creatinine 1.37. AST is slightly elevated today at 43. She has an ammonia of 24. Urine culture is still pending. All other labs and films have been reviewed via the EMR. ASSESSMENT: 1. Acute on chronic renal failure. Her baseline creatinine is approximately 1.8, on admission it was 3.81. Today it is 1.37. 2. Dehydration most likely secondary to poor oral intake as well as her diuretic medications as well as her pain medications and other psychotropic medications which has improved. 3. Urinary tract infection. 4. Hypokalemia. 5. Syncopal episode at home resulting in a same-level fall with negative head CT as well as x-rays. 6. Congestive heart failure of unknown etiology. No echocardiogram to review. 7. History of gastroesophageal reflux disease. 8. History of atrial fibrillation, on metoprolol and Xarelto. 9. Chronic obstructive pulmonary disease in a previous smoker with signs or symptoms of exacerbation. 10. Decreased level of consciousness most likely secondary to poor creatinine clearance with a negative head CT which has improved. PLAN: We will continue present supportive care. I plan for discharge today, although the patient's level of consciousness was poor this morning. It has improved. I have ordered aggressive pulmonary hygiene, including getting the patient up and out of bed. She also is to have EzPAP. I discontinued all of her pain medications. She is to continue on her Celexa and BuSpar, but her Gabapentin, [place], Melatonin and any other medications that could cause an altered mental status have been discontinued. I have also ordered lab as well as a chest x-ray in the morning. I have cautioned her that if she does not continue with her aggressive pulmonary hygiene she could end up with pneumonia. She will need to followup with Dr. Perry, nephrology, as well as a review of her home medications. Will continue to monitor closely and follow as needed. [facility][id number] [facility]
[2019-05-07] MEDS ORDERED: traMADol HCL 50 MG TAB ONE (03:35)
[2019-05-07] MEDS ORDERED: traMADol HCL 50 MG TAB PO ONE (03:36)
[2019-05-07] MEDS: OMEPRAZOLE CAP 20 MG CAP PO SCH (06:08)
--- NOTE | 2019-05-07 07:42 | RAD ---
EXAM DESCRIPTION: Chest,1 View CLINICAL HISTORY: congestion COMPARISON: May 04, 2019. FINDINGS: One view portable frontal view the thorax. No consolidation, effusion or pneumothorax is demonstrated. Heart and mediastinum within normal limits. No acute osseous pathology. IMPRESSION: Negative portable chest. Electronically signed by: Ambrocio Mckeon MD 05/07/2019 7:40 AM TRIM AND BURR OPERATOR
[2019-05-07] MEDS ORDERED: MAGNESIUM SULFATE PREMIX 2GM 2 GM in PREMIX BAG 1 BAG IVPB ONE ×2 (08:00→09:15)
[2019-05-07] MEDS: metOLazone 2.5 MG TAB PO SCH (08:01)
[2019-05-07] MEDS: METOPROLOL TARTRATE 50 MG TAB PO SCH ×2 (08:01→20:13)
[2019-05-07] MEDS: CITALOPRAM HBR 20 MG TAB PO SCH (08:01)
[2019-05-07] MEDS: POTASSIUM CHLORIDE 20 MEQ TAB PO SCH (08:01)
[2019-05-07] MEDS: busPIRone HCL 5 MG TAB PO SCH ×2 (08:01→20:09)
[2019-05-07] MEDS ORDERED: MAGNESIUM SULFATE PREMIX 2GM 50 ML IVPB ONE ×2 (08:08→09:12)
[2019-05-07] MEDS ORDERED: MAGNESIUM SULFATE PREMIX 4GM 4 GM in PREMIX BAG 1 BAG IVPB ONE (08:21)
[2019-05-07] MEDS ORDERED: POTASSIUM CHLORIDE 20 MEQ TAB PO ONE ×2 (08:22→09:14)
[2019-05-07] MEDS: IPRATROPIUM/ALBUTEROL 3 ML VIAL NEB SCH ×4 (08:38→20:09)
[2019-05-07] MEDS: FLUTICASONE FUROATE VILANTEROL INH SCH (08:38)
[2019-05-07] MEDS: FUROSEMIDE INJ 40 MG/4 ML VIAL IV SCH (09:18)
[2019-05-07] MEDS: methylPREDNISolone SODIUM SUC 40 MG/ML VIAL IV SCH ×3 (09:18→21:36)
[2019-05-07] MEDS ORDERED: cefTRIAXone SODIUM 1 GM VIAL ONE (11:00)
[2019-05-07] MEDS ORDERED: SODIUM CHL 0.9% 50ML MIN-BAG+ 50 ML IVPB ONE (11:00)
[2019-05-07] MEDS: RIVAROXABAN 15 MG TAB PO SCH (11:05)
[2019-05-07] MEDS: cefTRIAXone SODIUM 1 GM in SODIUM CHL 0.9% 50ML MIN-BAG+ 50 ML IVPB SCH (11:05)
--- NOTE | 2019-05-07 13:47 | PN ---
SUPERVISING PHYSICIAN: Joss Blackburn MD DATE: 05/07/19 SUBJECTIVE: The patient states she is not short of breath, but she is visibly tachypneic. According to the staff, the patient is in and out of confusion. This was discussed with someone who stays with her at home as well. Apparently she is not normally confused and additionally has not been the same since getting morphine in the Emergency Room several days ago. OBJECTIVE: VITAL SIGNS: Blood pressure 130/77. Heart rate 93. Respiratory rate 22. Temperature 97.8. Oxygen saturation 97%. GENERAL: Ms. Ansari is a 78-year-old female who is in some mild respiratory distress at this time. NEUROLOGIC: The patient is alert, but not answering questions consistently. LUNGS: Some bilateral wheezing. CARDIOVASCULAR: Irregular rate and rhythm. Normal S1, S2. ABDOMEN: Soft. Positive bowel sounds. EXTREMITIES: Lower extremities with no edema. LABORATORY: Normal white count. Hemoglobin 11.2. Chemistry with a low potassium at 3.2, magnesium 1.3. Creatinine is normalized at 1.12. Chest x-ray with no acute cardiopulmonary process interpreted. ASSESSMENT: 1. Acute on chronic renal failure, currently improved. 2. Dehydration, improved. 3. Urinary tract infection, appears to be Pseudomonas from her culture. 4. Hypokalemia and hypomagnesemia with syncopal episode. 5. Congestive heart failure. 6. Chronic obstructive pulmonary disease with current wheezing. 7. Gastroesophageal reflux disease. 8. History of atrial fibrillation, on metoprolol and Xarelto. 10. Altered mental status. PLAN: Electrolytes have been replaced with potassium and magnesium. She is wheezing today, so I am going to give her some Solu-Medrol and see if that improves. Her mentation still seems to be a bit abnormal. She is on Rocephin and according to the sensitivities, that will probably be sufficient, but I am going to go ahead and cover her with additional antibiotics and we can send her home on a stronger medication. We will reevaluate her in the morning to ensure that she is having improvement as well. [facility][id number] [facility]
[2019-05-07] MEDS: KCL 20MEQ/D5 1/2NS 1,000 ML IVS PRN (13:52)
[2019-05-07] MEDS: GABAPENTIN 100 MG CAP PO SCH (20:13)
[2019-05-08] MEDS: KCL 20MEQ/D5 1/2NS 1,000 ML IVS PRN ×3 (01:08→23:48)
[2019-05-08] MEDS: OMEPRAZOLE CAP 20 MG CAP PO SCH (05:46)
[2019-05-08] MEDS: methylPREDNISolone SODIUM SUC 40 MG/ML VIAL IV SCH ×3 (05:46→20:11)
[2019-05-08] MEDS: IPRATROPIUM/ALBUTEROL 3 ML VIAL NEB SCH ×4 (08:58→20:23)
[2019-05-08] MEDS: FLUTICASONE FUROATE VILANTEROL INH SCH (08:58)
[2019-05-08] MEDS ORDERED: CEFEPIME 2 GM VIAL ONE ×2 (09:21→19:09)
[2019-05-08] MEDS ORDERED: SODIUM CHL 0.9% 50ML MIN-BAG+ 50 ML IVPB ONE ×2 (09:21→19:08)
[2019-05-08] MEDS: CEFEPIME 2 GM in SODIUM CHL 0.9% 50ML MIN-BAG+ 50 ML IVPB SCH ×2 (09:23→20:05)
[2019-05-08] MEDS: CITALOPRAM HBR 20 MG TAB PO SCH (09:24)
[2019-05-08] MEDS: POTASSIUM CHLORIDE 20 MEQ TAB PO SCH (09:24)
[2019-05-08] MEDS: busPIRone HCL 5 MG TAB PO SCH ×2 (09:24→20:09)
[2019-05-08] MEDS: metOLazone 2.5 MG TAB PO SCH (09:24)
[2019-05-08] MEDS: METOPROLOL TARTRATE 50 MG TAB PO SCH ×2 (09:24→20:09)
[2019-05-08] MEDS: FUROSEMIDE INJ 40 MG/4 ML VIAL IV SCH (09:59)
[2019-05-08] MEDS: RIVAROXABAN 15 MG TAB PO SCH (11:48)
--- NOTE | 2019-05-08 13:24 | PN ---
SUPERVISING PHYSICIAN: Joss Blackburn MD DATE: 05/08/19 SUBJECTIVE: The patient feels okay today with no shortness of breath. She is not confused this morning as she was yesterday. Our staff states she is alert as well. She is able to tell me who she is, where she is and the appropriate date and day of the week as well. OBJECTIVE: VITAL SIGNS: Blood pressure 101/57. Heart rate 97. Respiratory rate 15. Temperature 98.2. Oxygen saturation 94%. GENERAL: Ms. Ansari is a 78-year-old female who is in no active distress currently. NEUROLOGIC: The patient is alert and oriented. LUNGS: Clear to auscultation bilaterally. CARDIOVASCULAR: Regular rate and rhythm. Normal S1, S2. ABDOMEN: Soft. Positive bowel sounds. GENITOURINARY: Deferred. EXTREMITIES: Lower extremities with no edema. ASSESSMENT: 1. Acute on chronic renal failure, improved. 2. Dehydration, improved. 3. Pseudomonas urinary tract infection. 4. Electrolyte imbalance. 5. Congestive heart failure. 6. Chronic obstructive pulmonary disease. 7. Gastroesophageal reflux disease. 8. History of atrial fibrillation. 10. Altered mental status. PLAN: She seems to be improved after the Solu-Medrol. I will reduce the dosing of that today. Additionally, given her sensitivities, I am going to change her to cefepime as ceftriaxone is actually not on the sensitivity. Although it is the same family of medication, I am going to go ahead and put her on something that is on the sensitivity. I will recheck her labs in the morning as well. #[id number] [facility]
[2019-05-08] MEDS: traMADol HCL 50 MG TAB PO PRN (14:35)
[2019-05-08] MEDS ORDERED: HYDROcodone 5MG/APAP 325MG 1 EA TAB PO ONE (18:36)
[2019-05-08] MEDS ORDERED: ACETAMINOPHEN 325 MG TAB PO PRN (18:37)
[2019-05-08] MEDS: GABAPENTIN 100 MG CAP PO SCH (20:09)
[2019-05-09] MEDS: traMADol HCL 50 MG TAB PO PRN ×4 (00:39→19:34)
[2019-05-09] MEDS: IV SET AND CAP CHANGE INJ INJ SCH (02:13)
[2019-05-09] MEDS: OMEPRAZOLE CAP 20 MG CAP PO SCH (06:02)
[2019-05-09] MEDS ORDERED: SODIUM CHL 0.9% 50ML MIN-BAG+ 50 ML IVPB ONE ×2 (07:51→19:24)
[2019-05-09] MEDS ORDERED: CEFEPIME 2 GM VIAL ONE ×2 (07:52→19:26)
[2019-05-09] MEDS: busPIRone HCL 5 MG TAB PO SCH ×2 (08:07→20:42)
[2019-05-09] MEDS: CITALOPRAM HBR 20 MG TAB PO SCH (08:07)
[2019-05-09] MEDS: metOLazone 2.5 MG TAB PO SCH (08:08)
[2019-05-09] MEDS: FUROSEMIDE INJ 40 MG/4 ML VIAL IV SCH (08:08)
[2019-05-09] MEDS: METOPROLOL TARTRATE 50 MG TAB PO SCH ×2 (08:08→20:42)
[2019-05-09] MEDS: POTASSIUM CHLORIDE 20 MEQ TAB PO SCH (08:08)
[2019-05-09] MEDS: CEFEPIME 2 GM in SODIUM CHL 0.9% 50ML MIN-BAG+ 50 ML IVPB SCH ×2 (08:08→20:36)
[2019-05-09] MEDS: methylPREDNISolone SODIUM SUC 40 MG/ML VIAL IV SCH ×2 (08:13→20:42)
[2019-05-09] MEDS: IPRATROPIUM/ALBUTEROL 3 ML VIAL NEB SCH ×4 (08:46→21:04)
[2019-05-09] MEDS: FLUTICASONE FUROATE VILANTEROL INH SCH (08:46)
[2019-05-09] MEDS: KCL 20MEQ/D5 1/2NS 1,000 ML IVS PRN ×2 (11:02→21:09)
--- NOTE | 2019-05-09 11:42 | PN ---
SUPERVISING PHYSICIAN: Joss Blackburn MD DATE: 05/09/19 SUBJECTIVE: The patient is sitting up in her chair. She is much more alert and oriented today. She actually knows she has had altered mental status over the last week. She does believe it has been her medications and she still feels very weak, but she has no shortness of breath and she was able to walk with physical therapy. She is improving at each therapy session. OBJECTIVE: VITAL SIGNS: Temperature 97.8. Heart rate 105. Blood pressure 120/71. Respiratory rate 18. O2 saturation 94% on room air. RESPIRATORY: A few scattered rhonchi, otherwise clear to auscultation bilaterally. CARDIAC: Regular rate and rhythm. At times, she is slightly tachycardic. GASTROINTESTINAL: Abdomen is soft, nondistended, nontender. Bowel sounds are positive. NEUROLOGIC: Awake, alert and oriented times three. LABORATORY: WBCs 14,200, hemoglobin 10.8, hematocrit 33. She does have a slight left shift on her differential. Electrolytes are basically within normal limits. Her creatinine is up a little at 1.38. All other labs and films have been reviewed via the EMR. ASSESSMENT: 1. Acute on chronic renal failure, improved. 2. Dehydration, improved. 3. Pseudomonas urinary tract infection. 4. Electrolyte imbalance. 5. Congestive heart failure. 6. Chronic obstructive pulmonary disease. 7. Gastroesophageal reflux disease. 8. History of atrial fibrillation. 9. Altered mental status. PLAN: We will continue present supportive care. If she improves tomorrow, she will be discharged from the Acute Care setting and depending on the physical therapy evaluation as well as the patient, she may be re-admitted to Swing Bed status. Otherwise, she will go home with [facility]'s home health and physical therapy department. We will go over all her medications closely since there have been quite a few changes at this hospital stay and she agrees as she does not want to get into that kind of trouble again. I have ordered some basic lab for in the morning and hopefully she can be discharged tomorrow. #[id number] [facility]
[2019-05-09] MEDS: RIVAROXABAN 15 MG TAB PO SCH (12:37)
[2019-05-09] MEDS: GABAPENTIN 100 MG CAP PO SCH (20:42)
[2019-05-10] MEDS: OMEPRAZOLE CAP 20 MG CAP PO SCH (05:47)
[2019-05-10] MEDS: traMADol HCL 50 MG TAB PO PRN (06:01)
[2019-05-10 06:18] VITALS: BP 122/74; TEMP 97.9
[2019-05-10] MEDS ORDERED: SODIUM CHL 0.9% 50ML MIN-BAG+ 50 ML IVPB ONE (07:56)
[2019-05-10] MEDS ORDERED: CEFEPIME 2 GM VIAL ONE (07:58)
[2019-05-10] MEDS: CEFEPIME 2 GM in SODIUM CHL 0.9% 50ML MIN-BAG+ 50 ML IVPB SCH (08:02)
[2019-05-10] MEDS: KCL 20MEQ/D5 1/2NS 1,000 ML IVS PRN (08:02)
[2019-05-10] MEDS: methylPREDNISolone SODIUM SUC 40 MG/ML VIAL IV SCH (08:03)
[2019-05-10] MEDS: METOPROLOL TARTRATE 50 MG TAB PO SCH (08:03)
[2019-05-10] MEDS: CITALOPRAM HBR 20 MG TAB PO SCH (08:03)
[2019-05-10] MEDS: metOLazone 2.5 MG TAB PO SCH (08:03)
[2019-05-10] MEDS: POTASSIUM CHLORIDE 20 MEQ TAB PO SCH (08:04)
[2019-05-10] MEDS: busPIRone HCL 5 MG TAB PO SCH (08:04)
[2019-05-10] MEDS: IPRATROPIUM/ALBUTEROL 3 ML VIAL NEB SCH (08:28)
[2019-05-10] MEDS: FLUTICASONE FUROATE VILANTEROL INH SCH (08:28)
[2019-05-10] MEDS: FUROSEMIDE INJ 40 MG/4 ML VIAL IV SCH (09:18)
[2019-05-10 10:12] VITALS: O2SAT 95
--- NOTE | 2019-05-10 13:45 | DS ---
SUPERVISING PHYSICIAN: Joss Blackburn MD DISCHARGE DIAGNOSIS: 1. Acute on chronic renal failure, improved. 2. Dehydration, improved. 3. Pseudomonas urinary tract infection. 4. Electrolyte imbalance. 5. Congestive heart failure. 6. Chronic obstructive pulmonary disease. 7. Gastroesophageal reflux disease. 8. History of atrial fibrillation. 9. Altered mental status. HISTORY OF PRESENT ILLNESS: This is a 78-year-old female patient who fell at home on the day prior to admission. She was not sure how she fell but she was standing in her kitchen and then she slumped to the floor. She denied any loss of consciousness. She also said she did not trip. She did bump the back of her head slightly as well as she had pain to her left ribs and left hip. She has a history of congestive heart failure and chronic kidney disease. She cannot remember her etl informatica developer's name and she has not seen nephrology for quite some time. In the Emergency Room, her initial vital signs were temperature of 98.4 with a heart rate of 73. It went up later to 99. Her blood pressures were slightly on the low side while in the Emergency Room with a reading of 92/60 as well as a 94/58, respiratory rate was 18 oxygen saturation was 93%. Labs were done and she had a white count of 12,200. The remainder of her CBC was unremarkable. Coagulations were within normal limits. Initial troponin was 0.03 with a sodium of 137, potassium 2.8, chloride 92, carbon dioxide 26. BUN was 85 and creatinine was 3.71. Her baseline creatinine appears to be 1.8. Glucose 155, serum osmolality 302.8, magnesium 1.9. Urinalysis showed a small amount of urine blood, a small amount of urine leukocyte esterase, 5 to 10 urine RBCs, too numerous to count urine WBCs and 3+ urine bacteria. Her cervical spine CT showed diffuse degenerative changes without acute fracture. CT of her head showed 1) There is no evidence of acute intracranial pathology, no significant change from prior study. 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 Left hip x-ray showed no acute osseous findings. The pelvis x-ray shows no acute osseous findings. Rib x-rays shows no definite fracture. Chest x-ray shows clear lungs. In the Emergency Room, she was given some fluids as well as some potassium and the hospitalist was called for admission. HOSPITAL COURSE: The patient was placed in the hospital. She received judicious fluids. Her creatinine slowly improved. Initially, her diuretics were held. Later, her Lasix was restarted at a lower dose as well as a lower dose of her Zaroxolyn. Her urinary tract was initially treated with Rocephin and a culture was done. She also had to have her potassium replaced. Over the next several days, although her creatinine improved, her mental status alternated between being fairly alert and oriented to obtunded and having difficulty being assisted up to the chair. She refused to do any of her pulmonary hygiene. She constantly complained of pain and over the next several days, her medications were adjusted to the point where any kind of medications that could alter her consciousness were discontinued including her pain medications, her sleeping pill and her Viibryd. Her BuSpar was continued. Her Celexa was continued. Her gabapentin was reduced to 100 mg at bedtime. Again, over the next 3 to 4 days, she alternated one day with being very awake to being obtunded. Three days ago, because she had not participate in pulmonary hygiene, the patient was assisted up to the chair 3 to 4 times daily. She also given some aggressive pulmonary hygiene. She initially had an exacerbation of her chronic obstructive pulmonary disease. She was started on some steroids and those were titrated off to oral prednisone. She is very weak. Physical Therapy evaluated her and felt that she would benefit from Swing Bed. Her urine culture did come back growing Pseudomonas so we changed her to cefepime. At this point, she will be discharged from the Acute Care setting to Swing Bed status. We will continue with her cefepime until she is discharged from the hospital. LABORATORY: Her initial WBCs were 12.2 and went down as low as 8.3. Today, the are 12.1. Hemoglobin and hematocrit are stable and have run between 10.6 and 31.7 and today are 11.1 and 34. She has required potassium supplementation several times as well as some magnesium supplementation. Today, her electrolytes are within normal limits with sodium 137, potassium 4.2, chloride 101, carbon dioxide 23, BUN 36 and her creatinine is 1.9. Her admitting creatinine was 3.71 and got as high as 3.81. MICROBIOLOGY: Her urine culture grew out Pseudomonas aeruginosa and is sensitive to cefepime. RADIOLOGY: During her stay, she had several head CTs due to her altered mental status and they were all negative for any acute processes. Her final chest x- ray was negative. DISCHARGE PLAN: The patient will be discharged from the Acute Care setting to Swing Bed status. We will continue her present medications including her cefepime and all of her medications that were discontinued will be discontinued in her Swing Bed status. The new medications have been re-started. She will continue with patient for strengthening and conditioning. At the time of discharge, she will need followup with her primary care physician, Dr. Cha Diaz, and she will also need a followup with Dr. Perry, airplane patroller. DISCHARGE MEDICATIONS: 1. Citalopram. 2. Potassium. 3. DuoNeb. 4. BuSpar. 5. Metolazone. 6. Metoprolol tartrate. 7. Xarelto. 8. Cefepime. 9. Furosemide. 10. Gabapentin 100 mg at bedtime. 11. Omeprazole. 12. Prednisone. 13. Tramadol. #[id number] [facility]
== END 2019-05-10 10:25 | disposition swing bed (61) | DRG 683 ==
LOC: ER 22:24 → OBSVTOIN 05-03 01:47 → MS 05-03 01:47
PROVIDERS: ADMIT Nurse Practitioner Family; ATTEND Nurse Practitioner Acute Care
DX: N17.9 Acute kidney failure, unspecified (principal); N39.0 Urinary tract infection, site not specified; J44.1 Chronic obstructive pulmonary disease with (acute) exacerbation; T50.2X5A Adverse effect of carbonic-anhydrase inhibitors, benzothiadiazides and other diuretics, initial encounter; E86.0 Dehydration; B96.5 Pseudomonas (aeruginosa) (mallei) (pseudomallei) as the cause of diseases classified elsewhere; E87.6 Hypokalemia; E83.42 Hypomagnesemia; N18.9 Chronic kidney disease, unspecified; I50.9 Heart failure, unspecified; K21.9 Gastro-esophageal reflux disease without esophagitis; I48.91 Unspecified atrial fibrillation; I70.213 Atherosclerosis of native arteries of extremities with intermittent claudication, bilateral legs; W18.30XA Fall on same level, unspecified, initial encounter; Y92.000 Kitchen of unspecified non-institutional (private) residence as the place of occurrence of the external cause; Z79.01 Long term (current) use of anticoagulants; Z95.820 Peripheral vascular angioplasty status with implants and grafts; Z79.891 Long term (current) use of opiate analgesic; Z88.1 Allergy status to other antibiotic agents; Z88.8 Allergy status to other drugs, medicaments and biological substances; Z87.891 Personal history of nicotine dependence; Z79.899 Other long term (current) drug therapy

== ENCOUNTER 2019-05-10 10:25 | Inpatient (IN) | payer MEDICARE ==
[2019-05-10] MEDS ORDERED: MAGNESIUM HYDROXIDE 30 ML UD PO PRN (11:38)
[2019-05-10] MEDS ORDERED: SODIUM PHOS/BIPHOS ENEMA ADULT 133 ML BTTL PR PRN (11:38)
[2019-05-10] MEDS ORDERED: SODIUM CHLORIDE 0.9% (FLUSH) 10 ML SYG IV PRN (11:38)
[2019-05-10] MEDS ORDERED: CEFEPIME 2 GM VIAL IVPB SCH ×2 (12:00→20:30)
[2019-05-10] MEDS: IPRATROPIUM/ALBUTEROL 3 ML VIAL INH SCH ×3 (12:57→20:12)
[2019-05-10] MEDS: IV SET AND CAP CHANGE INJ INJ SCH (13:31)
[2019-05-10] MEDS: traMADol HCL 50 MG TAB PO PRN (17:56)
--- NOTE | 2019-05-10 18:41 | HP ---
SUPERVISING PHYSICIAN: Joss Sy MD HISTORY OF PRESENT ILLNESS: This is a 78-year-old female patient who fell at home on the day prior to her acute care admission. She was not sure how she fell but she was standing in her kitchen and then she slumped to the floor. She denied any loss of consciousness. She also said she did not trip. She did bump the back of her head slightly as well as she had pain to her left ribs and left hip. She has a history of congestive heart failure and chronic kidney disease. 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 In the Emergency Room, her initial vital signs were temperature of 98.4 with a heart rate of 73. It went up later to 99. Her blood pressures were slightly on the low side while in the Emergency Room with a reading of 92/60 as well as a 94/58, respiratory rate was 18 oxygen saturation was 93%. Labs were done and she had a white count of 12,200. The remainder of her CBC was unremarkable. Coagulations were within normal limits. Initial troponin was 0.03 with a sodium of 137, potassium 2.8, chloride 92, carbon dioxide 26. BUN was 85 and creatinine was 3.71. Her baseline creatinine appears to be 1.8. Glucose 155, serum osmolality 302.8, magnesium 1.9. Urinalysis showed a small amount of urine blood, a small amount of urine leukocyte esterase, 5 to 10 urine RBCs, too numerous to count urine WBCs and 3+ urine bacteria. Her cervical spine CT showed diffuse degenerative changes without acute fracture. CT of her head showed 1) There is no evidence of acute intracranial pathology, no significant change from prior study. 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 Left hip x-ray showed no acute osseous findings. The pelvis x-ray shows no acute osseous findings. Rib x-rays shows no definite fracture. Chest x-ray shows clear lungs. In the Emergency Room, she was given some fluids as well as some potassium and the hospitalist was called for admission. HOSPITAL COURSE: The patient was placed in the hospital. She received judicious fluids. Her creatinine slowly improved. Initially, her diuretics were held. Later, her Lasix was restarted at a lower dose as well as a lower dose of her Zaroxolyn. Her urinary tract was initially treated with Rocephin and a culture was done. She also had to have her potassium replaced. Over the next several days, although her creatinine improved, her mental status alternated between being fairly alert and oriented to obtunded and having difficulty being assisted up to the chair. She refused to do any of her pulmonary hygiene. She constantly complained of pain and over the next several days, her medications were adjusted to the point where any kind of medications that could alter her consciousness were discontinued including her pain medications, her sleeping pill and her Viibryd. Her BuSpar was continued. Her Celexa was continued. Her gabapentin was reduced to 100 mg at bedtime. Again, over the next 3 to 4 days, she alternated one day with being very awake to being obtunded. Three days ago, because she had not participate in pulmonary hygiene, the patient was assisted up to the chair 3 to 4 times daily. She also given some aggressive pulmonary hygiene. She initially had an exacerbation of her chronic obstructive pulmonary disease. She was started on some steroids and those were titrated off to oral prednisone. She is very weak. Physical Therapy evaluated her and felt that she would benefit from Swing Bed. Her urine culture did come back growing Pseudomonas so we changed her to cefepime. She was discharged from the acute care setting and will now be admitted to Swing Bed for strengthening and condition as well as IV antibiotic therapy. PAST MEDICAL HISTORY: 1. Atrial fibrillation presently on Xarelto. 2. Gastroesophageal reflux disease. 3. Chronic obstructive pulmonary disease. 4. Congestive heart failure of unknown etiology with no current echocardiograms to review. 5. History of cervical cancer. 6. Atherosclerosis with claudication and stent placement of the femoral arteries. 7. Chronic kidney disease. PAST SURGICAL HISTORY: 1. Hemorrhoidectomy. 2. Bilateral femoral stents. 3. Hysterectomy. 4. Appendectomy. 5. Cervical cone biopsy. CURRENT MEDICATIONS: 1. Formamide. 2. Metolazone. 3. BuSpar. 4. Citalopram. 5. Bred Ellipta. 6. Gabapentin. 7. Hydrocodone. 8. Duoneb. 9. Melatonin. 10. Metoprolol Succinate. 11. Potassium chloride. 12. Xarelto. 13. Tizanidine. 14. Viibryd. ALLERGIES: 1. Erythromycin. 2. Rifampin. 3. Statin drugs. FAMILY HISTORY: Positive for coronary artery disease, hypertension and cancer. SOCIAL HISTORY: She lives in [place] with her son. 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 She quit smoking approximately 6 years ago and she denies any alcohol or illicit drug use. REVIEW OF SYSTEMS: Negative except for weakness and deconditioning. PHYSICAL EXAMINATION: VITAL SIGNS: Temperature 97.8, heart rate 88, blood pressure 109/72, respiratory rate 22, oxygen saturation 93% on room air. GENERAL: This is a 78 year-old female patient lying in her hospital bed. She is in no acute distress. HEENT: Normocephalic and atraumatic. Pupils are equal and reactive. Oropharynx is clear. NECK: Supple without mass. RESPIRATORY: Essentially clear to auscultation bilaterally. She does have a few scattered rhonchi in the apices. CHEST: There is equal rise and fall of the chest with inspiration and expiration. CARDIOVASCULAR: Regular rate and rhythm. ABDOMEN: Soft, nondistended, non-tender. Bowel sounds are positive. EXTREMITIES: No cyanosis, clubbing, or edema. NEUROLOGIC: She is awake, alert, and oriented x3. Cranial nerves II through XII are grossly intact. LABORATORY;: There are no labs or films to report at this time. ASSESSMENT: 1. Deconditioning due to extensive illness and long hospital stay requiring physical therapy for strengthening and conditioning. 2. Urinary tract infection growing Pseudomonas auriginous. He has been on Cefepime and will continue in Swing Bed. 3. Congestive heart failure of unknown etiology. 4. Chronic obstructive pulmonary disease with mild exacerbation that has resolved. 5. Gastroesophageal reflux disease. 6. History of atrial fibrillation. 7. Recent mental status changes, most likely due to her acute renal failure. 8. Chronic renal failure. PLAN: The patient has been admitted to the hospital for Swing Bed. She will continue with her strengthening and conditioning with physical therapy. She will also continue her on her Cefepime IV, her home medications with multiple changes have been restarted. On discharge, she will need to see her PCP, Dr. Diaz in [place] as well as Dr. Perry in consultation. We will continue to monitor her closely and follow as needed. #[id number] [facility]
[2019-05-10] MEDS ORDERED: SODIUM CHL 0.9% 50ML MIN-BAG+ 50 ML IVPB ONE (19:33)
[2019-05-10] MEDS: SODIUM CHLORIDE 0.9% (FLUSH) 10 ML SYG IV SCH (20:31)
[2019-05-10] MEDS: busPIRone HCL 5 MG TAB PO SCH (20:32)
[2019-05-10] MEDS: METOPROLOL TARTRATE 50 MG TAB PO SCH (20:32)
[2019-05-10] MEDS: GABAPENTIN 100 MG CAP PO SCH (20:32)
[2019-05-10] MEDS: ACETAMINOPHEN 500 MG TAB PO PRN (20:36)
[2019-05-10] MEDS: IPRATROPIUM/ALBUTEROL 3 ML VIAL NEB PRN (22:20)
[2019-05-10] MEDS ORDERED: CYCLOBENZAPRINE HCL 10 MG TAB PO ONE (23:39)
[2019-05-11] MEDS: IPRATROPIUM/ALBUTEROL 3 ML VIAL NEB PRN (05:15)
[2019-05-11] MEDS: ACETAMINOPHEN 500 MG TAB PO PRN ×2 (05:25→12:57)
[2019-05-11] MEDS: OMEPRAZOLE CAP 20 MG CAP PO SCH (07:00)
[2019-05-11] MEDS ORDERED: SODIUM CHL 0.9% 50ML MIN-BAG+ 50 ML IVPB ONE ×2 (07:48→19:21)
[2019-05-11] MEDS: CEFEPIME 2 GM in SODIUM CHL 0.9% 50ML MIN-BAG+ 50 ML IVPB SCH ×2 (07:57→20:08)
[2019-05-11] MEDS: RIVAROXABAN 15 MG TAB PO SCH (08:03)
[2019-05-11] MEDS: metOLazone 2.5 MG TAB PO SCH (08:03)
[2019-05-11] MEDS: CITALOPRAM HBR 20 MG TAB PO SCH (08:03)
[2019-05-11] MEDS: SODIUM CHLORIDE 0.9% (FLUSH) 10 ML SYG IV SCH ×2 (08:03→20:08)
[2019-05-11] MEDS: FUROSEMIDE 40 MG TAB PO SCH (08:03)
[2019-05-11] MEDS: predniSONE 10 MG TAB PO SCH (08:03)
[2019-05-11] MEDS: busPIRone HCL 5 MG TAB PO SCH ×2 (08:03→20:08)
[2019-05-11] MEDS: POTASSIUM CHLORIDE 20 MEQ TAB PO SCH (08:03)
[2019-05-11] MEDS: DOCUSATE SODIUM 100 MG CAP PO SCH (08:03)
[2019-05-11] MEDS: METOPROLOL TARTRATE 50 MG TAB PO SCH ×2 (08:03→20:08)
[2019-05-11] MEDS: IPRATROPIUM/ALBUTEROL 3 ML VIAL INH SCH ×4 (08:45→20:34)
[2019-05-11] MEDS ORDERED: METOLAZONE 2.5 MG PO SCH (09:00)
[2019-05-11] MEDS: CYCLOBENZAPRINE HCL 5 MG TAB PO PRN (15:27)
[2019-05-11] MEDS ORDERED: CEFEPIME 2 GM VIAL ONE (19:22)
[2019-05-11] MEDS: GABAPENTIN 100 MG CAP PO SCH (20:08)
[2019-05-11] MEDS: ACETAMINOPHEN W/COD #3 TAB 1 EA TAB PO PRN (20:37)
[2019-05-12] MEDS: ACETAMINOPHEN W/COD #3 TAB 1 EA TAB PO PRN ×4 (05:02→20:51)
[2019-05-12] MEDS: OMEPRAZOLE CAP 20 MG CAP PO SCH (06:00)
[2019-05-12] MEDS ORDERED: SODIUM CHL 0.9% 50ML MIN-BAG+ 50 ML IVPB ONE ×2 (07:44→19:33)
[2019-05-12] MEDS ORDERED: CEFEPIME 2 GM VIAL ONE ×2 (07:45→19:34)
[2019-05-12] MEDS: metOLazone 2.5 MG TAB PO SCH (07:58)
[2019-05-12] MEDS: CITALOPRAM HBR 20 MG TAB PO SCH (07:58)
[2019-05-12] MEDS: predniSONE 10 MG TAB PO SCH (07:58)
[2019-05-12] MEDS: METOPROLOL TARTRATE 50 MG TAB PO SCH ×2 (07:58→20:51)
[2019-05-12] MEDS: busPIRone HCL 5 MG TAB PO SCH ×2 (07:58→20:51)
[2019-05-12] MEDS: FUROSEMIDE 40 MG TAB PO SCH (07:58)
[2019-05-12] MEDS: RIVAROXABAN 15 MG TAB PO SCH (07:58)
[2019-05-12] MEDS: DOCUSATE SODIUM 100 MG CAP PO SCH (07:58)
[2019-05-12] MEDS: POTASSIUM CHLORIDE 20 MEQ TAB PO SCH (07:58)
[2019-05-12] MEDS: CEFEPIME 2 GM in SODIUM CHL 0.9% 50ML MIN-BAG+ 50 ML IVPB SCH ×2 (08:00→20:49)
[2019-05-12] MEDS: IPRATROPIUM/ALBUTEROL 3 ML VIAL INH SCH ×4 (08:24→20:18)
[2019-05-12] MEDS: SODIUM CHLORIDE 0.9% (FLUSH) 10 ML SYG IV SCH ×2 (08:26→20:49)
[2019-05-12] MEDS: NYSTATIN SUSPENSION 500,000/5 ML UD MT SCH ×4 (08:26→20:51)
[2019-05-12] MEDS: BREO INH SCH (08:48)
[2019-05-12] MEDS ORDERED: FLUCONAZOLE 150 MG TAB PO ONE (10:17)
[2019-05-12] MEDS: CYCLOBENZAPRINE HCL 5 MG TAB PO PRN ×2 (15:48→22:25)
[2019-05-12] MEDS: GABAPENTIN 100 MG CAP PO SCH (20:51)
[2019-05-13] MEDS: ACETAMINOPHEN W/COD #3 TAB 1 EA TAB PO PRN ×3 (05:48→19:47)
[2019-05-13] MEDS: CYCLOBENZAPRINE HCL 5 MG TAB PO PRN ×3 (05:48→19:47)
[2019-05-13] MEDS: OMEPRAZOLE CAP 20 MG CAP PO SCH (05:48)
[2019-05-13] MEDS ORDERED: SODIUM CHL 0.9% 50ML MIN-BAG+ 50 ML IVPB ONE ×2 (07:36→19:08)
[2019-05-13] MEDS ORDERED: CEFEPIME 2 GM VIAL ONE ×2 (07:37→19:09)
[2019-05-13] MEDS: CEFEPIME 2 GM in SODIUM CHL 0.9% 50ML MIN-BAG+ 50 ML IVPB SCH ×2 (07:53→19:46)
[2019-05-13] MEDS: RIVAROXABAN 15 MG TAB PO SCH (07:58)
[2019-05-13] MEDS: POTASSIUM CHLORIDE 20 MEQ TAB PO SCH (07:58)
[2019-05-13] MEDS: DOCUSATE SODIUM 100 MG CAP PO SCH (07:58)
[2019-05-13] MEDS: predniSONE 10 MG TAB PO SCH (07:58)
[2019-05-13] MEDS: busPIRone HCL 5 MG TAB PO SCH ×2 (07:58→20:36)
[2019-05-13] MEDS: NYSTATIN SUSPENSION 500,000/5 ML UD MT SCH ×4 (07:58→20:37)
[2019-05-13] MEDS: METOPROLOL TARTRATE 50 MG TAB PO SCH ×2 (07:58→20:37)
[2019-05-13] MEDS: metOLazone 2.5 MG TAB PO SCH (07:59)
[2019-05-13] MEDS: CITALOPRAM HBR 20 MG TAB PO SCH (07:59)
[2019-05-13] MEDS: SODIUM CHLORIDE 0.9% (FLUSH) 10 ML SYG IV SCH ×2 (08:01→20:37)
[2019-05-13] MEDS: FUROSEMIDE 40 MG TAB PO SCH (08:02)
[2019-05-13] MEDS: BREO INH SCH (08:45)
[2019-05-13] MEDS: IPRATROPIUM/ALBUTEROL 3 ML VIAL INH SCH ×4 (08:45→20:33)
[2019-05-13] MEDS: IV SET AND CAP CHANGE INJ INJ SCH (13:34)
[2019-05-13] MEDS: GABAPENTIN 100 MG CAP PO SCH (20:36)
[2019-05-14] MEDS: ACETAMINOPHEN W/COD #3 TAB 1 EA TAB PO PRN ×3 (00:13→12:34)
[2019-05-14] MEDS: CYCLOBENZAPRINE HCL 5 MG TAB PO PRN (02:43)
[2019-05-14] MEDS: OMEPRAZOLE CAP 20 MG CAP PO SCH (06:02)
[2019-05-14] MEDS ORDERED: SODIUM CHL 0.9% 50ML MIN-BAG+ 50 ML IVPB ONE (07:10)
[2019-05-14] MEDS ORDERED: CEFEPIME 2 GM VIAL ONE (07:11)
[2019-05-14] MEDS: CEFEPIME 2 GM in SODIUM CHL 0.9% 50ML MIN-BAG+ 50 ML IVPB SCH (08:00)
[2019-05-14] MEDS: metOLazone 2.5 MG TAB PO SCH (08:01)
[2019-05-14] MEDS: predniSONE 10 MG TAB PO SCH (08:01)
[2019-05-14] MEDS: METOPROLOL TARTRATE 50 MG TAB PO SCH (08:01)
[2019-05-14] MEDS: FUROSEMIDE 40 MG TAB PO SCH (08:01)
[2019-05-14] MEDS: POTASSIUM CHLORIDE 20 MEQ TAB PO SCH (08:01)
[2019-05-14] MEDS: CITALOPRAM HBR 20 MG TAB PO SCH (08:01)
[2019-05-14] MEDS: DOCUSATE SODIUM 100 MG CAP PO SCH (08:01)
[2019-05-14] MEDS: RIVAROXABAN 15 MG TAB PO SCH (08:01)
[2019-05-14] MEDS: NYSTATIN SUSPENSION 500,000/5 ML UD MT SCH (08:02)
[2019-05-14] MEDS: SODIUM CHLORIDE 0.9% (FLUSH) 10 ML SYG IV SCH (08:02)
[2019-05-14] MEDS: busPIRone HCL 5 MG TAB PO SCH (08:02)
[2019-05-14] MEDS: traMADol HCL 50 MG TAB PO PRN (08:06)
[2019-05-14] MEDS: IPRATROPIUM/ALBUTEROL 3 ML VIAL INH SCH (08:48)
[2019-05-14] MEDS: BREO INH SCH (08:48)
[2019-05-14 10:57] VITALS: BP 125/78; TEMP 97.9; O2SAT 96
[2019-05-15] MEDS: IPRATROPIUM/ALBUTEROL 3 ML VIAL INH SCH (11:47)
--- NOTE | 2019-05-17 16:06 | DS ---
SUPERVISING PHYSICIAN: Joss Sy MD ADMISSION DIAGNOSES: 1. Deconditioning due to extensive illness and long hospital stay requiring physical therapy for strengthening and conditioning. 2. Urinary tract infection growing Pseudomonas auriginous. He has been on Cefepime and will continue in Swing Bed. 3. Congestive heart failure of unknown etiology. 4. Chronic obstructive pulmonary disease with mild exacerbation that has resolved. 5. Gastroesophageal reflux disease. 6. History of atrial fibrillation. 7. Recent mental status changes, most likely due to her acute renal failure. 8. Chronic renal failure. DISCHARGE DIAGNOSES: 1. Deconditioning due to extensive illness and long hospital stay requiring physical therapy for strengthening and conditioning. 2. Urinary tract infection growing Pseudomonas auriginous. He has been on Cefepime and will continue in Swing Bed. 3. Congestive heart failure of unknown etiology. 4. Chronic obstructive pulmonary disease with mild exacerbation that has resolved. 5. Gastroesophageal reflux disease. 6. History of atrial fibrillation. 7. Recent mental status changes, most likely due to her acute renal failure. 8. Chronic renal failure. BRIEF HOSPITALIZATION: Note that the patient was admitted to acute care initially. She received judicious fluids. Her creatinine slowly improved. Initially, her diuretics were held. Later, her Lasix was restarted at a lower dose as well as a lower dose of her Zaroxolyn. Her urinary tract was initially treated with Rocephin and a culture was done. She also had to have her potassium replaced. Over the next several days, although her creatinine improved, her mental status alternated between being fairly alert and oriented to obtunded and having difficulty being assisted up to the chair. She refused to do any of her pulmonary hygiene. She constantly complained of pain and over the next several days, her medications were adjusted to the point where any kind of medications that could alter her consciousness were discontinued including her pain medications, her sleeping pill and her Viibryd. Her BuSpar was continued. Her Celexa was continued. Her gabapentin was reduced to 100 mg at bedtime. Again, over the next 3 to 4 days, she alternated one day with being very awake to being obtunded. Three days ago, because she had not participate in pulmonary hygiene, the patient was assisted up to the chair 3 to 4 times daily. She also given some aggressive pulmonary hygiene. She initially had an exacerbation of her chronic obstructive pulmonary disease. She was started on some steroids and those were titrated off to oral prednisone. She is very weak. Physical Therapy evaluated her and felt that she would benefit from Swing Bed. Her urine culture did come back growing Pseudomonas so we changed her to cefepime. She was discharged from acute care and admitted to Swing Bed for strengthening, conditioning and IV antibiotic therapy. LABORATORY;: There were no laboratory studies and no radiology studies while on Swing Bed. HOSPITAL COURSE: Ms. Ansari was admitted to Swing Bed. She was continued on Cefepime for urinary tract infection and was started on physical therapy. She progressed well, had no complications. It was felt that she had continued a total course of 10 days on antibiotics on the day of discharge which was 05/15 and was doing well enough with physical therapy to discharge home. PLAN: Nicki was discharged out of Swing Bed on 05/14/19 with instructions to followup with her primary care provider, Nyasia Diaz. She was to resume her home medications as instructed and told to return to the hospital should she have any concerning symptoms. ACTIVITY: Continue activity as tolerated per physical therapy. DIET: As tolerated. PRESCRIPTIONS ON DISCHARGE: 1. Refill of her Lasix 40 mg daily, #0. 2. Tylenol No. 3 for pain control, 1 every 4 hours as needed, #50, no refills. No other other antibiotics were continued as she had a 10-day course of Cefepime. All other medications prior to hospitalization were continued as per Swing Bed. DISPOSITION: The patient is discharged home. CONDITION ON DISCHARGE: Stable and improved. #[id number] [facility]
== END 2019-05-14 12:53 | disposition home or self-care (01) | DRG 690 ==
LOC: MS 10:25
PROVIDERS: ADMIT Nurse Practitioner Acute Care; ATTEND Nurse Practitioner Family
DX: N39.0 Urinary tract infection, site not specified (principal); R53.1 Weakness; I50.9 Heart failure, unspecified; J44.9 Chronic obstructive pulmonary disease, unspecified; K21.9 Gastro-esophageal reflux disease without esophagitis; I48.91 Unspecified atrial fibrillation; N18.9 Chronic kidney disease, unspecified; B96.5 Pseudomonas (aeruginosa) (mallei) (pseudomallei) as the cause of diseases classified elsewhere; I70.213 Atherosclerosis of native arteries of extremities with intermittent claudication, bilateral legs; Z79.01 Long term (current) use of anticoagulants; Z95.820 Peripheral vascular angioplasty status with implants and grafts; Z85.41 Personal history of malignant neoplasm of cervix uteri; Z88.1 Allergy status to other antibiotic agents; Z88.8 Allergy status to other drugs, medicaments and biological substances; Z87.891 Personal history of nicotine dependence; Z79.899 Other long term (current) drug therapy

== ENCOUNTER 2019-06-04 20:19 | Inpatient (IN) | payer MEDICARE ==
[2019-06-04] MEDS ORDERED: SODIUM CHLORIDE 0.9% (FLUSH) 10 ML SYG IV PRN (20:30)
--- NOTE | 2019-06-04 20:32 | ED.PDOC ---
History of Present Illness - General Time Seen by Provider: 06/04/19 20:29 Source: family - History of Present Illness Initial Comments: 78 yo female with PMH of HTN, CHF, COPD who is bib son from home for cc of altered mental status and fever. Reports she has been on Macrobid x4 days for UTI. This morning she was having some trouble urinating. Son states this evening when he went to check on her she seems slower to respond than usual and she felt warm like she may be running fever. Here pt complains of nausea without emesis. Also reports ongoing wet cough for past 2-3 weeks which is largely unchanged and minimally productive. Reports feeling generally weak and fatigued for past couple days, worse today. Reports mild dyspnea and denies any chest pain, abd pain, diarrhea. Allergies/Adverse Reactions: Allergies Rosuvastatin [From Crestor] Allergy (Severe, Verified 05/10/19 11:10) Rash Erythromycin Allergy (Verified 05/10/19 11:10) Nausea Penicillins Allergy (Verified 05/10/19 11:10) Pentazocine [From Talwin Compound] Allergy (Verified 05/10/19 11:10) Rash Rifampin Allergy (Verified 05/10/19 11:10) Rash Atorvastatin [From Lipitor] Adverse Reaction (Intermediate, Verified 05/10/19 11:10) Other Causes muscle pain Ketorolac Tromethamine [From Toradol] Adverse Reaction (Intermediate, Verified 05/10/19 11:10) Benzodiazepines Adverse Reaction (Verified 05/10/19 11:10) Other Some benzos make patient "ZONED out for days" Home Medications: Ambulatory Orders RX: Ipratropium/Albuterol [Duoneb] 3 ml NEB Q4HR PRN 03/04/17 RX: metOLazone [Zaroxolyn] 2.5 mg PO DAILY PRN 09/25/18 RX: Rivaroxaban [Xarelto] 15 mg PO BEDTIME 05/02/19 RX: Gabapentin [Neurontin] 100 mg PO BEDTIME cap 05/10/19 RX: Budesonide (Inhalation) [Pulmicort] 1 mg IN BID PRN 05/11/19 RX: Cholecalciferol [Vitamin D] 1,000 unit PO DAILY 05/11/19 RX: Ferrous Sulfate [Iron] 65 mg PO DAILY 05/11/19 RX: Fluticasone Furoate-Vilanterol [Breo Ellipta 100-25 Mcg/INH] 1 puff INH DAILY 05/11/19 RX: Furosemide Tab [Lasix Tab] 40 mg PO DAILY #30 tab 05/14/19 Acetaminophen W/ Codeine [Tylenol W/ CODEINE #3] 1 - 2 ea PO Q4H PRN 06/05/19 Albuterol Sulfate [Ventolin Hfa] 108 mcg IN PRN PRN 06/05/19 Cyclobenzaprine HCl [Flexeril] 5 mg PO BEDTIME 06/05/19 Nitrofurantoin Monohydrate Mac [Macrobid] 100 mg PO BID 06/05/19 Ondansetron Odt [Zofran ODT] 8 mg PO Q6HRS PRN 06/05/19 Pyridoxine HCl [Vitamin B-6] 100 mg PO DAILY 06/05/19 RX: Citalopram Hydrobromide 40 mg PO DAILY 06/05/19 RX: Fenofibrate 145 mg PO DAILY 06/05/19 RX: Metoprolol Tartrate 25 mg PO BID 06/05/19 RX: Omeprazole [Prilosec Cap] 20 mg PO BID 06/05/19 RX: Sucralfate 1 gm PO ACHS 06/05/19 Theophylline [Fam-24] 150 mg PO DAILY@0700 06/05/19 Theophylline [Fam-24] 300 mg PO BEDTIME 06/05/19 Review of Systems - Review of Systems Review of Systems: 06/04/19 21:11 as per HPI All other Systems: Reviewed and Negative Past Medical History (General) - Patient Medical History Hx Seizures: No Hx Stroke: No Hx Asthma: No Hx of COPD: Yes Hx Cardiac Disorders: Yes - a fib Hx Congestive Heart Failure: Yes Hx Pacemaker: No Hx Hypertension: Yes Hx Diabetes: No Hx Gastroesophageal Reflux: Yes - microcytic colitis, hitatal hernia, GI bleed Hx Cancer: No Hx MRSA: No - Vaccination History Hx Tetanus, Diphtheria Vaccination: No Hx Influenza Vaccination: Yes Hx Pneumococcal Vaccination: Yes - Social History Hx Tobacco Use: Yes Hx Chewing Tobacco Use: No Hx Alcohol Use: No Hx Substance Use: No Hx Substance Use Treatment: No Hx Depression: No Hx Physical Abuse: No Hx Emotional Abuse: No Hx Suspected Abuse: No - Female History Patient : No Family Medical History - Family History Father Family History: No Known Living Status: Hx Cardiac Disease: Yes Hx Family;Other: Respiratory dz Mother Family History: No Known Living Status: Hx Cardiac Disease: Yes Physical Exam - Physical Exam General Appearance: Alert, Comfortable, No apparent distress, Other - alert to location, year, month, unsure of exact date or day of week (son says normal for her) Eye Exam: bilateral normal Ears, Nose, Throat: hearing grossly normal, normal ENT inspection, normal pharynx Neck: non-tender, full range of motion, supple, normal inspection Respiratory: crackles - BL lung bases, rhonchi, other - no wheezing Cardiovascular/Chest: no edema, no murmur, tachycardia Peripheral Pulses: radial,right: 2+, radial,left: 2+ Gastrointestinal/Abdominal: soft, tenderness - mod RUQ & suprapubic ttp without guarding or rebound Back Exam: normal inspection, no CVA tenderness, no vertebral tenderness Extremity: normal range of motion, non-tender, normal inspection, no pedal edema, no calf tenderness Neurologic: buggyman II-XII nml as tested, no motor/sensory deficits, alert, normal mood/affect, oriented x 3 Skin Exam: normal color, warm/dry Progress - Progress Progress: 06/04/19 21:13 Acute febrile illness -concern for sepsis - +fever, tachycardia - ?source - UTI vs PNA vs intraabdominal vs other -consider also ACS vs CHF vs PE vs other -stat lactate, blood cx's, UA, labs, CXR, EKG -place PIV, 1 L NS bolus, Zofran for nausea 06/05/19 04:00 -Pt's labs revealed SUDHEER, hypokalemia. She had leukocytosis without clear bacterial source - CT A/P obtained and c/w gastroenteritis - suspect as cause of fevers and leukocytosis, lactate 1.4. Hold Abx for now. -She was noted to be in a-fib with RVR, HR mostly 100s-120 while in ED. Given 2 L IVF bolus, KCl IV & PO, and dilt 10 mg slow IVP x1 with little improvement. Pt states her a-fib is a frequent issue for her as is SUDHEER. Her BP dropped to 90s/50s after diltiazem so no further rate control attempted. -Spoke with Bjorn Lecah who accepts for admission Tommy Samuels MD Billing #[id number] - Results/Orders Results/Orders: 06/04/19 20:30 IV Care:Saline Lock per Protoc QSHIFT Telemetry .ONCE Sodium Chloride 0.9% (Flush) [Saline Flush Syringe] 10 ml IV PRN PRN EKG Assessment ONCE EKG STAT Pulse Oximetry Assessment DAILY 06/04/19 21:58 BLOOD CULTURE Stat 06/05/19 09:00 Pulse Ox Daily 06/05/19 20:30 EKG STAT Laboratory Results - last 24 hr 06/04/19 06/04/19 06/04/19 21:05 21:05 21:05 WBC 11.9 H RBC 4.42 Hgb 13.3 Hct 40.1 MCV 90.7 MCH 30.1 MCHC 33.2 RDW 14.3 Plt Count 304 MPV 8.2 Absolute Neuts (auto) 10.30 H Absolute Lymphs (auto) 0.50 L Absolute Monos (auto) 0.60 Absolute Eos (auto) 0.30 Absolute Basos (auto) 0.10 Neutrophils % 87.2 H Lymphocytes % 4.2 L Monocytes % 5.2 Eosinophils % 2.7 Basophils % 0.7 PT 13.5 H INR 1.35 H PTT (SP) 29.7 Sodium 133 L Potassium 2.8 L Chloride 83 L Carbon Dioxide 31 Anion Gap 21.8 H BUN 45 H Creatinine 2.13 H BUN/Creatinine Ratio 21.1 H Random Glucose 170 H Serum Osmolality 281.9 Lactic Acid Calcium 10.3 H Total Bilirubin 0.7 AST 25 ALT 23 Alkaline Phosphatase 76 Troponin I B-Natriuretic Peptide 422.0 H* Serum Total Protein 8.6 H Albumin 4.1 Globulin 4.5 H Albumin/Globulin Ratio 0.9 L Urine Color Urine Appearance Urine pH Ur Specific Blanchard Urine Protein Urine Glucose (UA) Urine Ketones Urine Blood Urine Nitrite Urine Bilirubin Urine Urobilinogen Ur Leukocyte Esterase Urine RBC Urine WBC Ur Epithelial Cells Urine Bacteria 06/04/19 06/04/19 06/04/19 21:05 21:05 22:49 WBC RBC Hgb Hct MCV MCH MCHC RDW Plt Count MPV Absolute Neuts (auto) Absolute Lymphs (auto) Absolute Monos (auto) Absolute Eos (auto) Absolute Basos (auto) Neutrophils % Lymphocytes % Monocytes % Eosinophils % Basophils % PT INR PTT (SP) Sodium Potassium Chloride Carbon Dioxide Anion Gap BUN Creatinine BUN/Creatinine Ratio Random Glucose Serum Osmolality Lactic Acid 1.4 Calcium Total Bilirubin AST ALT Alkaline Phosphatase Troponin I < 0.02 B-Natriuretic Peptide Serum Total Protein Albumin Globulin Albumin/Globulin Ratio Urine Color Yellow Urine Appearance Clear Urine pH 7.0 Ur Specific Blanchard 1.015 Urine Protein Negative Urine Glucose (UA) Negative Urine Ketones Negative Urine Blood Negative Urine Nitrite Negative Urine Bilirubin Negative Urine Urobilinogen 0.2 Ur Leukocyte Esterase Trace H Urine RBC 0 Urine WBC 3-5 H Ur Epithelial Cells 0-1 Urine Bacteria Rare - EKG/XRAY/CT EKG: Atrial, Fibrillation - a-fib with RVR, HR 130s, no ST elevations or q waves, ST segment depressions noted in inferior & lateral leads, T wave inversions in inferior leads, axis and intervals normal, appears largely unchanged from 05/02/19 EKG Departure - Departure Clinical Impression: Atrial fibrillation with RVR, Viral gastroenteritis, Acute kidney injury, Hypokalemia Time of Disposition: 04:00 Disposition: Admit Patient Condition: Fair Home Medications: Ambulatory Orders RX: Ipratropium/Albuterol [Duoneb] 3 ml NEB Q4HR PRN 03/04/17 RX: metOLazone [Zaroxolyn] 2.5 mg PO DAILY PRN 09/25/18 RX: Rivaroxaban [Xarelto] 15 mg PO BEDTIME 05/02/19 RX: Gabapentin [Neurontin] 100 mg PO BEDTIME cap 05/10/19 RX: Budesonide (Inhalation) [Pulmicort] 1 mg IN BID PRN 05/11/19 RX: Cholecalciferol [Vitamin D] 1,000 unit PO DAILY 05/11/19 RX: Ferrous Sulfate [Iron] 65 mg PO DAILY 05/11/19 RX: Fluticasone Furoate-Vilanterol [Breo Ellipta 100-25 Mcg/INH] 1 puff INH DAILY 05/11/19 RX: Furosemide Tab [Lasix Tab] 40 mg PO DAILY #30 tab 05/14/19 Acetaminophen W/ Codeine [Tylenol W/ CODEINE #3] 1 - 2 ea PO Q4H PRN 06/05/19 Albuterol Sulfate [Ventolin Hfa] 108 mcg IN PRN PRN 06/05/19 Cyclobenzaprine HCl [Flexeril] 5 mg PO BEDTIME 06/05/19 Nitrofurantoin Monohydrate Mac [Macrobid] 100 mg PO BID 06/05/19 Ondansetron Odt [Zofran ODT] 8 mg PO Q6HRS PRN 06/05/19 Pyridoxine HCl [Vitamin B-6] 100 mg PO DAILY 06/05/19 RX: Citalopram Hydrobromide 40 mg PO DAILY 06/05/19 RX: Fenofibrate 145 mg PO DAILY 06/05/19 RX: Metoprolol Tartrate 25 mg PO BID 06/05/19 RX: Omeprazole [Prilosec Cap] 20 mg PO BID 06/05/19 RX: Sucralfate 1 gm PO ACHS 06/05/19 Theophylline [Fam-24] 150 mg PO DAILY@0700 06/05/19 Theophylline [Fam-24] 300 mg PO BEDTIME 06/05/19 Decision To Admit - Decistion To Admit Decision to Admit Reason: Admit from ER Decision to Admit Date: 06/05/19 Decision to Admit Time: 04:00
[2019-06-04] MEDS ORDERED: SODIUM CHLORIDE 0.9% 1000ML 1,000 ML IVS ONE (20:57)
[2019-06-04] MEDS ORDERED: ONDANSETRON INJ 4 MG/2 ML VIAL IV ONE (20:57)
--- NOTE | 2019-06-04 21:36 | RAD ---
EXAM: Chest,1 View CLINICAL INDICATION: 78-year-old female with altered mental status. TECHNIQUE: Single view, AP portable chest was obtained. COMPARISON: 05/07/2019. FINDINGS: The patient is rotated toward the RIGHT limiting evaluation. Stable appearing cardiac and mediastinal silhouette. Heart size is normal. Tortuous atherosclerotic thoracic aorta. Lungs are clear without focal opacity, pneumothorax or pleural effusions. The visualized bones are within normal limits. IMPRESSION: No acute cardiopulmonary abnormalities. Electronically signed by: Trish Tillman MD 06/04/2019 9:35 PM [facility]
[2019-06-04] MEDS ORDERED: POTASSIUM CHLORIDE 20 MEQ TAB PO ONE (21:43)
[2019-06-04] MEDS ORDERED: KCL 20MEQ/WATER FOR INJ 100ML 20 MEQ in PREMIX BAG 1 BAG IVPB ONE (21:43)
[2019-06-04] MEDS ORDERED: KCL 20MEQ/WATER FOR INJ 100ML 100 ML IVPB ONE (21:58)
[2019-06-04] MEDS ORDERED: KCL 20 MEQ/NS 1,000 ML IVS PRN (22:19)
[2019-06-04] MEDS ORDERED: NITROGLYCERIN 0.4 MG 25 EA TAB SL ONE (22:42)
--- NOTE | 2019-06-05 00:16 | CT ---
EXAM: CT Abdomen and Pelvis Without Intravenous Contrast CLINICAL HISTORY: The patient is 78 years old and is Female; Fever, leukocytosis, lower abdominal tenderness TECHNIQUE: Axial computed tomography images of the abdomen and pelvis without intravenous contrast. Sagittal and coronal reformatted images were created and reviewed. This CT exam was performed using one or more of the following dose reduction techniques: automated exposure control, adjustment of the mA and/or kV according to patient size, and/or use of iterative reconstruction technique. COMPARISON: No relevant prior studies available. FINDINGS: ARTIFACTS: s Artifacts: The exam is suboptimal secondary to motion artifact. LUNG BASES: Unremarkable. No mass. No consolidation. ABDOMEN: LIVER: There is a diffuse decrease in hepatic parenchymal density, consistent with fatty infiltration. GALLBLADDER AND BILE DUCTS: No calcified stones. No ductal dilation. PANCREAS: Unremarkable. No ductal dilation. SPLEEN: Unremarkable. ADRENALS: Unremarkable. No mass. KIDNEYS AND URETERS: No obstructing stones. No hydronephrosis. No perinephric fluid. STOMACH AND BOWEL: The stomach is decompressed. A few small bowel loops in the left abdomen demonstrate mucosal thickening with surrounding inflammatory stranding. The remainder the small bowel is normal in appearance. Stool is present throughout the colon. There is no bowel obstruction. PELVIS: APPENDIX: No findings to suggest acute appendicitis. BLADDER: Unremarkable. No stones. REPRODUCTIVE: The patient is status post hysterectomy. ABDOMEN and PELVIS: INTRAPERITONEAL SPACE: Unremarkable. No free air. No significant fluid collection. BONES/JOINTS: Multilevel degenerative change of the lumbar spine is present. SOFT TISSUES: The soft tissues are normal. VASCULATURE: Atherosclerosis of the vasculature is noted. No abdominal aortic aneurysm. LYMPH NODES: Unremarkable. No enlarged lymph nodes. IMPRESSION: Findings suggestive a nonspecific enteritis involving a few small bowel loops in the left abdomen. There is no bowel obstruction. Electronically signed by: Mikaela Kee MD 06/05/2019 12:15 AM [employer]
[2019-06-05] MEDS ORDERED: SODIUM CHLORIDE 0.9% (FLUSH) 10 ML SYG IV PRN (02:34)
[2019-06-05] MEDS ORDERED: ACETAMINOPHEN 325 MG TAB PO PRN (02:39)
[2019-06-05] MEDS: KCL 20 MEQ/NS 1,000 ML IVS PRN ×2 (02:40→18:09)
[2019-06-05] MEDS: IV SET AND CAP CHANGE INJ INJ SCH (02:44)
[2019-06-05] MEDS ORDERED: ACETAMINOPHEN W/COD #3 TAB 1 EA TAB PO PRN (03:26)
[2019-06-05] MEDS ORDERED: ACETAMINOPHEN W/COD #3 TAB 1 EA TAB ONE ×2 (03:49→08:54)
[2019-06-05] MEDS: ACETAMINOPHEN W/COD #3 TAB (ER Disp) PO PRN ×2 (03:51→09:00)
[2019-06-05] MEDS ORDERED: SODIUM CHLORIDE 0.9% 500ML 500 ML ONE ×2 (04:43→11:58)
[2019-06-05] MEDS ORDERED: SODIUM CHLORIDE 0.9% 500ML 500 ML IVS ONE ×2 (04:45→12:33)
[2019-06-05] MEDS: SUCRALFATE 1 GM TAB PO SCH ×4 (07:25→20:04)
[2019-06-05] MEDS: IPRATROPIUM/ALBUTEROL 3 ML VIAL NEB PRN ×3 (08:38→22:43)
[2019-06-05] MEDS: THEOPHYLLINE 150 MG PO SCH (08:40)
[2019-06-05] MEDS ORDERED: CEFEPIME 2 GM VIAL ONE (08:53)
[2019-06-05] MEDS ORDERED: SODIUM CHL 0.9% 50ML MIN-BAG+ 50 ML IVPB ONE (08:55)
[2019-06-05] MEDS: CITALOPRAM HBR 20 MG TAB PO SCH (09:00)
[2019-06-05] MEDS: METOPROLOL TARTRATE 50 MG TAB PO SCH ×2 (09:00→20:04)
[2019-06-05] MEDS ORDERED: OMEPRAZOLE CAP 20 MG CAP PO SCH (09:00)
[2019-06-05] MEDS: CEFEPIME 1 GM in SODIUM CHLORIDE 0.9% 50ML 50 ML IVPB SCH (09:06)
[2019-06-05] MEDS: FERROUS SULFATE 325 MG TAB PO SCH (10:00)
[2019-06-05] MEDS: FENOFIBRIC ACID 135 MG CAP PO SCH (10:00)
[2019-06-05] MEDS: PYRIDOXINE HCL 100 MG PO SCH (10:05)
[2019-06-05] MEDS: (Fluticasone Furoate-Vilanterol [Breo Ellipta 100-25 Mcg INH SCH (10:05)
--- NOTE | 2019-06-05 10:12 | HP ---
SUPERVISING PHYSICIAN: Jennifer Jimenez MD CHIEF COMPLAINT: Altered mental status, fever. HISTORY OF PRESENT ILLNESS: Ms. Ansari is a 78-year-old female patient who has a history of hypertension, congestive heart failure and chronic obstructive pulmonary disease. She was brought to the Emergency Room by her son with complaints of decreasing altered mental status along with fever. She had been recently treated for a urinary tract infection on Macrobid for 4 days. It was noted and endorsed by the patient that she started having some trouble urinating and her son had noted that it seemed like her responses were a little bit slower and she was running a fever. They never did get an additional reading at home. She was complaining of a little bit of nausea, but no actual emesis on admission. She had been having an ongoing wet cough for the last several weeks which is minimally productive. She was mildly dyspneic on admission, but not any actual chest pains. Initial lab work did show she had a mild leukocytosis with a left shift with a hemoglobin 13.3, hematocrit 40.1. Chemistries showed a hyponatremia whit sodium 133, potassium significantly low at 2.8 with a creatinine elevated at 2.13 with BUN 45. Lactic acid was normal at 1.4, calcium slightly elevated at 10.3. She did have an elevated BNP at 422, but troponin was less than 0.02. Urinalysis showed a microscopic with 3 to 5 RBCs with no epithelials, rare bacteria. Dipstick revealed a trace of leukocyte esterase. She was cultured including influenza A and B by PCR which was negative. Strep culture was negative. Blood cultures were completed. Urine culture was also requested. She then had an abdominopelvic CT due to the fever and leukocytosis and per radiologic interpretation there were findings suggestive of nonspecific enteritis involving some small bowel loops in the left abdomen. There was no obvious bowel obstruction. Given her vital signs on admission, she was febrile initially with a temperature of 101.2. She was mildly hypotensive with a blood pressure of 99/64, saturation 84% on room air. Chest x-ray showed no acute cardiopulmonary abnormalities, however, the patient was rotated which limited the right evaluation. It was also noted the patient has a history of chronic atrial fibrillation on Xarelto and a beta precious for control, but was noted to be in rapid ventricular response with a rate of 120 and mildly hypotensive on admission. Given the patient's fever, previous treatment for urinary tract infection and mental status change, the patient is going to be admitted for treatment of hypokalemia and acute kidney injury and initiation of antibiotic coverage for possible sepsis secondary to underlying urinary tract infection versus a developing pneumonia. She was admitted in stable condition. PAST MEDICAL HISTORY: 1. Atrial fibrillation on Xarelto. 2. Gastroesophageal reflux disease. 3. Chronic obstructive pulmonary disease. 4. Chronic congestive heart failure without current echocardiogram. 5. History of cervical cancer. 6. Atherosclerosis with claudication and stent placement of the femoral arteries. 7. Chronic kidney disease. PAST SURGICAL HISTORY: 1. Hemorrhoidectomy. 2. Bilateral femoral stents. 3. Hysterectomy. 4. Appendectomy. 5. Cervical cone biopsy. CURRENT MEDICATIONS: 1. Zaroxolyn 2.5 mg daily p.r.n. 2. Theophylline 150 mg daily in the morning. 3. Theophylline 300 mg at bedtime. 4. Carafate 1 gram a.c. and h.s. 5. Xarelto 15 at bedtime. 6. Vitamin B6 100 mg daily. 7. Zofran 8 mg q.6h. as needed. 8. Prilosec 20 mg b.i.d. 9. Metoprolol tartrate 25 mg b.i.d. 10. DuoNeb nebulizers q.4h. as needed. 11. Gabapentin 100 mg at bedtime. 12. Lasix 40 mg daily. 13. Brio Ellipta 1 puff daily. 14. Iron sulfate tablets 65 mg daily. 15. Fenofibrate 145 mg daily. 16. Flexeril 5 mg daily. 17. Citalopram 40 mg daily. 18. Vitamin D 1000 units daily. 19. Pulmicort 1 mg b.i.d. as needed. 20. Albuterol inhaler. 21. Tylenol #3 with codeine 1 or 2 q.4h. as needed. ALLERGIES: MULTIPLE ALLERGIES INCLUDING CRESTOR, ERYTHROMYCIN, PENICILLIN, PENTAZOCINE, RIFAMPIN, ATORVASTATIN, TORADOL, BENZODIAZEPINES. REVIEW OF SYSTEMS: CONSTITUTIONAL: Positive fro fever, general malaise and rigors. HEENT: Negative for headaches, sore throats, earaches, vision changes. RESPIRATORY: Positive for chronic shortness of breath, cough, mildly productive, no wheezing. CARDIOVASCULAR: Chronic atrial fibrillation. Negative for chest pain, palpitations or syncopal episodes. GENITOURINARY: Negative for dysuria, hematuria, polyuria, but recently treated for urinary tract infection. MUSCULOSKELETAL: Positive for general arthralgias, but no joint swelling. HEMATOLOGIC: Denies easy bruising, unexplained bleeding or transfusion reactions. NEUROLOGIC: Positive for generalized weakness, some decrease in mental status, confusion, but no focal deficits, as noted in history of present illness. SKIN: Negative for unexplained moles, lesions, rashes or changes. PHYSICAL EXAMINATION: VITAL SIGNS: Temperature initially on presentation was 101.2. Heart rate 129. Blood pressure 99/64. Respiratory rate 16. Saturation 84% on room air. GENERAL: The patient is alert, appears to be in no acute distress. HEENT: Tympanic membranes clear bilaterally. Oropharynx is pink with some dry mucous membranes, no lesions. NECK: Supple, nontender with full range of motion. No jugular venous distention noted. RESPIRATORY: Lungs with some slight crackles towards the lung bases. No wheezing or rales. CARDIOVASCULAR: Slightly irregular rate and rhythm, tachycardic, without any appreciable murmurs, gallops, or rubs. ABDOMEN: Soft with some mild tenderness noted in the right upper quadrant and suprapubic region, but no guarding or rebound tenderness. No point tenderness. No peritoneal signs. Bowel sounds active. BACK: Without any CVA tenderness or vertebral tenderness. EXTREMITIES: Moving all extremities ad carly with no notable deficits. There is no cyanosis, clubbing or edema. NEUROLOGIC: The patient is alert and oriented times three. Cranial nerves II- XII are grossly intact. Facial features are symmetrical. Extraocular movements are within normal limits. There is no nystagmus noted. SKIN: Warm, pink and dry. LABORATORY: CBC showed mild leukocytosis of 11,900 with a left shift. Hemoglobin 13.3, hematocrit 40.1. Coagulation studies showed PT 13.5, PTT 29.7. Chemistries showed a mild hyponatremia with sodium down to 133, potassium low at 2.8, BUN 45, creatinine 2.13, elevated anion gap of 21.8. Glucose 170, lactic acid 1.4, calcium 10.3. Liver function within normal limits. BNP elevated at 422. Urinalysis showed a trace of leukocyte esterase on the dipstick with microscopic showing 0 RBCs, 3 to 5 WBCs and rare bacteria. Rapid strep screen was negative. Influenza A and B was negative by PCR. Blood cultures pending. Group A strep pending. RADIOLOGY: Chest x-ray initially in the Emergency Room per radiologic interpretation showed no acute cardiopulmonary abnormalities. Abdominopelvic CT without IV contrast showed findings suggestive of nonspecific enteritis involving a few small bowel loops in the left abdomen, no bowel obstruction. ASSESSMENT: 1. Febrile illness with concerns for sepsis with findings on CT concerning for possible enteritis with a mild leukocytosis. 2. History of chronic urinary tract infection, recently treated with Macrobid. 3. Acute mental status change, likely due to #1 and uncertain infectious process. 4. Atrial fibrillation with rapid ventricular response. 5. Electrolyte imbalance with hypokalemia, hyponatremia, probably due to chronic diuretic usage. 6. Renal insufficiency, likely due to prerenal azotemia from dehydration due to excessive diuresis. 7. Congestive heart failure, uncertain etiology, without echocardiogram available for review. 8. Chronic obstructive pulmonary disease with no obvious signs of exacerbation at time of admission. 9. Gastroesophageal reflux disease. PLAN: The patient is going to be admitted for treatment of the hypokalemia and to start on antibiotics to cover for possible enteritis and possible treatment of failure of treatment of urinary tract infection recently with Macrobid. She will be on antibiotic coverage with cefepime given the fact that she has had a recent urinary tract infection with Pseudomonas and has been in the hospital within the last month. We will resume her home medications once those have been updated and verified. She will be on DVT prophylaxis per protocol in addition to her anticoagulation with Xarelto. I will culture her urine, blood cultures. If she continues to have any abdominal pain and should she have any stools, certainly we will address those with cultures and possible C. difficile given that she has had a recent history of treatment with antibiotic coverage. I anticipate length of stay to be at least 2 to 3 days. We will go ahead and start on some IV fluids to assist with rehydration and hopefully correct some of the underlying kidney injury. At this point, we will hold off on her diuretics and monitor clinically for improvement. Until the patient can transition to outpatient management, we will continue to monitor and treat as needed. #[id number] [facility]
[2019-06-05] MEDS: ACETAMINOPHEN W/COD #3 TAB 1 EA TAB PO PRN ×2 (16:42→20:05)
[2019-06-05] MEDS: OMEPRAZOLE CAP 20 MG CAP PO SCH (16:43)
[2019-06-05] MEDS ORDERED: RIVAROXABAN 10 MG TAB ONE (19:01)
[2019-06-05] MEDS: RIVAROXABAN 15 MG TAB PO SCH (20:04)
[2019-06-05] MEDS: CYCLOBENZAPRINE HCL 5 MG TAB PO SCH (20:04)
[2019-06-05] MEDS: THEOPHYLLINE 300 MG PO SCH (20:21)
[2019-06-06] MEDS: IPRATROPIUM/ALBUTEROL 3 ML VIAL NEB PRN ×4 (02:29→14:15)
[2019-06-06] MEDS: ACETAMINOPHEN W/COD #3 TAB 1 EA TAB PO PRN (03:02)
[2019-06-06] MEDS: SUCRALFATE 1 GM TAB PO SCH ×4 (06:04→21:20)
[2019-06-06] MEDS: THEOPHYLLINE 150 MG PO SCH (06:04)
[2019-06-06] MEDS: OMEPRAZOLE CAP 20 MG CAP PO SCH ×2 (06:04→17:09)
[2019-06-06] MEDS: KCL 20 MEQ/NS 1,000 ML IVS PRN (06:29)
[2019-06-06] MEDS ORDERED: CEFEPIME 2 GM VIAL ONE (07:27)
[2019-06-06] MEDS ORDERED: SODIUM CHLORIDE 0.9% 50ML 50 ML ONE (07:27)
[2019-06-06] MEDS: CITALOPRAM HBR 20 MG TAB PO SCH (08:07)
[2019-06-06] MEDS: METOPROLOL TARTRATE 50 MG TAB PO SCH ×2 (08:07→20:51)
[2019-06-06] MEDS: FENOFIBRIC ACID 135 MG CAP PO SCH (08:07)
[2019-06-06] MEDS: FERROUS SULFATE 325 MG TAB PO SCH (08:08)
[2019-06-06] MEDS: CEFEPIME 1 GM in SODIUM CHLORIDE 0.9% 50ML 50 ML IVPB SCH (08:08)
[2019-06-06] MEDS: PYRIDOXINE HCL 100 MG PO SCH (08:12)
[2019-06-06] MEDS: (Fluticasone Furoate-Vilanterol [Breo Ellipta 100-25 Mcg INH SCH (08:20)
[2019-06-06] MEDS ORDERED: POTASSIUM CHLORIDE 20 MEQ TAB PO ONE (08:43)
[2019-06-06] MEDS: FUROSEMIDE 40 MG TAB PO SCH (08:58)
[2019-06-06] MEDS: IPRATROPIUM/ALBUTEROL 3 ML VIAL NEB SCH ×3 (12:30→20:13)
--- NOTE | 2019-06-06 13:22 | PN ---
SUPERVISING PHYSICIAN: Jennifer Jimenez MD DATE: 06/06/19 SUBJECTIVE: The patient is lying in bed. She is unable to speak due to her shortness of breath and rapid breathing. She can talk in one to two word phrases. She is very agitated and short of breath. OBJECTIVE: VITAL SIGNS: Temperature 98.3. Heart rate 108. Blood pressure 94/57. Respiratory rate about 28. O2 saturation 94% on high-flow. RESPIRATORY: Scattered rhonchi throughout all lung patterson as well as inspiratory and expiratory wheezing. She does have some crackles. Her breathing is labored. She is tachypneic. She can only speak in one to two word phrases if at all. She has increased work of breathing. CARDIAC: Regular rate and irregular rhythm. It is tachycardic at times. GASTROINTESTINAL: Abdomen is soft, nondistended, nontender. Bowel sounds are positive. EXTREMITIES: She has a trace of edema to bilateral lower extremities. Bilateral pedal pulses are palpable. NEUROLOGIC: Awake, somewhat alert. She is unable to answer questions at this time due to her respiratory distress. LABORATORY: WBCs 7.2, hemoglobin 10.3, hematocrit 31.4. Electrolytes are basically within normal limits with the exception of potassium low at 3.2. Creatinine has improved to 1.9. Preliminary blood cultures show no growth after 24 hours. All other labs and films have been reviewed via the EMR. ASSESSMENT: 1. Febrile illness with concerns for sepsis with findings on CT concerning for possible enteritis with a mild leukocytosis. 2. Chronic obstructive pulmonary disease with acute exacerbation. 3. Acute mental status change, likely due to #1 and uncertain infectious process. 4. Atrial fibrillation with rapid ventricular response, now somewhat controlled. 5. Electrolyte imbalance, mostly resolved except for her hypokalemia. 6. Acute on chronic renal failure. Her baseline creatinine is 1.3. 7. Congestive heart failure with recent echocardiogram that shows an ejection fraction of 40% with mild to moderate global hypokinesis with systolic dysfunction. 8. History of chronic urinary tract infection, recently treated with Macrobid. 9. Gastroesophageal reflux disease. PLAN: We will continue present supportive care. I have ordered some Ativan. She does have an adverse reaction to it as it does say it "zones her out." She is very agitated at this time, so we will give her that. I have also given her a dose of steroids and an extra dose of Lasix. I have ordered lab and chest x- ray in the morning. I have also ordered an ABG. Her fluids have been stopped. All of her home medications have been restarted. We will continue to monitor the patient closely and follow as needed. #[id number] [facility]
[2019-06-06] MEDS ORDERED: methylPREDNISolone SODIUM SUC 125 MG/2 ML VIAL IV ONE (14:37)
[2019-06-06] MEDS ORDERED: FUROSEMIDE INJ 20 MG/2 ML VIAL IV ONE (14:37)
[2019-06-06] MEDS: CYCLOBENZAPRINE HCL 5 MG TAB PO SCH (20:51)
[2019-06-06] MEDS: RIVAROXABAN 15 MG TAB PO SCH (20:51)
[2019-06-06] MEDS: THEOPHYLLINE 300 MG PO SCH (20:52)
[2019-06-06] MEDS: GABAPENTIN 100 MG CAP PO SCH (20:59)
[2019-06-07] MEDS: IPRATROPIUM/ALBUTEROL 3 ML VIAL NEB PRN (01:33)
[2019-06-07] MEDS: SUCRALFATE 1 GM TAB PO SCH ×4 (06:27→20:51)
[2019-06-07] MEDS: OMEPRAZOLE CAP 20 MG CAP PO SCH ×2 (06:28→17:10)
[2019-06-07] MEDS: THEOPHYLLINE 150 MG PO SCH (06:28)
--- NOTE | 2019-06-07 07:29 | RAD ---
EXAM DESCRIPTION: Chest,1 View CLINICAL HISTORY: chf COMPARISON: June 04, 2019 IMPRESSION: Single AP portable upright view of the chest shows mild enlargement of the cardiac without pulmonary vascular congestion. Lungs are normally aerated and clear. No obvious pleural effusion or pneumothorax is seen. Electronically signed by: Corby De Jesus MD 06/07/2019 7:28 AM SORTING MACHINE ATTENDANT
[2019-06-07] MEDS: IPRATROPIUM/ALBUTEROL 3 ML VIAL NEB SCH ×4 (08:28→20:12)
[2019-06-07] MEDS: (Fluticasone Furoate-Vilanterol [Breo Ellipta 100-25 Mcg INH SCH (08:28)
[2019-06-07] MEDS ORDERED: CEFEPIME 2 GM VIAL ONE (08:38)
[2019-06-07] MEDS ORDERED: SODIUM CHLORIDE 0.9% 50ML 50 ML ONE (08:38)
[2019-06-07] MEDS ORDERED: POTASSIUM CHLORIDE 20 MEQ TAB PO ONE (08:49)
[2019-06-07] MEDS ORDERED: MAGNESIUM SULFATE PREMIX 2GM 2 GM in PREMIX BAG 1 BAG IVPB ONE (08:49)
[2019-06-07] MEDS: PYRIDOXINE HCL 100 MG PO SCH (09:09)
[2019-06-07] MEDS: FENOFIBRIC ACID 135 MG CAP PO SCH (09:10)
[2019-06-07] MEDS: CEFEPIME 1 GM in SODIUM CHLORIDE 0.9% 50ML 50 ML IVPB SCH (10:00)
[2019-06-07] MEDS ORDERED: MAGNESIUM SULFATE PREMIX 2GM 50 ML IVPB ONE (10:14)
[2019-06-07] MEDS: METOPROLOL TARTRATE 50 MG TAB PO SCH ×2 (10:16→20:49)
[2019-06-07] MEDS: FUROSEMIDE 40 MG TAB PO SCH (10:17)
[2019-06-07] MEDS: FERROUS SULFATE 325 MG TAB PO SCH (10:17)
[2019-06-07] MEDS: CITALOPRAM HBR 20 MG TAB PO SCH (10:18)
[2019-06-07] MEDS ORDERED: diphenhydrAMINE HCL 25 MG CAP ONE (10:24)
[2019-06-07] MEDS ORDERED: diphenhydrAMINE HCL 25 MG CAP PO PRN (10:30)
[2019-06-07] MEDS ORDERED: FUROSEMIDE INJ 20 MG/2 ML VIAL IV ONE (14:37)
[2019-06-07] MEDS: ACETAMINOPHEN W/COD #3 TAB 1 EA TAB PO PRN ×2 (15:03→18:29)
[2019-06-07] MEDS: RIVAROXABAN 15 MG TAB PO SCH (20:49)
[2019-06-07] MEDS: THEOPHYLLINE 300 MG PO SCH (20:49)
[2019-06-07] MEDS: CYCLOBENZAPRINE HCL 5 MG TAB PO SCH (20:49)
[2019-06-07] MEDS: GABAPENTIN 100 MG CAP PO SCH (20:49)
[2019-06-08] MEDS: IV SET AND CAP CHANGE INJ INJ SCH (03:46)
[2019-06-08] MEDS: THEOPHYLLINE 150 MG PO SCH (06:36)
[2019-06-08] MEDS: OMEPRAZOLE CAP 20 MG CAP PO SCH ×2 (06:36→18:26)
[2019-06-08] MEDS: SUCRALFATE 1 GM TAB PO SCH ×4 (06:36→21:09)
[2019-06-08] MEDS: ACETAMINOPHEN W/COD #3 TAB 1 EA TAB PO PRN ×2 (06:56→09:48)
[2019-06-08] MEDS ORDERED: SODIUM CHLORIDE 0.9% 50ML 50 ML ONE (07:52)
[2019-06-08] MEDS ORDERED: CEFEPIME 2 GM VIAL ONE (07:52)
--- NOTE | 2019-06-08 08:52 | PN ---
SUPERVISING PHYSICIAN: Jennifer Jimenez MD DATE: 06/07/19 SUBJECTIVE: The patient is sitting up in bed. She is much more alert today although it is reported by nursing staff that she does not keep her BiPAP on. I discussed with her that she needed to keep her BiPAP on for good oxygenation and ventilation. She has no complaints of chest pain, nausea, vomiting, dizziness. She does complain of shortness of breath when she is off BiPAP. OBJECTIVE: VITAL SIGNS: Temperature 97.7. Heart rate 118. Blood pressure 110/74. Respiratory rate 20 to 24. O2 saturation 97% on BiPAP. She does drop to the mid to upper 80s when she is off BiPAP. RESPIRATORY: Diminished breath sounds throughout with scattered rhonchi. CARDIAC: Tachycardic rate and regular rhythm. GASTROINTESTINAL: Abdomen is soft, nondistended, nontender. Bowel sounds are positive. NEUROLOGIC: Awake, alert, oriented to person only. LABORATORY: WBCs 6, hemoglobin 10.6, hematocrit 32.4. She has a left shift on differential. Potassium slightly low at 3.2 with chloride 99. Carbon dioxide 32, creatinine improved to 1.31. Magnesium 1.4, AST 52, ALT 66. Preliminary blood cultures show no growth after 48 hours. Urine culture pending. Chest x- ray shows single AP portable upright view of the chest shows mild enlargement of the cardiac without pulmonary vascular congestion. Lungs are normally aerated and clear. No obvious pleural effusions or pneumothorax seen. All other labs and films have been reviewed via the EMR. ASSESSMENT: 1. Febrile illness with concerns for sepsis with findings on CT concerning for possible enteritis with a mild leukocytosis. 2. Chronic obstructive pulmonary disease with acute exacerbation. 3. Acute mental status change, likely due to #1 and uncertain infectious process. 4. Atrial fibrillation with rapid ventricular response, now somewhat controlled. 5. Electrolyte imbalance, mostly resolved except for her hypokalemia. 6. Acute on chronic renal failure. Her baseline creatinine is 1.3. 7. Congestive heart failure with recent echocardiogram that shows an ejection fraction of 40% with mild to moderate global hypokinesis with systolic dysfunction. 8. History of chronic urinary tract infection, recently treated with Macrobid. 9. Gastroesophageal reflux disease. 10. Elevated liver enzymes. PLAN: We will continue present supportive care. I have given her some potassium supplementation as well as some magnesium. I will repeat her lab for in the morning. She will continue on BiPAP for now. She does have Swing Bed days available. She may need to use those given her poor respiratory status. We will need to find out the exact day that she could be placed in Swing Bed status for strengthening and conditioning although at this time she continues to be in such poor respiratory distress that we will have to keep her in Acute Care until we can wean her off of her oxygen. Hopefully she can be weaned off BiPAP tomorrow. She will need a pulmonary consult on discharge. We will continue to monitor the patient closely and follow as needed. #[id number] [facility]
[2019-06-08] MEDS: IPRATROPIUM/ALBUTEROL 3 ML VIAL NEB SCH ×4 (09:08→20:00)
[2019-06-08] MEDS: (Fluticasone Furoate-Vilanterol [Breo Ellipta 100-25 Mcg INH SCH (09:08)
[2019-06-08] MEDS ORDERED: methylPREDNISolone SODIUM SUC 125 MG/2 ML VIAL IV ONE (09:17)
[2019-06-08] MEDS: FERROUS SULFATE 325 MG TAB PO SCH (09:47)
[2019-06-08] MEDS: CITALOPRAM HBR 20 MG TAB PO SCH (09:47)
[2019-06-08] MEDS: FUROSEMIDE 40 MG TAB PO SCH (09:48)
[2019-06-08] MEDS: METOPROLOL TARTRATE 50 MG TAB PO SCH ×2 (09:48→21:08)
[2019-06-08] MEDS: CEFEPIME 1 GM in SODIUM CHLORIDE 0.9% 50ML 50 ML IVPB SCH (09:49)
[2019-06-08] MEDS: PYRIDOXINE HCL 100 MG PO SCH (09:50)
[2019-06-08] MEDS: FENOFIBRIC ACID 135 MG CAP PO SCH (09:50)
[2019-06-08] MEDS ORDERED: methylPREDNISolone SODIUM SUC 125 MG/2 ML VIAL ONE (09:57)
[2019-06-08] MEDS: BUDESONIDE NEBS 0.5 MG/2 ML INH NEB SCH ×2 (16:40→20:00)
[2019-06-08] MEDS: methylPREDNISolone SODIUM SUC 125 MG/2 ML VIAL IV SCH ×2 (18:28→21:09)
[2019-06-08] MEDS: RIVAROXABAN 15 MG TAB PO SCH (21:08)
[2019-06-08] MEDS: GABAPENTIN 100 MG CAP PO SCH (21:08)
[2019-06-08] MEDS: CYCLOBENZAPRINE HCL 5 MG TAB PO SCH (21:09)
[2019-06-08] MEDS: THEOPHYLLINE 300 MG PO SCH (21:09)
[2019-06-09] MEDS: methylPREDNISolone SODIUM SUC 125 MG/2 ML VIAL IV SCH (03:41)
[2019-06-09] MEDS: IPRATROPIUM/ALBUTEROL 3 ML VIAL NEB PRN (05:59)
[2019-06-09] MEDS: SUCRALFATE 1 GM TAB PO SCH ×2 (06:35→13:17)
[2019-06-09] MEDS: THEOPHYLLINE 150 MG PO SCH (06:35)
[2019-06-09] MEDS: OMEPRAZOLE CAP 20 MG CAP PO SCH (06:35)
[2019-06-09] MEDS: (Fluticasone Furoate-Vilanterol [Breo Ellipta 100-25 Mcg INH SCH (07:55)
[2019-06-09] MEDS: IPRATROPIUM/ALBUTEROL 3 ML VIAL NEB SCH ×2 (07:56→15:28)
[2019-06-09] MEDS: BUDESONIDE NEBS 0.5 MG/2 ML INH NEB SCH (07:56)
[2019-06-09] MEDS ORDERED: POTASSIUM CHLORIDE 20 MEQ TAB PO ONE (09:18)
[2019-06-09] MEDS ORDERED: CEFEPIME 2 GM VIAL ONE (10:07)
[2019-06-09] MEDS ORDERED: SODIUM CHLORIDE 0.9% 50ML 50 ML ONE (10:07)
[2019-06-09 10:18] VITALS: O2SAT 95
[2019-06-09] MEDS: FERROUS SULFATE 325 MG TAB PO SCH (10:21)
[2019-06-09] MEDS: METOPROLOL TARTRATE 50 MG TAB PO SCH (10:21)
[2019-06-09] MEDS: FENOFIBRIC ACID 135 MG CAP PO SCH (10:21)
[2019-06-09] MEDS: CITALOPRAM HBR 20 MG TAB PO SCH (10:21)
[2019-06-09] MEDS: CEFEPIME 1 GM in SODIUM CHLORIDE 0.9% 50ML 50 ML IVPB SCH (10:22)
[2019-06-09] MEDS: PYRIDOXINE HCL 100 MG PO SCH (10:22)
[2019-06-09] MEDS: FUROSEMIDE 40 MG TAB PO SCH (10:22)
--- NOTE | 2019-06-09 11:21 | PN ---
SUPERVISING PHYSICIAN: Jennifer Jimenez MD DATE: 06/08/19 SUBJECTIVE: The patient is still requiring BiPAP but is able to tolerate it while she eats. I did discuss with her that I am going to go ahead and give her some fairly heavy doses of steroids to see if this will help with her chronic obstructive pulmonary disease exacerbation and hopefully be able to get onto her normal nasal cannula. OBJECTIVE: VITAL SIGNS: Temperature 98.1, pulse 104. Blood pressure 128/76. Respiratory rate 18, oxygen saturation 96% on BiPAP. GENERAL: The patient appears to be on no acute distress while she's on BiPAP temporarily. .She does appear quite ill but a little improved from the last time I saw her. RESPIRATORY: Lung sounds diminished with some notable inspiratory-expiratory wheezing bilaterally. CARDIAC: Regular rate and rhythm. GASTROINTESTINAL: Abdomen is soft, nontender. Bowel sounds are positive. EXTREMITIES: Without edema. NEUROLOGIC: Alert and oriented x3 which is improved from yesterday. . LABORATORY: White normal at 7,300, hemoglobin 9.9, hematocrit 30.6, differential shows to be without a left shift. Chemistries show a mildly low potassium at 3.1, carbon dioxide does remain elevated at 33 with BUN of 42, creatinine 1.42. Liver functions within normal limits. RADIOLOGY: No repeat radiology today. ASSESSMENT: 1. Febrile illness with sepsis with concerns for enteritis as noted on CT with a mild leukocytosis, now showing improvement. 2. Chronic obstructive pulmonary disease with acute exacerbation, BiPAP attendant currently, showing slow clinical progress. 3. Acute mental status change, likely due to #1 and #2, now showing to be at near baseline levels. . 4. Atrial fibrillation with rapid ventricular response, now somewhat controlled. 5. Electrolyte imbalance including hypokalemia which is persistent. 6. Acute on chronic renal failure. Her baseline creatinine is 1.3. 7. Congestive heart failure with recent echocardiogram that shows an ejection fraction of 40% with mild to moderate global hypokinesis with systolic dysfunction. 8. History of chronic urinary tract infection, recently treated with Macrobid. 9. Gastroesophageal reflux disease. 10. Elevated liver enzymes. PLAN: We will continue to try to get her off BiPAP today with anticipation of hopefully being able to discharge within the next 24 to 48 hours. Given that she has been slow to get off BiPAP and had some wheezing today, I am going to hit her fairly hard with some corticosteroids as she does have advanced chronic obstructive pulmonary disease and exacerbation. we will continue with antibiotics currently. She has lost her Swing Bed days but did discuss with her the fact that she is showing improvement and hopefully be able to discharge home but will reassess. Until then, we will continue to titrate off BiPAP and again, anticipate discharge in the next 24-48 hours. Until then, we will continue to monitor and treated as needed. #[id number] [facility]
[2019-06-09 14:45] VITALS: TEMP 98
[2019-06-09 15:12] VITALS: BP 136/76
--- NOTE | 2019-06-18 15:03 | DS ---
Jennifer Jimenez MD ADMISSION DIAGNOSIS: 1. Febrile illness with concerns for sepsis with findings on CT concerning for possible enteritis with a mild leukocytosis. 2. History of chronic urinary tract infection, recently treated with Macrobid. 3. Acute mental status change, likely due to #1 and uncertain infectious process. 4. Atrial fibrillation with rapid ventricular response. 5. Electrolyte imbalance with hypokalemia, hyponatremia, probably due to chronic diuretic usage. 6. Renal insufficiency, likely due to prerenal azotemia from dehydration due to excessive diuresis. 7. Congestive heart failure, uncertain etiology, without echocardiogram available for review. 8. Chronic obstructive pulmonary disease with no obvious signs of exacerbation at time of admission. 9. Gastroesophageal reflux disease. DISCHARGE DIAGNOSIS: 1. Febrile illness with sepsis initially with concerns for enteritis on CT with a mild leukocytosis, showing improvement and stabilization prior to discharge. 2. Chronic obstructive pulmonary disease with acute exacerbation, clinically improved, not requiring BiPAP. 3. Acute mental status change, likely due to #1 and #2, now showing to be at near baseline levels. 4. Atrial fibrillation with rapid ventricular response on admission with good ventricular rate control prior to discharge. 5. Electrolyte imbalance including mild hypokalemia, improving prior to discharge. 6. Acute on chronic renal failure, returning to baseline prior to discharge. 7. Congestive heart failure with recent echocardiogram that shows an ejection fraction of 40% with mild to moderate global hypokinesis with systolic dysfunction. 8. History of chronic urinary tract infection, recently treated with Macrobid. 9. Gastroesophageal reflux disease. 10. Elevated liver enzymes, likely due to acute illness. REASON FOR HOSPITALIZATION: Ms. Ansari is a 78-year-old female patient who has a history of hypertension, congestive heart failure and chronic obstructive pulmonary disease. She was brought to the Emergency Room by her son with complaints of decreasing altered mental status along with fever. She had been recently treated for a urinary tract infection on Macrobid for 4 days. It was noted and endorsed by the patient that she started having some trouble urinating and her son had noted that it seemed like her responses were a little bit slower and she was running a fever. They never did get an additional reading at home. She was complaining of a little bit of nausea, but no actual emesis on admission. She had been having an ongoing wet cough for the last several weeks which is minimally productive. She was mildly dyspneic on admission, but not any actual chest pains. Initial lab work did show she had a mild leukocytosis with a left shift with a hemoglobin 13.3, hematocrit 40.1. Chemistries showed a hyponatremia whit sodium 133, potassium significantly low at 2.8 with a creatinine elevated at 2.13 with BUN 45. Lactic acid was normal at 1.4, calcium slightly elevated at 10.3. She did have an elevated BNP at 422, but troponin was less than 0.02. Urinalysis showed a microscopic with 3 to 5 RBCs with no epithelials, rare bacteria. Dipstick revealed a trace of leukocyte esterase. She was cultured including influenza A and B by PCR which was negative. Strep culture was negative. Blood cultures were completed. Urine culture was also requested. She then had an abdominopelvic CT due to the fever and leukocytosis and per radiologic interpretation there were findings suggestive of nonspecific enteritis involving some small bowel loops in the left abdomen. There was no obvious bowel obstruction. Given her vital signs on admission, she was febrile initially with a temperature of 101.2. She was mildly hypotensive with a blood pressure of 99/64, saturation 84% on room air. Chest x-ray showed no acute cardiopulmonary abnormalities, however, the patient was rotated which limited the right evaluation. It was also noted the patient has a history of chronic atrial fibrillation on Xarelto and a beta precious for control, but was noted to be in rapid ventricular response with a rate of 120 and mildly hypotensive on admission. Given the patient's fever, previous treatment for urinary tract infection and mental status change, the patient is going to be admitted for treatment of hypokalemia and acute kidney injury and initiation of antibiotic coverage for possible sepsis secondary to underlying urinary tract infection versus a developing pneumonia. She was admitted in stable condition. LABORATORY: White count on admission was 11,900, prior to discharge was 7,300. Differential had normalized prior to discharge. Hemoglobin 9.9 and hematocrit 36.6 and were stable. Coagulation studies showed PT 13.5, PT-T 29.7. Blood gas analysis initially on admission showed pH 7.22, pCO2 72, pO2 56, bicarb normal at 28, saturation 77% on room air. On BiPAP, she improved to pH 7.33, pO2 118, pCO2 54, bicarb 27.5, saturation 98%. Chemistries showed a persistent hypokalemia. Discharge potassium prior to replacement was 3.0. Creatinine normalized from 2.13 on admission and on discharge was 1.10. Initial potassium on admission was 2.8. Lactic acid was normal at 1.4. Calcium normalized to 8.9. She did have BNP elevated at 422. Troponin was less than 0.02. She had a slightly elevated ALT and AST, but normalized prior to discharge. MICROBIOLOGY: Blood cultures remained negative after 5 days. Urine culture showed just urogenital lalito. Her strep A screen throat culture was with no beta hemolytic Streptococcus isolated. Influenza A and B by PCR was negative. RADIOLOGY: Chest x-ray on admission per radiologic interpretation showed no acute cardiopulmonary abnormalities. She had an abdominopelvic CT and per radiologic interpretation showed findings suggestive of nonspecific enteritis involving small bowel loops in the left abdomen, no bowel obstruction. She had a followup chest x-ray on 06/07/19, two days prior to discharge after being on BiPAP showed mild enlargement of the cardiac silhouette without any pulmonary vascular congestion, no obvious pleural effusions. Echocardiogram showed mildly to moderate reduced left ventricular systolic function with 40% ejection fraction. Please see that report for details. EKG showed a paced rhythm. HOSPITAL COURSE: Ms. Ansari was admitted for mild enteritis and atrial fibrillation with rapid ventricular response. She was treated and developed some respiratory distress and was requiring BiPAP. She was started on steroids, aggressively treated with steroids and was able to be weaned off BiPAP. By discharge, she had shown good clinical improvement, had control of her atrial fibrillation and ventricular rate and was actually ambulating without assistance and was clinically stable enough to continue with outpatient management on day of discharge. PLAN: Ms. Ansari was discharged on 06/09/19 with instructions to followup with Dr. Diaz. She was to resume her medications as instructed and return to the Emergency Room and hospital as needed. Diet was to resume usual diet as tolerated. Activity to ambulate only with a walker per physical therapy and to increase as tolerated and to wear oxygen as directed. Prescriptions on discharge included: 1. Xanax 0.25 mg q.8h. as needed, #10, no refills. 2. Medrol Dosepak 6-day taper dose. All other medications prior to hospital were continued. DISPOSITION: The patient was discharged home. CONDITION ON DISCHARGE: Stable and improved. #[id number] MTDD
== END 2019-06-09 16:25 | disposition home or self-care (01) | DRG 872 ==
LOC: ER 20:19 → OBSVTOIN 06-05 01:00 → MS 06-05 01:00
PROVIDERS: ADMIT Nurse Practitioner Family; ATTEND Nurse Practitioner Family
DX: A41.9 Sepsis, unspecified organism (principal); E87.1 Hypo-osmolality and hyponatremia; I13.0 Hypertensive heart and chronic kidney disease with heart failure and stage 1 through stage 4 chronic kidney disease, or unspecified chronic kidney disease; N17.9 Acute kidney failure, unspecified; J44.1 Chronic obstructive pulmonary disease with (acute) exacerbation; I50.20 Unspecified systolic (congestive) heart failure; I48.20 Chronic atrial fibrillation, unspecified; K52.9 Noninfective gastroenteritis and colitis, unspecified; E87.6 Hypokalemia; E86.0 Dehydration; R65.20 Severe sepsis without septic shock; K21.9 Gastro-esophageal reflux disease without esophagitis; I70.213 Atherosclerosis of native arteries of extremities with intermittent claudication, bilateral legs; N18.9 Chronic kidney disease, unspecified; Z95.820 Peripheral vascular angioplasty status with implants and grafts; Z66 Do not resuscitate; Z79.01 Long term (current) use of anticoagulants; Z79.51 Long term (current) use of inhaled steroids; Z88.0 Allergy status to penicillin; Z88.1 Allergy status to other antibiotic agents; Z88.5 Allergy status to narcotic agent; Z88.8 Allergy status to other drugs, medicaments and biological substances; Z79.899 Other long term (current) drug therapy; Z87.440 Personal history of urinary (tract) infections

== ENCOUNTER 2019-09-20 00:34 | Emergency (ER) | payer MEDICARE ==
[2019-09-20 00:59] VITALS: TEMP 98.6
[2019-09-20] MEDS ORDERED: IPRATROPIUM/ALBUTEROL 3 ML VIAL NEB ONE (01:00)
--- NOTE | 2019-09-20 01:05 | ED.PDOC ---
History of Present Illness - General Chief Complaint: Respiratory Problem Stated Complaint: SOB and cough since today Time Seen by Provider: 09/20/19 00:56 Source: patient, RN notes reviewed, Vital Signs reviewed, family Exam Limitations: no limitations - History of Present Illness Comments: Pt is a 78 yo female with h/o afib, COPD, not on oxygen at home. Presents with 2 day h/o nonproductive cough, wheezing and shortness of breath. Denies fever, chills, palpitations, light headedness or chest pain. Improves with neb treatment at home. Timing/Duration: yesterday Cough Quality/Degree: moderate Possible Cause: occasional episodes Associated Symptoms: cough Allergies/Adverse Reactions: Allergies Rosuvastatin [From Crestor] Allergy (Severe, Verified 09/20/19 00:57) Rash Erythromycin Allergy (Verified 09/20/19 00:57) Nausea Penicillins Allergy (Verified 09/20/19 00:57) Pentazocine [From Talwin Compound] Allergy (Verified 05/10/19 11:10) Rash Rifampin Allergy (Verified 09/20/19 00:57) Rash Atorvastatin [From Lipitor] Adverse Reaction (Intermediate, Verified 09/20/19 00:57) Other Causes muscle pain Ketorolac Tromethamine [From Toradol] Adverse Reaction (Intermediate, Verified 05/10/19 11:10) Benzodiazepines Adverse Reaction (Verified 09/20/19 00:57) Other Some benzos make patient "ZONED out for days" Warfarin [From Coumadin] Adverse Reaction (Verified 09/20/19 01:18) causes stomach bleeding Home Medications: Ambulatory Orders Ipratropium/Albuterol [Duoneb] 3 ml NEB Q4HR PRN 03/04/17 Rivaroxaban [Xarelto] 15 mg PO BEDTIME 05/02/19 Budesonide (Inhalation) [Pulmicort] 1 mg IN BID 05/11/19 Cholecalciferol [Vitamin D] 1,000 unit PO DAILY 05/11/19 Ferrous Sulfate [Iron] 65 mg PO DAILY 05/11/19 Acetaminophen W/ Codeine [Tylenol W/ CODEINE #3] 1 ea PO BEDTIME PRN 06/05/19 Albuterol Sulfate [Ventolin Hfa] 108 mcg IN PRN PRN 06/05/19 Citalopram Hydrobromide 40 mg PO QAM 06/05/19 Cyclobenzaprine HCl [Flexeril] 5 mg PO BEDTIME 06/05/19 Fenofibrate 145 mg PO DAILY 06/05/19 Metoprolol Tartrate 25 mg PO BID 06/05/19 Omeprazole [Prilosec Cap] 20 mg PO BID 06/05/19 Ondansetron Odt [Zofran Odt] 8 mg PO Q6HRS PRN 06/05/19 Pyridoxine HCl [Vitamin B-6] 100 mg PO DAILY 06/05/19 Sucralfate 1 gm PO QID 06/05/19 Theophylline [Fam-24] 150 mg PO DAILY@0700 06/05/19 Theophylline [Fam-24] 300 mg PO BEDTIME 06/05/19 Benzonatate Perles [Tessalon Perles] 100 mg PO Q6H PRN #20 cap 09/20/19 Furosemide Tab [Lasix Tab] 40 mg PO QAM 09/20/19 Gabapentin [Neurontin] 100 mg PO BEDTIME PRN 09/20/19 Potassium Chloride [Potassium Chloride ER] 20 meq PO BID 09/20/19 Prednisone 60 mg PO DAILY 5 Days #15 tab 09/20/19 Turmeric (Curcuma Longa) [Turmeric] 500 mg PO DAILY 09/20/19 levoFLOXacin [Levaquin] 500 mg PO DAILY #7 tab 09/20/19 Review of Systems - Review of Systems Constitutional: Denies: chills, fever, weakness EENTM: Denies: nose congestion, throat pain, mouth pain Respiratory: States: cough, short of breath, wheezing Cardiology: Denies: chest pain, edema, palpitations, syncope Gastrointestinal/Abdominal: Denies: abdominal pain, diarrhea, nausea, vomiting Genitourinary: Denies: dysuria, hematuria Musculoskeletal: Denies: back pain Skin: States: no symptoms reported Neurological: States: no symptoms reported All other Systems: Reviewed and Negative Past Medical History (General) - Patient Medical History Hx Seizures: No Hx Stroke: No Hx Dementia: No Hx Asthma: No Hx of COPD: Yes Hx Cardiac Disorders: Yes - a fib Hx Congestive Heart Failure: Yes Hx Pacemaker: No Hx Hypertension: Yes Hx Thyroid Disease: No Hx Diabetes: No Hx Gastroesophageal Reflux: Yes - microcytic colitis, hitatal hernia, GI bleed Hx Renal Disease: No Hx Cancer: Yes - cervical Hx of HIV: No Hx Hepatitis C: No Hx MRSA: No Surgical History: Hysterectomy - Vaccination History Hx Tetanus, Diphtheria Vaccination: No Hx Influenza Vaccination: Yes Hx Pneumococcal Vaccination: Yes - Social History Hx Tobacco Use: Yes Hx Chewing Tobacco Use: No Hx Alcohol Use: No Hx Substance Use: No Hx Substance Use Treatment: No Hx Depression: No Hx Physical Abuse: No Hx Emotional Abuse: No Hx Suspected Abuse: No - Female History Patient : No Family Medical History - Family History Father Family History: No Known Living Status: Hx Cardiac Disease: Yes Hx Family;Other: Respiratory dz Mother Family History: No Known Living Status: Hx Cardiac Disease: Yes Physical Exam - Physical Exam General Appearance: Alert, Comfortable, No apparent distress Neck: non-tender, full range of motion, supple Respiratory: chest non-tender, no respiratory distress, other - Speaks in full sentences. No tachypnea. Good air mevement with bilateral expiratory wheezes. Cardiovascular/Chest: no edema, no JVD, irregularly irregular Gastrointestinal/Abdominal: non tender, soft, no pulsatile mass Extremity: normal range of motion, non-tender, no calf tenderness Neurologic: no motor/sensory deficits, alert, normal mood/affect Skin Exam: normal color, warm/dry Progress - Progress Progress: 09/20/19 01:41 Pt has h/o chronic afib, COPD, CKD. Presents with 2 day h/o cough and wheezing typical of her usual COPD exacerbation. She has no hypoxia or respiratory distress. Rhythm is controlled afib. Feels improved post neb treatment. CXR and labs reassuring. Will continue albuterol nebs at home and add Levaquin and Prednisone and f/u with pcp in 1-2 days for recheck. SRP given. - Results/Orders Results/Orders: CXR No acute process 09/20/19 01:01 IV:Start .ONCE 09/20/19 01:02 EKG Assessment ONCE 09/20/19 01:15 EKG .ONCE Laboratory Results - last 24 hr 09/20/19 09/20/19 01:12 01:12 WBC 8.5 RBC 3.76 L Hgb 10.9 L Hct 33.4 L MCV 88.7 MCH 28.9 MCHC 32.6 L RDW 14.0 Plt Count 241 MPV 8.2 Absolute Neuts (auto) 7.10 H Absolute Lymphs (auto) 0.90 L Absolute Monos (auto) 0.40 Absolute Eos (auto) 0.10 Absolute Basos (auto) 0.00 Neutrophils % 83.6 H Lymphocytes % 10.3 L Monocytes % 4.2 Eosinophils % 1.5 Basophils % 0.4 Sodium 140 Potassium 3.7 Chloride 100 L Carbon Dioxide 30 Anion Gap 13.7 BUN 44 H Creatinine 1.49 H BUN/Creatinine Ratio 29.5 H Random Glucose 125 H Serum Osmolality 292.1 Calcium 9.5 Total Bilirubin 0.6 AST 40 ALT 35 Alkaline Phosphatase 32 L Serum Total Protein 7.6 Albumin 4.1 Globulin 3.5 Albumin/Globulin Ratio 1.2 - EKG/XRAY/CT EKG: Fibrillation Comments: afib with rate 114, nml QRS interval, nonspecific ST abnormality Departure - Departure Clinical Impression: COPD with acute exacerbation Atrial fibrillation Qualifiers: Atrial fibrillation type: unspecified persistent Qualified Code(s): I48.19 - Other persistent atrial fibrillation; I48.1 - Persistent atrial fibrillation Time of Disposition: 01:39 Disposition: Discharge to Home or Self Care Condition: Good Departure Forms: ED Discharge - Pt. Copy, Patient Portal Self Enrollment Instructions: COPD Including Emphysema (DC) Diet: resume usual diet Activity: increase activity as tolerated Referrals: JACKIE DUMAS [Primary Care Provider] - 1-2 Days Prescriptions: Benzonatate Perles [Tessalon Perles] 100 mg PO Q6H PRN #20 cap PRN Reason: Cough levoFLOXacin [Levaquin] 500 mg PO DAILY #7 tab Prednisone 60 mg PO DAILY 5 Days #15 tab Home Medications: Ambulatory Orders Ipratropium/Albuterol [Duoneb] 3 ml NEB Q4HR PRN 03/04/17 Rivaroxaban [Xarelto] 15 mg PO BEDTIME 05/02/19 Budesonide (Inhalation) [Pulmicort] 1 mg IN BID 05/11/19 Cholecalciferol [Vitamin D] 1,000 unit PO DAILY 05/11/19 Ferrous Sulfate [Iron] 65 mg PO DAILY 05/11/19 Acetaminophen W/ Codeine [Tylenol W/ CODEINE #3] 1 ea PO BEDTIME PRN 06/05/19 Albuterol Sulfate [Ventolin Hfa] 108 mcg IN PRN PRN 06/05/19 Citalopram Hydrobromide 40 mg PO QAM 06/05/19 Cyclobenzaprine HCl [Flexeril] 5 mg PO BEDTIME 06/05/19 Fenofibrate 145 mg PO DAILY 06/05/19 Metoprolol Tartrate 25 mg PO BID 06/05/19 Omeprazole [Prilosec Cap] 20 mg PO BID 06/05/19 Ondansetron Odt [Zofran Odt] 8 mg PO Q6HRS PRN 06/05/19 Pyridoxine HCl [Vitamin B-6] 100 mg PO DAILY 06/05/19 Sucralfate 1 gm PO QID 06/05/19 Theophylline [Fam-24] 150 mg PO DAILY@0700 06/05/19 Theophylline [Fam-24] 300 mg PO BEDTIME 06/05/19 Benzonatate Perles [Tessalon Perles] 100 mg PO Q6H PRN #20 cap 09/20/19 Furosemide Tab [Lasix Tab] 40 mg PO QAM 09/20/19 Gabapentin [Neurontin] 100 mg PO BEDTIME PRN 09/20/19 Potassium Chloride [Potassium Chloride ER] 20 meq PO BID 09/20/19 Prednisone 60 mg PO DAILY 5 Days #15 tab 09/20/19 Turmeric (Curcuma Longa) [Turmeric] 500 mg PO DAILY 09/20/19 levoFLOXacin [Levaquin] 500 mg PO DAILY #7 tab 09/20/19
[2019-09-20] MEDS: IPRATROPIUM/ALBUTEROL 3 ML VIAL NEB ONE (01:10)
[2019-09-20] MEDS: methylPREDNISolone SODIUM SUC 125 MG/2 ML VIAL IV ONE (01:24)
--- NOTE | 2019-09-20 01:33 | RAD ---
EXAM DESCRIPTION: Chest,1 View CLINICAL HISTORY: cough, SOB COMPARISON: 06/07/2019 FINDINGS: Single frontal view of the chest. Cardiomediastinal silhouette: Atherosclerotic calcification and tortuosity of the thoracic aorta. Cardiomegaly. Lungs: No consolidation, pneumothorax, or pleural effusion. Bones: No acute osseous abnormality. Leads overlie the chest. Upper abdomen: No abnormality identified. IMPRESSION: 1. No acute pulmonary process identified. Cardia megaly. Electronically signed by: Dennis Reyes 09/20/2019 1:31 AM CDT
[2019-09-20 01:46] VITALS: BP 96/66; O2SAT 94
== END 2019-09-20 01:46 | disposition home or self-care (01) ==
LOC: ER 00:34
DX: J44.1 Chronic obstructive pulmonary disease with (acute) exacerbation (principal); R06.02 Shortness of breath; I48.19 Other persistent atrial fibrillation; F17.200 Nicotine dependence, unspecified, uncomplicated
CPT/HCPCS: 71045; 80053; 85025; 93005; 94640; J2930; J7620

== ENCOUNTER 2019-10-03 20:59 | Emergency (ER) | payer MEDICARE ==
[2019-10-03] MEDS ORDERED: IPRATROPIUM/ALBUTEROL 3 ML VIAL NEB ONE ×2 (21:32→21:34)
[2019-10-03] MEDS ORDERED: methylPREDNISolone SODIUM SUC 125 MG/2 ML VIAL IV ONE (21:32)
--- NOTE | 2019-10-03 21:45 | ED.PDOC ---
History of Present Illness - General Chief Complaint: Respiratory Problem Stated Complaint: SOB since last night Time Seen by Provider: 10/03/19 21:27 Source: patient, Vital Signs reviewed, family, old records Exam Limitations: no limitations - History of Present Illness Initial Comments: Pt is a 78 yo female with PMH of COPD and afib who is on 2L of O2 at home continuously presents to ED with son for 2 day h/o shortness of breath and wheezing that is typical of her COPD exacerbations. She was seen in ED 2 weeks ago for same and treated with steroids with improvement of her symptoms until yesterday. Denies fever, chills, CP. Has had mild nonproductive cough. Has used Singulair, oxygen and albuterol MDI at home with some relief. Allergies/Adverse Reactions: Allergies Rosuvastatin [From Crestor] Allergy (Severe, Verified 10/03/19 21:31) Rash Erythromycin Allergy (Verified 09/20/19 00:57) Nausea Penicillins Allergy (Verified 10/03/19 21:31) Pentazocine [From Talwin Compound] Allergy (Verified 05/10/19 11:10) Rash Rifampin Allergy (Verified 09/20/19 00:57) Rash Atorvastatin [From Lipitor] Adverse Reaction (Intermediate, Verified 09/20/19 00:57) Other Causes muscle pain Ketorolac Tromethamine [From Toradol] Adverse Reaction (Intermediate, Verified 05/10/19 11:10) Benzodiazepines Adverse Reaction (Verified 10/03/19 21:31) Other Some benzos make patient "ZONED out for days" Warfarin [From Coumadin] Adverse Reaction (Verified 10/03/19 21:31) causes stomach bleeding Home Medications: Ambulatory Orders RX: Ipratropium/Albuterol [Duoneb] 3 ml NEB Q4HR PRN 03/04/17 RX: Rivaroxaban [Xarelto] 15 mg PO BEDTIME 05/02/19 RX: Budesonide (Inhalation) [Pulmicort] 1 mg IN BID 05/11/19 RX: Cholecalciferol [Vitamin D] 1,000 unit PO DAILY 05/11/19 RX: Ferrous Sulfate [Iron] 65 mg PO DAILY 05/11/19 RX: Acetaminophen W/ Codeine [Tylenol W/ CODEINE #3] 1 ea PO BEDTIME PRN 06/05/19 RX: Albuterol Sulfate [Ventolin Hfa] 108 mcg IN PRN PRN 06/05/19 RX: Citalopram Hydrobromide 40 mg PO QAM 06/05/19 RX: Cyclobenzaprine HCl [Flexeril] 5 mg PO BEDTIME 06/05/19 RX: Fenofibrate 145 mg PO DAILY 06/05/19 RX: Metoprolol Tartrate 25 mg PO BID 06/05/19 RX: Omeprazole [Prilosec Cap] 20 mg PO BID 06/05/19 RX: Ondansetron Odt [Zofran Odt] 8 mg PO Q6HRS PRN 06/05/19 RX: Pyridoxine HCl [Vitamin B-6] 100 mg PO DAILY 06/05/19 RX: Sucralfate 1 gm PO QID 06/05/19 RX: Theophylline [Fam-24] 150 mg PO DAILY@0700 06/05/19 RX: Theophylline [Fam-24] 300 mg PO BEDTIME 06/05/19 Benzonatate Perles [Tessalon Perles] 100 mg PO Q6H PRN #20 cap 09/20/19 Potassium Chloride [Potassium Chloride ER] 20 meq PO BID 09/20/19 RX: Furosemide Tab [Lasix Tab] 40 mg PO QAM 09/20/19 RX: Gabapentin [Neurontin] 100 mg PO BEDTIME PRN 09/20/19 RX: Prednisone 60 mg PO DAILY 5 Days #15 tab 09/20/19 Turmeric (Curcuma Longa) [Turmeric] 500 mg PO DAILY 09/20/19 levoFLOXacin [Levaquin] 500 mg PO DAILY #7 tab 09/20/19 Azithromycin [Zithromax Z-Curtis] 250 mg PO DAILY #6 tab 10/03/19 Methylprednisolone [Medrol Dose Curtis] 4 mg PO DAILY 6 Days #21 tab 10/03/19 Review of Systems - Review of Systems Constitutional: Denies: chills, fever, weakness EENTM: States: nose congestion. Denies: blurred vision, throat pain Respiratory: States: cough, short of breath, wheezing Cardiology: Denies: chest pain, edema, palpitations, syncope Gastrointestinal/Abdominal: Denies: abdominal pain, diarrhea, nausea, vomiting Musculoskeletal: Denies: back pain, neck pain Skin: States: no symptoms reported Neurological: Denies: headache, paresthesia All other Systems: Reviewed and Negative Past Medical History (General) - Patient Medical History Hx Seizures: No Hx Stroke: No Hx Dementia: No Hx Asthma: No Hx of COPD: Yes Hx Cardiac Disorders: Yes - a fib Hx Congestive Heart Failure: Yes Hx Pacemaker: No Hx Hypertension: Yes Hx Thyroid Disease: No Hx Diabetes: No Hx Gastroesophageal Reflux: Yes - microcytic colitis, hitatal hernia, GI bleed Hx Renal Disease: No Hx Cancer: Yes - cervical Hx of HIV: No Hx Hepatitis C: No Hx MRSA: No Surgical History: Hysterectomy - Vaccination History Hx Tetanus, Diphtheria Vaccination: No Hx Influenza Vaccination: Yes Hx Pneumococcal Vaccination: Yes - Social History Hx Tobacco Use: Yes Hx Chewing Tobacco Use: No Hx Alcohol Use: No Hx Substance Use: No Hx Substance Use Treatment: No Hx Depression: No Hx Physical Abuse: No Hx Emotional Abuse: No Hx Suspected Abuse: No - Female History Patient : No Family Medical History - Family History Father Family History: No Known Living Status: Hx Cardiac Disease: Yes Hx Family;Other: Respiratory dz Mother Family History: No Known Living Status: Hx Cardiac Disease: Yes Physical Exam - Physical Exam General Appearance: Alert, Comfortable, No apparent distress Eyes, Ears, Nose, Throat Exam: pharynx normal Neck: full range of motion, supple, normal inspection Respiratory: chest non-tender, other - tachypneic, poor air movement with bilaterral wheezes Cardiovascular/Chest: no edema, tachycardia, irregularly irregular Gastrointestinal/Abdominal: non tender, soft, no pulsatile mass Extremity: normal range of motion, non-tender, no pedal edema, no calf tenderness Neurologic: no motor/sensory deficits, alert, normal mood/affect Skin Exam: normal color, warm/dry Progress - Progress Progress: 10/03/19 22:23 Pt presents with her usual symptoms of COPD exacerbation. Pt in afib with rate in 110's. Will give duoneb and monitor for tachycardia. 10/03/19 22:57 Pt feels improved. on exam, tachypnea has resolved. Has good air movement with still some wheezing. Pulse is afib 120-140. I think due to albuterol. Will stop treatment and monitor. Pt is requesting to go home and does not want to be admitted. 10/03/19 22:50 I have d/w pt and son results. She feels significantly improved post long neb treatment and is requesting to go home. I have again offered admission for continued treatment of wheezing, but pt wishes to go home and son agrees and states he will stay with her and can bring her back if she has difficulty breathing. She has oxygen at home and albuterol and duoneb solution for nebs. Pulse is afib wth rate 115. i will treat with steroids and z pack and have asked her to f/u with pcp in 1-2 days for recheck. SRP given. 10/04/19 06:46 - Results/Orders Results/Orders: CHEST XRAY EXAM DESCRIPTION: Chest,1 View CLINICAL HISTORY: 78 years Female short of breath COMPARISON: 09/20/2019. FINDINGS: Stable mild cardiomegaly. Mild atherosclerotic calcification and tortuosity in the thoracic aorta. No consolidating infiltrates or pleural effusions. No pneumothorax. No significant changes are visualized compared to the prior study. IMPRESSION: No acute abnormality is identified. 10/03/19 21:31 IV:Start .ONCE 10/03/19 21:32 EKG Assessment ONCE 10/03/19 21:45 EKG .ONCE Laboratory Results - last 24 hr 10/03/19 10/03/19 10/03/19 22:20 22:20 22:30 WBC 16.5 H RBC 3.79 L Hgb 11.0 L Hct 33.8 L MCV 89.3 MCH 29.1 MCHC 32.6 L RDW 14.5 Plt Count 221 MPV 8.2 Absolute Neuts (auto) 15.20 H Absolute Lymphs (auto) 0.60 L Absolute Monos (auto) 0.60 Absolute Eos (auto) 0.00 Absolute Basos (auto) 0.00 Neutrophils % 92.4 H Lymphocytes % 3.6 L Monocytes % 3.6 Eosinophils % 0.2 L Basophils % 0.2 PT 11.5 H INR 1.16 H PTT (SP) 23.5 Sodium 137 Potassium 4.0 Chloride 105 Carbon Dioxide 25 Anion Gap 11.0 L BUN 32 H Creatinine 1.25 BUN/Creatinine Ratio 25.6 H Random Glucose 128 H Serum Osmolality 282.4 Calcium 10.0 Total Bilirubin 0.6 AST 39 ALT 46 Alkaline Phosphatase 31 L Serum Total Protein 7.2 Albumin 3.8 Globulin 3.4 Albumin/Globulin Ratio 1.1 - EKG/XRAY/CT Comments: afib, rate 139, normal QRS interval, nonspecific ST abnormality Departure - Departure Clinical Impression: Acute exacerbation of chronic obstructive pulmonary disease (COPD), Leukocytosis, Atrial fibrillation Time of Disposition: 23:06 Disposition: Discharge to Home or Self Care Condition: Good Departure Forms: ED Discharge - Pt. Copy, Patient Portal Self Enrollment Instructions: Chronic Obstructive Pulmonary Disease (COPD) (DC) Diet: resume usual diet Activity: increase activity as tolerated Referrals: JACKIE DUMAS [Primary Care Provider] - 1-2 Days Prescriptions: Azithromycin [Zithromax Z-Curtis] 250 mg PO DAILY #6 tab Methylprednisolone [Medrol Dose Curtis] 4 mg PO DAILY 6 Days #21 tab Home Medications: Ambulatory Orders RX: Ipratropium/Albuterol [Duoneb] 3 ml NEB Q4HR PRN 03/04/17 RX: Rivaroxaban [Xarelto] 15 mg PO BEDTIME 05/02/19 RX: Budesonide (Inhalation) [Pulmicort] 1 mg IN BID 05/11/19 RX: Cholecalciferol [Vitamin D] 1,000 unit PO DAILY 05/11/19 RX: Ferrous Sulfate [Iron] 65 mg PO DAILY 05/11/19 RX: Acetaminophen W/ Codeine [Tylenol W/ CODEINE #3] 1 ea PO BEDTIME PRN 06/05/19 RX: Albuterol Sulfate [Ventolin Hfa] 108 mcg IN PRN PRN 06/05/19 RX: Citalopram Hydrobromide 40 mg PO QAM 06/05/19 RX: Cyclobenzaprine HCl [Flexeril] 5 mg PO BEDTIME 06/05/19 RX: Fenofibrate 145 mg PO DAILY 06/05/19 RX: Metoprolol Tartrate 25 mg PO BID 06/05/19 RX: Omeprazole [Prilosec Cap] 20 mg PO BID 06/05/19 RX: Ondansetron Odt [Zofran Odt] 8 mg PO Q6HRS PRN 06/05/19 RX: Pyridoxine HCl [Vitamin B-6] 100 mg PO DAILY 06/05/19 RX: Sucralfate 1 gm PO QID 06/05/19 RX: Theophylline [Fam-24] 150 mg PO DAILY@0700 06/05/19 RX: Theophylline [Fam-24] 300 mg PO BEDTIME 06/05/19 Benzonatate Perles [Tessalon Perles] 100 mg PO Q6H PRN #20 cap 09/20/19 Potassium Chloride [Potassium Chloride ER] 20 meq PO BID 09/20/19 RX: Furosemide Tab [Lasix Tab] 40 mg PO QAM 09/20/19 RX: Gabapentin [Neurontin] 100 mg PO BEDTIME PRN 09/20/19 RX: Prednisone 60 mg PO DAILY 5 Days #15 tab 09/20/19 Turmeric (Curcuma Longa) [Turmeric] 500 mg PO DAILY 09/20/19 levoFLOXacin [Levaquin] 500 mg PO DAILY #7 tab 09/20/19 Azithromycin [Zithromax Z-Curtis] 250 mg PO DAILY #6 tab 10/03/19 Methylprednisolone [Medrol Dose Curtis] 4 mg PO DAILY 6 Days #21 tab 10/03/19
[2019-10-03] MEDS ORDERED: IPRATROPIUM BROMIDE NEBS 0.5 MG/2.5 ML VIAL NEB ONE (22:03)
[2019-10-03] MEDS ORDERED: ALBUTEROL SULFATE 2.5 MG/3 ML VIAL NEB ONE (22:03)
[2019-10-03] MEDS ORDERED: ALBUTEROL SULFATE NEBS 15 MG, IPRATROPIUM BROMIDE NEBS 0.5 MG NEB ONE ×2 (22:06)
--- NOTE | 2019-10-03 22:43 | RAD ---
EXAM DESCRIPTION: Chest,1 View CLINICAL HISTORY: 78 years Female short of breath COMPARISON: 09/20/2019. FINDINGS: Stable mild cardiomegaly. Mild atherosclerotic calcification and tortuosity in the thoracic aorta. No consolidating infiltrates or pleural effusions. No pneumothorax. No significant changes are visualized compared to the prior study. IMPRESSION: No acute abnormality is identified. Electronically signed by: Avni Jasso MD 10/03/2019 10:42 PM CDT
[2019-10-03 23:29] VITALS: BP 105/78; TEMP 98.5; O2SAT 98
== END 2019-10-03 23:20 | disposition home or self-care (01) ==
LOC: ER 20:59
DX: J44.1 Chronic obstructive pulmonary disease with (acute) exacerbation (principal); I48.91 Unspecified atrial fibrillation; I50.9 Heart failure, unspecified; I10 Essential (primary) hypertension; D72.829 Elevated white blood cell count, unspecified; F17.200 Nicotine dependence, unspecified, uncomplicated; Z99.81 Dependence on supplemental oxygen; Z79.899 Other long term (current) drug therapy
CPT/HCPCS: 71045; 80053; 85025; 85610; 85730; 93005; 94644; J2930; J7611; J7644

== ENCOUNTER 2019-11-09 05:50 | Emergency (ER) | payer MEDICARE ==
--- NOTE | 2019-11-09 06:29 | ED.PDOC ---
History of Present Illness - General Chief Complaint: Trauma Stated Complaint: I fell when I was standing up off the toilet Time Seen by Provider: 11/09/19 06:10 Source: patient, RN notes reviewed, Vital Signs reviewed, family - Son Exam Limitations: no limitations - History of Present Illness Initial Comments: Patient is a 78-year-old white female who presents with complaints of left knee pain and shortness of breath. Patient was just getting up off the toilet this morning when she slipped and fell and struck her left knee on the floor. Left knee is swollen and has pain, throbbing in nature. It is moderate in intensity and is nonradiating. She additionally has some swelling in that left knee. Pain is worse with palpation or movement and better with immobilization. Patient's shortness of breath has been worsening over the last 2 to 3 days. She has been taking her neb treatments as directed. Patient states she has a cough, nonproductive. Timing/Duration: 1-3 hours Severity: moderate Improving Factors: immobilization Worsening Factors: movement Associated Symptoms: cough, shortness of breath Allergies/Adverse Reactions: Allergies Rosuvastatin [From Crestor] Allergy (Severe, Verified 10/03/19 21:31) Rash Erythromycin Allergy (Verified 09/20/19 00:57) Nausea Penicillins Allergy (Verified 10/03/19 21:31) Pentazocine [From Talwin Compound] Allergy (Verified 05/10/19 11:10) Rash Rifampin Allergy (Verified 09/20/19 00:57) Rash Atorvastatin [From Lipitor] Adverse Reaction (Intermediate, Verified 09/20/19 00:57) Other Causes muscle pain Ketorolac Tromethamine [From Toradol] Adverse Reaction (Intermediate, Verified 05/10/19 11:10) Benzodiazepines Adverse Reaction (Verified 10/03/19 21:31) Other Some benzos make patient "ZONED out for days" Warfarin [From Coumadin] Adverse Reaction (Verified 10/03/19 21:31) causes stomach bleeding Home Medications: Ambulatory Orders Ipratropium/Albuterol [Duoneb] 3 ml NEB Q4HR PRN 03/04/17 Rivaroxaban [Xarelto] 15 mg PO BEDTIME 05/02/19 Budesonide (Inhalation) [Pulmicort] 1 mg IN BID 05/11/19 Cholecalciferol [Vitamin D] 1,000 unit PO DAILY 05/11/19 Ferrous Sulfate [Iron] 65 mg PO DAILY 05/11/19 Acetaminophen W/ Codeine [Tylenol W/ CODEINE #3] 1 ea PO BEDTIME PRN 06/05/19 Albuterol Sulfate [Ventolin Hfa] 108 mcg IN PRN PRN 06/05/19 Citalopram Hydrobromide 40 mg PO QAM 06/05/19 Cyclobenzaprine HCl [Flexeril] 5 mg PO BEDTIME 06/05/19 Fenofibrate 145 mg PO DAILY 06/05/19 Metoprolol Tartrate 25 mg PO BID 06/05/19 Omeprazole [Prilosec Cap] 20 mg PO BID 06/05/19 Ondansetron Odt [Zofran Odt] 8 mg PO Q6HRS PRN 06/05/19 Pyridoxine HCl [Vitamin B-6] 100 mg PO DAILY 06/05/19 Sucralfate 1 gm PO QID 06/05/19 Theophylline [Fam-24] 150 mg PO DAILY@0700 06/05/19 Furosemide Tab [Lasix Tab] 40 mg PO QAM 09/20/19 Gabapentin [Neurontin] 100 mg PO BEDTIME PRN 09/20/19 Potassium Chloride [Potassium Chloride ER] 20 meq PO BID 09/20/19 Turmeric (Curcuma Longa) [Turmeric] 500 mg PO DAILY 09/20/19 levoFLOXacin [Levaquin] 500 mg PO DAILY #7 tab 09/20/19 Methylprednisolone [Medrol Dose Curtis] 4 mg PO DAILY 6 Days #21 tab 11/09/19 Review of Systems - Review of Systems Constitutional: States: no symptoms reported, see HPI. Denies: chills, fever, malaise EENTM: States: no symptoms reported. Denies: eye pain, double vision, nose congestion, throat pain, throat swelling Respiratory: States: see HPI, cough, short of breath. Denies: stridor, wheezing Cardiology: States: palpitations - Patient has history of atrial fibrillation and currently has heart rate between 101 30s.. Denies: chest pain, syncope Gastrointestinal/Abdominal: States: no symptoms reported. Denies: abdominal pain, diarrhea, nausea, vomiting Genitourinary: States: no symptoms reported Musculoskeletal: States: see HPI, joint pain, joint swelling - Left knee. Denies: back pain, neck pain Skin: States: change in color - Status post fall she has bruising to the left knee. Denies: rash Neurological: States: no symptoms reported. Denies: headache, numbness, paresthesia Endocrine: States: no symptoms reported Hematologic/Lymphatic: States: no symptoms reported All other Systems: No Change from Baseline Past Medical History (General) - Patient Medical History Hx Seizures: No Hx Stroke: No Hx Dementia: No Hx Asthma: No Hx of COPD: Yes Hx Cardiac Disorders: Yes - a fib Hx Congestive Heart Failure: No Hx Pacemaker: No Hx Hypertension: Yes Hx Thyroid Disease: No Hx Diabetes: No Hx Gastroesophageal Reflux: Yes - microcytic colitis, hitatal hernia, GI bleed Hx Renal Disease: No Hx Cancer: Yes - cervical Hx of HIV: No Hx Hepatitis C: No Hx MRSA: No - Vaccination History Hx Tetanus, Diphtheria Vaccination: No Hx Influenza Vaccination: Yes Hx Pneumococcal Vaccination: Yes - Social History Hx Tobacco Use: Yes Hx Chewing Tobacco Use: No Hx Alcohol Use: No Hx Substance Use: No Hx Substance Use Treatment: No Hx Depression: No Hx Physical Abuse: No Hx Emotional Abuse: No Hx Suspected Abuse: No - Female History Patient : No Family Medical History - Family History Father Family History: No Known Living Status: Hx Cardiac Disease: Yes Hx Family;Other: Respiratory dz Mother Family History: No Known Living Status: Hx Cardiac Disease: Yes Physical Exam - Physical Exam General Appearance: Alert, Anxious, Emaciated, Frail, Well Developed, Well Groomed, Well Hydrated, Well Nourished Ears, Nose, Throat: hearing grossly normal, normal ENT inspection, normal pharynx Neck: non-tender, full range of motion, supple, normal inspection Respiratory: chest non-tender, no accessory muscle use, respiratory distress - Mild, decreased breath sounds - Diffusely throughout, rhonchi - Diffusely throughout Cardiovascular/Chest: normal peripheral pulses, no edema, no gallop, tac hycardia, irregularly irregular Peripheral Pulses: radial,right: 2+, radial,left: 2+ Gastrointestinal/Abdominal: normal bowel sounds, non tender, soft Back Exam: normal inspection, no CVA tenderness, no vertebral tenderness Extremity: swelling - Left knee with moderate swelling. Neurologic: stitch separator II-XII nml as tested, no motor/sensory deficits, alert, normal mood/affect Skin Exam: warm/dry, other - Left knee is purple and swollen along the anterior aspect of the knee inferior to the patella. It is tender to palpation. There is no crepitus. Lymphatic: no adenopathy Progress - Progress Progress: Differential diagnosis: Pneumonia, patellar fracture, tibia fracture, knee contusion among others. 11/09/19 06:49 No fracture on the knee x-ray. Chest x-ray does not show any pneumonia. She is no acute infectious disease or consolidation at this time. Patient is getting albuterol breathing treatments and her breathing is improving. Plan on discharge home on a Medrol Dosepak. At this time, I do not believe she needs antibiotics. I discussed this plan of care with the patient and her son and they voiced understanding and agreement. Avni Michaud M.D. #[id number] - Results/Orders Results/Orders: EXAM: XR Chest, 1 View CLINICAL HISTORY: The patient is 78 years old and is Female; sob TECHNIQUE: Fr ontal view of the chest. COMPARISON: Chest radiograph from 10/03/2019 FINDINGS: LUNGS: Unremarkable. No consolidation. PLEURAL SPACE: Unremarkable. No pneumothorax. HEART: Stable mild enlargement of the cardiac silhouette. MEDIASTINUM: Unremarkable. BONES/JOINTS: No acute osseous findings. VASCULATURE: Atherosclerotic calcifications are visualized within the aorta. IMPRESSION: No acute findings visualized in the chest. Electronically signed by: Madelyn Torrez MD 11/09/2019 6:41 AM CDT EXAM: XR Left Knee Complete, 4 or More Views CLINICAL HISTORY: The patient is 78 years old and is Female; fall pain TECHNIQUE: Four or more views of the left knee. COMPARISON: No relevant prior studies available. FINDINGS: BONES/JOINTS: Unremarkable. No acute fracture. No dislocation. SOFT TISSUES: Soft tissue swelling of the anterior aspect of the knee is present. VASCULATURE: Atherosclerosis of the vasculature is present. IMPRESSION: Soft tissue swelling of the anterior aspect of the knee is present. No underlying acute bony abnormality. Electronically signed by: Mikaela Kee MD 11/09/2019 6:41 AM Vital Signs 11/09/19 06:07 Temperature 97.5 F L Pulse Rate [ 104 H monitor] Respiratory 20 Rate Blood Pressure 105/76 [Left Arm] O2 Sat by Pulse 92 L Oximetry Departure - Departure Clinical Impression: Hematoma, COPD with exacerbation, Atrial fibrillation with RVR Fall Qualifiers: Encounter type: initial encounter Qualified Code(s): W19.XXXA - Unspecified fall, initial encounter Contusion of knee, left Qualifiers: Encounter type: initial encounter Qualified Code(s): S80.02XA - Contusion of left knee, initial encounter Time of Disposition: 07:00 Disposition: Discharge to Home or Self Care Condition: Good Departure Forms: ED Discharge - Pt. Copy, Patient Portal Self Enrollment Instructions: Exacerbation of COPD (DC), Atrial Fibrillation (DC), Contusion (DC) Diet: resume usual diet Activity: ambulate only with walker, increase activity as tolerated Referrals: JACKIE DUMAS [Primary Care Provider] - 1-5 Days Prescriptions: Methylprednisolone [Medrol Dose Curtis] 4 mg PO DAILY 6 Days #21 tab Home Medications: Ambulatory Orders Ipratropium/Albuterol [Duoneb] 3 ml NEB Q4HR PRN 03/04/17 Rivaroxaban [Xarelto] 15 mg PO BEDTIME 05/02/19 Budesonide (Inhalation) [Pulmicort] 1 mg IN BID 05/11/19 Cholecalciferol [Vitamin D] 1,000 unit PO DAILY 05/11/19 Ferrous Sulfate [Iron] 65 mg PO DAILY 05/11/19 Acetaminophen W/ Codeine [Tylenol W/ CODEINE #3] 1 ea PO BEDTIME PRN 06/05/19 Albuterol Sulfate [Ventolin Hfa] 108 mcg IN PRN PRN 06/05/19 Citalopram Hydrobromide 40 mg PO QAM 06/05/19 Cyclobenzaprine HCl [Flexeril] 5 mg PO BEDTIME 06/05/19 Fenofibrate 145 mg PO DAILY 06/05/19 Metoprolol Tartrate 25 mg PO BID 06/05/19 Omeprazole [Prilosec Cap] 20 mg PO BID 06/05/19 Ondansetron Odt [Zofran Odt] 8 mg PO Q6HRS PRN 06/05/19 Pyridoxine HCl [Vitamin B-6] 100 mg PO DAILY 06/05/19 Sucralfate 1 gm PO QID 06/05/19 Theophylline [Fam-24] 150 mg PO DAILY@0700 06/05/19 Furosemide Tab [Lasix Tab] 40 mg PO QAM 09/20/19 Gabapentin [Neurontin] 100 mg PO BEDTIME PRN 09/20/19 Potassium Chloride [Potassium Chloride ER] 20 meq PO BID 09/20/19 Turmeric (Curcuma Longa) [Turmeric] 500 mg PO DAILY 09/20/19 levoFLOXacin [Levaquin] 500 mg PO DAILY #7 tab 09/20/19 Methylprednisolone [Medrol Dose Curtis] 4 mg PO DAILY 6 Days #21 tab 11/09/19
[2019-11-09] MEDS ORDERED: ALBUTEROL SULFATE 2.5 MG/3 ML VIAL NEB ONE (06:33)
--- NOTE | 2019-11-09 06:43 | RAD ---
EXAM: XR Left Knee Complete, 4 or More Views CLINICAL HISTORY: The patient is 78 years old and is Female; fall pain TECHNIQUE: Four or more views of the left knee. COMPARISON: No relevant prior studies available. FINDINGS: BONES/JOINTS: Unremarkable. No acute fracture. No dislocation. SOFT TISSUES: Soft tissue swelling of the anterior aspect of the knee is present. VASCULATURE: Atherosclerosis of the vasculature is present. IMPRESSION: Soft tissue swelling of the anterior aspect of the knee is present. No underlying acute bony abnormality. Electronically signed by: Mikaela Kee MD 11/09/2019 6:41 AM CDT
--- NOTE | 2019-11-09 06:43 | RAD ---
EXAM: XR Chest, 1 View CLINICAL HISTORY: The patient is 78 years old and is Female; sob TECHNIQUE: Frontal view of the chest. COMPARISON: Chest radiograph from 10/03/2019 FINDINGS: LUNGS: Unremarkable. No consolidation. PLEURAL SPACE: Unremarkable. No pneumothorax. HEART: Stable mild enlargement of the cardiac silhouette. MEDIASTINUM: Unremarkable. BONES/JOINTS: No acute osseous findings. VASCULATURE: Atherosclerotic calcifications are visualized within the aorta. IMPRESSION: No acute findings visualized in the chest. Electronically signed by: Madelyn Torrez MD 11/09/2019 6:41 AM CDT
[2019-11-09 07:02] VITALS: O2SAT 98
[2019-11-09 07:17] VITALS: BP 96/67; TEMP 97.6
== END 2019-11-09 07:05 | disposition home or self-care (01) ==
LOC: ER 05:50
DX: J44.1 Chronic obstructive pulmonary disease with (acute) exacerbation (principal); S80.02XA Contusion of left knee, initial encounter; I10 Essential (primary) hypertension; I48.91 Unspecified atrial fibrillation; Z79.899 Other long term (current) drug therapy; W01.0XXA Fall on same level from slipping, tripping and stumbling without subsequent striking against object, initial encounter; Y92.9 Unspecified place or not applicable
CPT/HCPCS: 71045; 73562; 94640; J7611

== ENCOUNTER 2020-01-02 23:46 | Emergency (ER) | payer MEDICARE ==
[2020-01-03] MEDS ORDERED: SODIUM CHLORIDE 0.9% (FLUSH) 10 ML SYG IV PRN (00:06)
[2020-01-03] MEDS ORDERED: ONDANSETRON INJ 4 MG/2 ML VIAL IV ONE (00:06)
--- NOTE | 2020-01-03 00:15 | ED.PDOC ---
History of Present Illness - General Chief Complaint: Cardiovascular Problem Stated Complaint: My heart is beating fast and I am shortof breath Time Seen by Provider: 01/03/20 00:06 Source: patient, RN notes reviewed, Vital Signs reviewed, family - Son Exam Limitations: no limitations - History of Present Illness Initial Comments: Patient is a 79-year-old white female who presents with extreme shortness of breath and palpitations. Patient is in extremis and therefore, review of systems and history of present illness are limited. Patient states that she started feeling more short of breath yesterday. She also noticed the palpitations. Nothing makes the palpitations or shortness of breath better. Exertion makes them both worse. Patient denies any chest pain. The intensity is severe. Timing/Duration: 24 hours, getting worse Severity: severe Location: other - No chest pain chest palpitations or shortness of breath. Activities at Onset: none Improving Factors: nothing Worsening Factors: movement Nitro Today/Relief: no nitro taken today Aspirin Treatment Today: no aspirin today Associated Symptoms: malaise, nausea/vomiting - She only, shortness of breath Allergies/Adverse Reactions: Allergies Rosuvastatin [From Crestor] Allergy (Severe, Verified 10/03/19 21:31) Rash Erythromycin Allergy (Verified 09/20/19 00:57) Nausea Penicillins Allergy (Verified 10/03/19 21:31) Pentazocine [From Talwin Compound] Allergy (Verified 05/10/19 11:10) Rash Rifampin Allergy (Verified 09/20/19 00:57) Rash Atorvastatin [From Lipitor] Adverse Reaction (Intermediate, Verified 09/20/19 00:57) Other Causes muscle pain Ketorolac Tromethamine [From Toradol] Adverse Reaction (Intermediate, Verified 05/10/19 11:10) Benzodiazepines Adverse Reaction (Verified 10/03/19 21:31) Other Some benzos make patient "ZONED out for days" Warfarin [From Coumadin] Adverse Reaction (Verified 10/03/19 21:31) causes stomach bleeding Home Medications: Ambulatory Orders Ipratropium/Albuterol [Duoneb] 3 ml NEB Q4HR PRN 03/04/17 Rivaroxaban [Xarelto] 15 mg PO BEDTIME 05/02/19 Budesonide (Inhalation) [Pulmicort] 1 mg IN BID 05/11/19 Cholecalciferol [Vitamin D] 1,000 unit PO DAILY 05/11/19 Ferrous Sulfate [Iron] 65 mg PO DAILY 05/11/19 Acetaminophen W/ Codeine [Tylenol W/ CODEINE #3] 1 ea PO BEDTIME PRN 06/05/19 Albuterol Sulfate [Ventolin Hfa] 108 mcg IN PRN PRN 06/05/19 Citalopram Hydrobromide 40 mg PO QAM 06/05/19 Cyclobenzaprine HCl [Flexeril] 5 mg PO BEDTIME 06/05/19 Fenofibrate 145 mg PO DAILY 06/05/19 Metoprolol Tartrate 25 mg PO BID 06/05/19 Omeprazole [Prilosec Cap] 20 mg PO BID 06/05/19 Ondansetron Odt [Zofran Odt] 8 mg PO Q6HRS PRN 06/05/19 Pyridoxine HCl [Vitamin B-6] 100 mg PO DAILY 06/05/19 Sucralfate 1 gm PO QID 06/05/19 Theophylline [Fam-24] 150 mg PO DAILY@0700 06/05/19 Furosemide Tab [Lasix Tab] 40 mg PO QAM 09/20/19 Gabapentin [Neurontin] 100 mg PO BEDTIME PRN 09/20/19 Potassium Chloride [Potassium Chloride ER] 20 meq PO BID 09/20/19 Turmeric (Curcuma Longa) [Turmeric] 500 mg PO DAILY 09/20/19 Review of Systems - Review of Systems Constitutional: States: see HPI, malaise, weakness. Denies: chills, fever EENTM: States: no symptoms reported. Denies: eye pain, blurred vision, double vision Respiratory: States: see HPI, short of breath, wheezing. Denies: cough, stridor Cardiology: States: see HPI, palpitations. Denies: chest pain, syncope Gastrointestinal/Abdominal: States: see HPI, nausea. Denies: abdominal pain, vomiting Genitourinary: States: no symptoms reported Musculoskeletal: States: no symptoms reported. Denies: back pain, neck pain Skin: States: change in color - Patient is more pale now. Denies: rash Neurological: States: see HPI, weakness. Denies: headache, numbness, paresthesia, tingling, tremors Endocrine: States: no symptoms reported Hematologic/Lymphatic: States: no symptoms reported All other Systems: No Change from Baseline Past Medical History (General) - Patient Medical History Hx Seizures: No Hx Stroke: No Hx Dementia: No Hx Asthma: No Hx of COPD: Yes Hx Cardiac Disorders: Yes - a fib Hx Congestive Heart Failure: No Hx Pacemaker: No Hx Hypertension: Yes Hx Thyroid Disease: No Hx Diabetes: No Hx Gastroesophageal Reflux: Yes - microcytic colitis, hitatal hernia, GI bleed Hx Renal Disease: No Hx Cancer: Yes - cervical Hx of HIV: No Hx Hepatitis C: No Hx MRSA: No - Vaccination History Hx Tetanus, Diphtheria Vaccination: No Hx Influenza Vaccination: Yes Hx Pneumococcal Vaccination: Yes - Social History Hx Tobacco Use: Yes Hx Chewing Tobacco Use: No Hx Alcohol Use: No Hx Substance Use: No Hx Substance Use Treatment: No Hx Depression: No Hx Physical Abuse: No Hx Emotional Abuse: No Hx Suspected Abuse: No - Female History Patient : No Family Medical History - Family History Father Family History: No Known Living Status: Hx Cardiac Disease: Yes Hx Family;Other: Respiratory dz Mother Family History: No Known Living Status: Hx Cardiac Disease: Yes Physical Exam - Physical Exam General Appearance: Agitated, Alert, Anxious, Obvious distress, Ill Appearing, Well Developed, Well Hydrated, Well Nourished Eyes, Ears, Nose, Throat Exam: PERRL/EOMI, normal ENT inspection, pharynx normal - Except dry mucous membrane Neck: non-tender, full range of motion, supple, normal inspection Respiratory: chest non-tender, respiratory distress - Severe, decreased breath sounds - Usually throughout, accessory muscle use - Intercostal as well as supraclavicular, rhonchi - Usually throughout, wheezing - Diffusely throughout Cardiovascular/Chest: normal peripheral pulses, no edema, tachycardia, ir regularly irregular Peripheral Pulses: radial,right: 2+, radial,left: 2+ Gastrointestinal/Abdominal: normal bowel sounds, non tender, soft Extremity: normal range of motion, non-tender, normal inspection 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 fib with RVR, COVID 19 among others 01/03/20 04:39 Patient is better rate controlled after she is on a Cardizem drip. Chest x-ray shows patchy opacities consistent with pneumonitis. Nasal swab is positive for COVID-19. Plan on admission at outside facility. I discussed this plan of care with the patient and her son and they voiced understanding and agreement with the plan of care. Avni Michaud M.D. #[id number] - Results/Orders Results/Orders: EXAM DESCRIPTION: Chest,1 View CLINICAL HISTORY: 79 years Female, sob COMPARISON: 11/07/2019 TECHNIQUE: Single AP chest radiograph. FINDINGS: Scattered bilateral hazy pulmonary opacities. No pneumothorax or pleural effusion. Normal cardiomediastinal contour. Normal osseous structures. IMPRESSION: Scattered bilateral hazy pulmonary opacities. Differential considerations include edema or multifocal infection, such as viral pneumonitis. Electronically signed by: Mario Urias MD 01/03/2020 1:57 AM EKG performed on 02 January 2020 at 2351 hrs.: Atrial fibrillation with RVR at 155 bpm, ST and T wave abnormalities consistent with inferior lateral ischemia, abnormal EKG. 01/03/20 00:06 Sodium Chloride 0.9% (Flush) [Saline Flush Syringe] 10 ml IV PRN PRN 01/03/20 00:08 IV Care:Saline Lock per Protoc QSHIFT Telemetry .ONCE EKG Stat Pulse Ox Stat 01/03/20 00:09 Pulse Oximetry Assessment DAILY 01/03/20 02:00 diltiaZEM DRIP [Cardizem Drip] 125 mg Sodium Chloride 0.9% 100Ml [NS (NACL 0.9%) 100ml] 100 ml IVPB PRN 01/03/20 02:17 RESPIRATORY PANEL 2 Routine Laboratory Results - last 24 hr 01/03/20 01/03/20 00:15 00:15 WBC 7.8 RBC 4.34 Hgb 12.3 Hct 37.2 MCV 85.7 MCH 28.3 MCHC 33.0 RDW 13.9 Plt Count 295 MPV 8.0 Absolute Neuts (auto) 6.70 Absolute Lymphs (auto) 0.70 L Absolute Monos (auto) 0.30 Absolute Eos (auto) 0.00 Absolute Basos (auto) 0.10 Neutrophils % 85.9 H Lymphocytes % 9.2 L Monocytes % 4.1 Eosinophils % 0.1 L Basophils % 0.7 PT 12.1 H INR 1.22 H PTT (SP) 25.8 Sodium 135 Potassium 3.7 Chloride 94 L Carbon Dioxide 27 Anion Gap 17.7 BUN 41 H Creatinine 1.62 H BUN/Creatinine Ratio 25.3 H Random Glucose 122 H Serum Osmolality 281.5 Calcium 9.8 Magnesium 1.5 L Total Bilirubin 0.5 Direct Bilirubin 0.1 Indirect Bilirubin 0.4 AST 56 H ALT 42 Alkaline Phosphatase 33 L Creatine Kinase 39 CK-MB (CK-2) 2.4 CK-MB (CK-2) % Not Reportable Troponin I 0.02 B-Natriuretic Peptide 366.0 H* Serum Total Protein 7.4 Albumin 3.6 COVID swab was positive Departure - Departure Clinical Impression: COVID-19, Atrial fibrillation with rapid ventricular response Dyspnea Qualifiers: Dyspnea type: acute respiratory distress Qualified Code(s): R06.03 - Acute respiratory distress Time of Disposition: 04:44 Disposition: Transfer to Hospital Condition: Serious Departure Forms: ED Discharge - Pt. Copy, Patient Portal Self Enrollment Instructions: DI for Chest Pain Referrals: JACKIE DUMAS [Primary Care Provider] - 1-2 Weeks Home Medications: Ambulatory Orders Ipratropium/Albuterol [Duoneb] 3 ml NEB Q4HR PRN 03/04/17 Rivaroxaban [Xarelto] 15 mg PO BEDTIME 05/02/19 Budesonide (Inhalation) [Pulmicort] 1 mg IN BID 05/11/19 Cholecalciferol [Vitamin D] 1,000 unit PO DAILY 05/11/19 Ferrous Sulfate [Iron] 65 mg PO DAILY 05/11/19 Acetaminophen W/ Codeine [Tylenol W/ CODEINE #3] 1 ea PO BEDTIME PRN 06/05/19 Albuterol Sulfate [Ventolin Hfa] 108 mcg IN PRN PRN 06/05/19 Citalopram Hydrobromide 40 mg PO QAM 06/05/19 Cyclobenzaprine HCl [Flexeril] 5 mg PO BEDTIME 06/05/19 Fenofibrate 145 mg PO DAILY 06/05/19 Metoprolol Tartrate 25 mg PO BID 06/05/19 Omeprazole [Prilosec Cap] 20 mg PO BID 06/05/19 Ondansetron Odt [Zofran Odt] 8 mg PO Q6HRS PRN 06/05/19 Pyridoxine HCl [Vitamin B-6] 100 mg PO DAILY 06/05/19 Sucralfate 1 gm PO QID 06/05/19 Theophylline [Fam-24] 150 mg PO DAILY@0700 06/05/19 Furosemide Tab [Lasix Tab] 40 mg PO QAM 09/20/19 Gabapentin [Neurontin] 100 mg PO BEDTIME PRN 09/20/19 Potassium Chloride [Potassium Chloride ER] 20 meq PO BID 09/20/19 Turmeric (Curcuma Longa) [Turmeric] 500 mg PO DAILY 09/20/19 Critical Care Note - Critical Care Note Total Time (mins): 45 Transfer to Outside Facility - Transfer Information Decision to Transfer Date: 01/03/20 Decision to Transfer Time: 03:15 Reason for Transfer: specialized care not available Accepting Facility: [place]
--- NOTE | 2020-01-03 01:59 | RAD ---
EXAM DESCRIPTION: Chest,1 View CLINICAL HISTORY: 79 years Female, sob COMPARISON: 11/07/2019 TECHNIQUE: Single AP chest radiograph. FINDINGS: Scattered bilateral hazy pulmonary opacities. No pneumothorax or pleural effusion. Normal cardiomediastinal contour. Normal osseous structures. IMPRESSION: Scattered bilateral hazy pulmonary opacities. Differential considerations include edema or multifocal infection, such as viral pneumonitis. Electronically signed by: Mraio Urias MD 01/03/2020 1:57 AM CDT
[2020-01-03] MEDS ORDERED: diltiaZEM DRIP 125 MG in SODIUM CHLORIDE 0.9% 100ML 100 ML IVPB SCH ×4 (02:00)
[2020-01-03] MEDS ORDERED: ACETAMINOPHEN 500 MG TAB PO ONE (02:33)
[2020-01-03] MEDS ORDERED: ALBUTEROL SULFATE 2.5 MG/3 ML VIAL NEB ONE (02:35)
[2020-01-03] MEDS ORDERED: IPRATROPIUM/ALBUTEROL 3 ML VIAL NEB ONE (02:35)
[2020-01-03 03:01] VITALS: BP 111/56
[2020-01-03 04:01] VITALS: TEMP 99.5; O2SAT 95
== END 2020-01-03 05:55 | disposition short-term general hospital (02) ==
LOC: ER 23:46
DX: U07.1 COVID-19 (principal); R06.03 Acute respiratory distress; I48.91 Unspecified atrial fibrillation; J44.9 Chronic obstructive pulmonary disease, unspecified; I10 Essential (primary) hypertension; F17.200 Nicotine dependence, unspecified, uncomplicated; Z79.01 Long term (current) use of anticoagulants; R00.2 Palpitations
CPT/HCPCS: 36415; 71045; 80048; 80076; 82550; 82553; 83605; 83880; 84484; 85025; 85610; 85730; 87040; 87635; 93005; A4216; J2405; J7050

== ENCOUNTER 2020-01-22 17:56 | Observation (INO) | payer MEDICARE ==
[2020-01-22] MEDS: SODIUM CHLORIDE 0.9% (FLUSH) 10 ML SYG IV PRN (19:40)
--- NOTE | 2020-01-22 20:17 | RAD ---
EXAM DESCRIPTION: XR Chest, 2 Views CLINICAL HISTORY: 79 years Female AMS, SOB X 1 WK TECHNIQUE: One view of the chest. COMPARISON: 01/03/2020 FINDINGS: Diffusely increased interstitial markings again noted. Hazy airspace infiltrates in the lung apices and lung bases, right greater than left. No pleural effusion or pneumothorax. Stable cardiomediastinal silhouette. No acute osseous abnormality. IMPRESSION: Increased interstitial markings and hazy airspace infiltrates. Viral infection should be excluded clinically. Electronically signed by: Velia Tenorio MD 01/22/2020 8:15 PM CDT
[2020-01-22] MEDS ORDERED: FUROSEMIDE INJ 20 MG/2 ML VIAL IV ONE (21:47)
--- NOTE | 2020-01-22 21:48 | ED.PDOC ---
History of Present Illness - General Chief Complaint: Neuro Symptoms/Deficits Stated Complaint: altered mental status, fever, wt gain Time Seen by Provider: 01/22/20 18:57 Source: patient Exam Limitations: no limitations - History of Present Illness Initial Comments: 2D SOB, MILD AMS. HH TODAY NOTED PT WASN'T HER USUAL ALERTNESS AND HAD 9 LBS WEIGHT GAIN PAST [address] D[address] HH T[address] WITH DR. DUMAS (PCP IN [place]) WHO RECOMMENDED TO ER. XARELTO FOR H/O AFIB. H/O CHF, COPD. Timing/Duration: constant Severity: moderate Improving Factors: nothing Worsening Factors: nothing Associated Symptoms: shortness of breath Allergies/Adverse Reactions: Allergies Rosuvastatin [From Crestor] Allergy (Severe, Verified 01/22/20 23:44) Rash Erythromycin Allergy (Verified 01/22/20 23:44) Nausea Penicillins Allergy (Verified 01/22/20 23:44) Pentazocine [From Talwin Compound] Allergy (Verified 01/22/20 23:44) Rash Rifampin Allergy (Verified 01/22/20 23:44) Rash Atorvastatin [From Lipitor] Adverse Reaction (Intermediate, Verified 01/22/20 23:44) Other Causes muscle pain Ketorolac Tromethamine [From Toradol] Adverse Reaction (Intermediate, Verified 01/22/20 23:44) Benzodiazepines Adverse Reaction (Verified 01/22/20 23:44) Other Some benzos make patient "ZONED out for days" Warfarin [From Coumadin] Adverse Reaction (Verified 01/22/20 23:44) causes stomach bleeding Home Medications: Ambulatory Orders Ipratropium/Albuterol [Duoneb] 3 ml NEB Q4HR PRN 03/04/17 Rivaroxaban [Xarelto] 15 mg PO BEDTIME 05/02/19 Budesonide (Inhalation) [Pulmicort] 1 mg IN BID 05/11/19 Cholecalciferol [Vitamin D] 1,000 unit PO DAILY 05/11/19 Ferrous Sulfate [Iron] 65 mg PO DAILY 05/11/19 Acetaminophen W/ Codeine [Tylenol W/ CODEINE #3] 1 ea PO BEDTIME PRN 06/05/19 Albuterol Sulfate [Ventolin Hfa] 108 mcg IN PRN PRN 06/05/19 Citalopram Hydrobromide 40 mg PO QAM 06/05/19 Cyclobenzaprine HCl [Flexeril] 5 mg PO BEDTIME 06/05/19 Fenofibrate 145 mg PO DAILY 06/05/19 Metoprolol Tartrate 25 mg PO BID 06/05/19 Omeprazole [Prilosec Cap] 20 mg PO BID 06/05/19 Ondansetron Odt [Zofran Odt] 8 mg PO Q6HRS PRN 06/05/19 Pyridoxine HCl [Vitamin B-6] 100 mg PO DAILY 06/05/19 Sucralfate 1 gm PO QID 06/05/19 Theophylline [Fam-24] 150 mg PO DAILY@0700 06/05/19 Furosemide Tab [Lasix Tab] 40 mg PO QAM 09/20/19 Gabapentin [Neurontin] 100 mg PO BEDTIME PRN 09/20/19 Potassium Chloride [Potassium Chloride ER] 20 meq PO BID 09/20/19 Turmeric (Curcuma Longa) [Turmeric] 500 mg PO DAILY 09/20/19 Review of Systems - Review of Systems Constitutional: Denies: chills, fever EENTM: States: no symptoms reported Respiratory: States: short of breath. Denies: cough Cardiology: Denies: chest pain, palpitations Gastrointestinal/Abdominal: States: no symptoms reported Genitourinary: States: no symptoms reported Musculoskeletal: States: no symptoms reported Skin: States: no symptoms reported Neurological: States: no symptoms reported Endocrine: States: no symptoms reported Hematologic/Lymphatic: States: no symptoms reported All other Systems: Reviewed and Negative Past Medical History (General) - Patient Medical History Hx Seizures: No Hx Stroke: No Hx Dementia: No Hx Asthma: No Hx of COPD: Yes Hx Cardiac Disorders: Yes - a fib Hx Congestive Heart Failure: No Hx Pacemaker: No Hx Hypertension: Yes Hx Thyroid Disease: No Hx Diabetes: No Hx Gastroesophageal Reflux: Yes - microcytic colitis, hitatal hernia, GI bleed Hx Renal Disease: No Hx Cancer: Yes - cervical Hx of HIV: No Hx Hepatitis C: No Hx MRSA: No - Vaccination History Hx Tetanus, Diphtheria Vaccination: No Hx Influenza Vaccination: Yes Hx Pneumococcal Vaccination: Yes - Social History Hx Tobacco Use: Yes Hx Chewing Tobacco Use: No Hx Alcohol Use: No Hx Substance Use: No Hx Substance Use Treatment: No Hx Depression: No Hx Physical Abuse: No Hx Emotional Abuse: No Hx Suspected Abuse: No - Female History Patient : No Family Medical History - Family History Father Family History: No Known Living Status: Hx Cardiac Disease: Yes Hx Family;Other: Respiratory dz Mother Family History: No Known Living Status: Hx Cardiac Disease: Yes Physical Exam - Physical Exam General Appearance: Alert, Well Groomed Eye Exam: bilateral normal Ears, Nose, Throat: hearing grossly normal, normal ENT inspection, normal pharynx Neck: non-tender, full range of motion Respiratory: no respiratory distress, no accessory muscle use, wheezing - BL EXPIR WHEEZE Cardiovascular/Chest: regular rate, rhythm, no murmur Peripheral Pulses: radial,right: 2+, radial,left: 2+ Gastrointestinal/Abdominal: normal bowel sounds, non tender, soft Back Exam: normal inspection, no CVA tenderness Extremity: non-tender, normal inspection Neurologic: no motor/sensory deficits, normal mood/affect Skin Exam: normal color, warm/dry Lymphatic: no adenopathy Progress - Results/Orders Results/Orders: MILD CHF - BNP 415, 9 LB WT GAIN 1 WEEK. MILD PNE PER CXR. RIGHT GREATER THAN LEFT. MILD UTI PER UA. ADDITIONAL W/U NONCONTRIBUTORY OR WNL: COVID NEG. L.A. NEG. BCX P. EKG KNOWN AFIB. DDIMER NEG. CMP AND COAGS NEG. ADMITTING FOR FURTHER CARE OF THE ABOVE. STARTED ROCEPHIN (PCN ALLERGIC BUT NOT TO CEPHALOSPORINS.). Departure - Departure Clinical Impression: CHF (congestive heart failure) Qualifiers: Heart failure type: unspecified Heart failure chronicity: unspecified Qualified Code(s): I50.9 - Heart failure, unspecified Dyspnea Qualifiers: Dyspnea type: shortness of breath Qualified Code(s): R06.02 - Shortness of breath; R06.00 - Dyspnea, unspecified; R06.01 - Orthopnea UTI (urinary tract infection) Qualifiers: Urinary tract infection type: acute cystitis Hematuria presence: without hematuria Qualified Code(s): N30.00 - Acute cystitis without hematuria Anemia Qualifiers: Anemia type: other cause Other causes of anemia: other cause, not classified Qualified Code(s): D64.89 - Other specified anemias Pneumonia Qualifiers: Pneumonia type: due to unspecified organism Laterality: right Lung location: unspecified part of lung Qualified Code(s): J18.9 - Pneumonia, unspecified organism Disposition: Admit Patient Condition: Good Home Medications: Ambulatory Orders Ipratropium/Albuterol [Duoneb] 3 ml NEB Q4HR PRN 03/04/17 Rivaroxaban [Xarelto] 15 mg PO BEDTIME 05/02/19 Budesonide (Inhalation) [Pulmicort] 1 mg IN BID 05/11/19 Cholecalciferol [Vitamin D] 1,000 unit PO DAILY 05/11/19 Ferrous Sulfate [Iron] 65 mg PO DAILY 05/11/19 Acetaminophen W/ Codeine [Tylenol W/ CODEINE #3] 1 ea PO BEDTIME PRN 06/05/19 Albuterol Sulfate [Ventolin Hfa] 108 mcg IN PRN PRN 06/05/19 Citalopram Hydrobromide 40 mg PO QAM 06/05/19 Cyclobenzaprine HCl [Flexeril] 5 mg PO BEDTIME 06/05/19 Fenofibrate 145 mg PO DAILY 06/05/19 Metoprolol Tartrate 25 mg PO BID 06/05/19 Omeprazole [Prilosec Cap] 20 mg PO BID 06/05/19 Ondansetron Odt [Zofran Odt] 8 mg PO Q6HRS PRN 06/05/19 Pyridoxine HCl [Vitamin B-6] 100 mg PO DAILY 06/05/19 Sucralfate 1 gm PO QID 06/05/19 Theophylline [Fam-24] 150 mg PO DAILY@0700 06/05/19 Furosemide Tab [Lasix Tab] 40 mg PO QAM 09/20/19 Gabapentin [Neurontin] 100 mg PO BEDTIME PRN 09/20/19 Potassium Chloride [Potassium Chloride ER] 20 meq PO BID 09/20/19 Turmeric (Curcuma Longa) [Turmeric] 500 mg PO DAILY 09/20/19 Decision To Admit - Decistion To Admit Decision to Admit Reason: Admit from ER Decision to Admit Date: 01/22/20 Decision to Admit Time: 22:00
[2020-01-22] MEDS ORDERED: cefTRIAXone SODIUM 1 GM in SODIUM CHL 0.9% 50ML MIN-BAG+ 50 ML IVPB ONE (22:12)
[2020-01-22] MEDS ORDERED: ALBUTEROL INHALER 64 PUFF/8GM INH ONE (22:36)
--- NOTE | 2020-01-22 22:50 | HP ---
SUPERVISING PHYSICIAN: Jennifer Jimenez MD CHIEF COMPLAINT: Acute weight gain, altered mental status, shortness of breath. HISTORY OF PRESENT ILLNESS: Ms. Ansari is a 79-year-old female patient who has a history of chronic obstructive pulmonary disease and atrial fibrillation. She presented to the Emergency Room last night after recommendations from Dr. Diaz, her primary care physician, that she could be evaluated for increasing shortness of breath along with reported weight gain of 9 pounds over the last 7 days. She was recently admitted for a COVID pneumonia and atrial fibrillation with rapid ventricular response at [facility] in [place] on 01/03/20 and discharged on 01/08/20. She has actually been seen in followup on 01/21/[address] Diaz and was recently started on digoxin. Ms. Ansari reports that [facility] noted she was having a weight gain that was reportedly over 9 pounds over the last 7 days. Due to her increasing shortness of breath, it was she be evaluated in the Emergency Room. Vital signs in the Emergency Room initially showed she was afebrile with temperature 97.2, pulse 92, blood pressure 118/61, oxygen saturation 93% on 2 liters nasal cannula as she is O2 dependent at home. COVID test here in the ER was negative. Chest x- ray showed stable nonspecific interstitial pulmonary opacities with trace of right pleural effusion. EKG in the ER showed atrial fibrillation with a ventricular rate of 92. There were no ST or T-wave inversions noted. Laboratory studies showed normal white count of 7,500 with a slight left shift, hemoglobin 10, hematocrit 28.8. Chemistries showed normal electrolytes with BNP 415. Creatinine 1.1. Due to the fact that the patient is significant deconditioned and in a weakened state and has had some confusion along with increasing shortness of breath and acute weight gain, it was felt she may be experiencing possible acute congestive heart failure exacerbation and is now going to be placed in observation overnight for close telemetry monitoring and further evaluation and treatment. Again, she tested negative for COVID-19 in the ER and is now going to be placed in observation in stable condition. PAST MEDICAL HISTORY: 1. Atrial fibrillation on chronic Xarelto, digoxin and metoprolol for right control. 2. Gastroesophageal reflux disease. 3. Chronic obstructive pulmonary disease with recent COVID infection. 4. Chronic congestive heart failure with current echocardiogram showing a 40-45% ejection fraction with mild systolic dysfunction. 5. History of cervical cancer. 6. Atherosclerosis with claudication and stent placed in femoral arteries. 7. Chronic kidney disease. PAST SURGICAL HISTORY: 1. Hemorrhoidectomy. 2. Bilateral femoral stents. 3. Appendectomy. 4. Cervical cone biopsy. HOME MEDICATIONS: 1. Zinc sulfate 220 mg b.i.d. 2. Tumeric 500 mg daily. 3. Theophylline 300 mg at bedtime. 4. Theophylline 150 mg in the morning. 5. Sucralfate 1 gram a.c. and h.s. 6. Xarelto 15 mg at bedtime. 7. Vitamin B6 100 mg daily. 8. Prednisone 10 mg p.r.n. 9. Potassium chloride 20 mEq b.i.d. 10. Zofran 8 mg ODT q.6h. as needed. 11. Prilosec 20 mg b.i.d. 12. Nasacort 1 spray daily. 13. Metoprolol tartrate 50 mg b.i.d. 14. Melatonin 3 mg at bedtime. 15. Lactaid 3000 units daily. 16. DuoNeb 3 mL nebulizers q.4h. as needed. 17. Gabapentin 100 mg at bedtime. 18. Lasix 40 mg b.i.d. 19. Iron 65 mg daily. 20. Fenofibrate 145 mg daily. 21. Digoxin 0.125 mg daily. 22. Flexeril 5 mg at bedtime. 23. Citalopram 40 mg q.a.m. 24. Vitamin D 1000 units daily. 25. Pulmicort 1 mg b.i.d. 26. Prevagen 10 mg daily. 27. Ventolin inhaler 108 mcg inhaled p.r.n. as needed. 28. Tylenol #3 1 to 2 at bedtime as needed. ALLERGIES: CRESTOR, ERYTHROMYCIN, PENICILLINS, TALWIN, RIFAMPIN, LIPITOR, TORADOL, BENZODIAZEPINES, WARFARIN. FAMILY HISTORY: Positive for coronary artery disease, hypertension, cancers. SOCIAL HISTORY: The patient lives in [place]. She is . 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 She lives with her son. She is a former smoker, but quit 6 years previously. She denies any alcohol or illicit drug use. REVIEW OF SYSTEMS: CONSTITUTIONAL: Negative for any fevers, chills. Positive for generalized malaise as noted in history of present illness and weakness. HEENT: Negative for headaches, sore throats, nasal congestion, vision changes. RESPIRATORY: As noted in history of present illness, chronic shortness of breath, oxygen dependent, Negative for coughing, wheezing. CARDIOVASCULAR: Negative for chest pain, palpitations or syncopal episodes. GASTROINTESTINAL: Negative for nausea, vomiting, diarrhea, constipation. GENITOURINARY: Negative for dysuria, hematuria, polyuria. MUSCULOSKELETAL: Negative fro arthralgias, joint swelling. SKIN: Negative for lesions, rashes, moles or unexplained changes. NEUROLOGIC: Positive for some confusion, but denies any focal motor deficits. No seizures, no ataxia. HEMATOLOGIC: Negative for easy bruising, unexplained bleeding or transfusion reactions. PHYSICAL EXAMINATION: VITAL SIGNS: Temperature 98.7, pulse 99, blood pressure 161/72, respirations 22, saturation 98% on nasal cannula at 2 liters at rest. GENERAL: The patient is resting comfortably. She does not appear to be in any acute distress. She is alert. HEENT: Tympanic membranes clear bilaterally. Oropharynx is pink, moist without any lesions. NECK: Supple, nontender with full range of motion. No jugular venous distention noted. RESPIRATORY: She has some bilateral expiratory wheezes. No rales or rhonchi noted. CARDIOVASCULAR: Slightly irregular rate and rhythm without any appreciable murmurs, gallops, or rubs. ABDOMEN: Soft, nontender. Positive bowel sounds. EXTREMITIES: There is no edema. NEUROLOGIC: Cranial nerves II-XII are grossly intact. Facial features are symmetrical. Extraocular movements are within normal limits. The patient is alert and oriented times three. SKIN: Warm, pink and dry. LABORATORY: White count 7,500, hemoglobin 10, hematocrit 29.8, platelet count 189,000. Differential shows a left shift. Coagulation studies showed PT 12.1, but she is on Xarelto. D-dimer normal at 226. Chemistries showed normal electrolytes. BUN 22, creatinine 1.11, lactic acid 1.4. Liver functions all within normal limits. BNP elevated at 415. Urinalysis showed trace intact blood, 2.0 urobilinogen, leukocyte esterase trace, RBCs 1 to 3, WBCs 3 to 5, 1 to 3 epithelials, no bacteria. Digoxin level pending. RADIOLOGY: Single-view chest per radiologic interpretation shows increased interstitial markings and hazy airspace infiltrates. Viral infection should be excluded clinically. Please see that report for details. 12-lead EKG showed atrial fibrillation with controlled ventricular rate of 92 beats per minute. No ST or T-wave changes noted to indicate acute ischemia or acute coronary syndrome. ASSESSMENT: 1. Acute on chronic congestive heart failure exacerbation with elevated BNP on admission with acute weight gain reported of over 9 pounds in the last 7 days. 2. History of COVID pneumonia within the last 2 weeks, possibly contributing to #1. 3. Atrial fibrillation, chronic, on Xarelto, digoxin and a beta precious. 4. Questionable urinary tract infection. 5. History of renal insufficiency, at baseline levels. 6. Chronic obstructive pulmonary disease with no obvious sign of exacerbation at this point. 7. Severe deconditioning and weakness secondary to a recent hospitalization and COVID pneumonia. 8. History of gastroesophageal reflux disease. PLAN: The patient is going to be placed in observation for treatment of underlying exacerbation of congestive heart failure. I did talk with the patient at length about the fact that she is significantly deconditioned and even though she wears chronic O2 at home and she has home health, certainly she is deconditioned and would benefit from possible further evaluation and admission to either a rehab or SNF situation to help return the patient back to home safely. We will diurese her gently overnight. We will restart her medications as those are updated and verified. She remains on DVT prophylaxis with Xarelto. I anticipate her length of stay to be at least 1 to 2 days. Until the patient can transition to outpatient management, we will continue to monitor and treat as needed. #[id number] [facility]
[2020-01-22] MEDS ORDERED: SODIUM CHLORIDE 0.9% (FLUSH) 10 ML SYG IV PRN (23:04)
[2020-01-22] MEDS ORDERED: NITROGLYCERIN 0.4 MG 25 EA TAB SL PRN (23:04)
[2020-01-22] MEDS ORDERED: ONDANSETRON INJ 4 MG/2 ML VIAL IV PRN (23:04)
[2020-01-22] MEDS ORDERED: IV SET AND CAP CHANGE INJ INJ SCH (23:30)
[2020-01-22] MEDS: ALBUTEROL INHALER 64 PUFF/8GM INH SCH (23:56)
[2020-01-23] MEDS ORDERED: LEVALBUTEROL NEBS 0.63 MG/3 ML VIAL NEB ONE (03:25)
[2020-01-23] MEDS ORDERED: LEVALBUTEROL NEBS 0.31 MG/3 ML VIAL NEB ONE (03:26)
[2020-01-23] MEDS: LEVALBUTEROL NEBS 1.25 MG/3 ML VIAL NEB PRN ×3 (03:36→20:40)
[2020-01-23] MEDS: ALBUTEROL INHALER 64 PUFF/8GM INH SCH ×2 (06:56→08:01)
[2020-01-23] MEDS: LEVALBUTEROL NEBS 1.25 MG/3 ML VIAL NEB SCH ×2 (06:58→16:45)
--- NOTE | 2020-01-23 07:18 | RAD ---
EXAM DESCRIPTION: Chest,2 Views CLINICAL HISTORY: 79 years Female, CHF COMPARISON: 01/22/2020 TECHNIQUE: Single AP chest radiograph. FINDINGS: Stable cardiomediastinal contour. No pulmonary vascular congestion. Bilateral interstitial opacities persist. Discrete focal opacity at the right lung base, unchanged. No pneumothorax. Trace right pleural effusion. IMPRESSION: 1. Stable nonspecific interstitial pulmonary opacities. 2. Trace right pleural effusion. Electronically signed by: Mario Urias MD 01/23/2020 7:16 AM CDT
[2020-01-23] MEDS ORDERED: FUROSEMIDE INJ 40 MG/4 ML VIAL IV SCH (09:00)
[2020-01-23] MEDS: SODIUM CHLORIDE 0.9% (FLUSH) 10 ML SYG IV PRN ×2 (09:07→13:18)
[2020-01-23] MEDS: ACETAMINOPHEN 325 MG TAB PO PRN (09:23)
[2020-01-23] MEDS ORDERED: METOPROLOL TARTRATE 50 MG TAB PO ONE (10:41)
[2020-01-23] MEDS: BUDESONIDE NEBS 0.5 MG/2 ML INH NEB SCH ×2 (11:30→20:40)
[2020-01-23] MEDS ORDERED: CYCLOBENZAPRINE HCL 5 MG TAB PO PRN (12:37)
[2020-01-23] MEDS: DEXAMETHASONE INJ 10 MG/ML VIAL IV SCH (13:17)
[2020-01-23] MEDS: DIGOXIN 0.125 MG TAB PO SCH (14:16)
[2020-01-23] MEDS ORDERED: KCL 20 MEQ/NS 1,000 ML IVS PRN (16:03)
[2020-01-23] MEDS: SUCRALFATE 1 GM TAB PO SCH ×2 (17:10→20:22)
[2020-01-23] MEDS: FUROSEMIDE 40 MG TAB PO SCH (20:22)
[2020-01-23] MEDS: POTASSIUM CHLORIDE 20 MEQ TAB PO SCH (20:22)
[2020-01-23] MEDS: METOPROLOL TARTRATE 50 MG TAB PO SCH (20:22)
[2020-01-23] MEDS: ZINC 50 MG CAPSULE PO SCH (20:22)
[2020-01-23] MEDS: OMEPRAZOLE CAP 20 MG CAP PO SCH (20:22)
[2020-01-23] MEDS ORDERED: cefTRIAXone SODIUM 1 GM in SODIUM CHL 0.9% 50ML MIN-BAG+ 50 ML IVPB SCH (20:30)
[2020-01-23] MEDS ORDERED: RIVAROXABAN 15 MG TAB PO SCH (21:00)
[2020-01-23] MEDS ORDERED: FENOFIBRIC ACID 135 MG CAP PO SCH (21:00)
[2020-01-23] MEDS ORDERED: GABAPENTIN 100 MG CAP PO SCH (21:00)
[2020-01-23] MEDS ORDERED: MELATONIN 3 MG TAB PO SCH (21:00)
[2020-01-24] MEDS: LEVALBUTEROL NEBS 1.25 MG/3 ML VIAL NEB SCH ×3 (00:22→15:30)
[2020-01-24] MEDS: SUCRALFATE 1 GM TAB PO SCH ×3 (06:04→16:50)
[2020-01-24] MEDS ORDERED: FERROUS SULFATE 325 MG TAB ONE (08:04)
[2020-01-24] MEDS ORDERED: CHOLECALCIFEROL 2,000 IU TAB PO ONE (08:04)
[2020-01-24] MEDS ORDERED: CITALOPRAM HBR 20 MG TAB ONE (08:05)
[2020-01-24] MEDS: BUDESONIDE NEBS 0.5 MG/2 ML INH NEB SCH (08:18)
[2020-01-24] MEDS: ZINC 50 MG CAPSULE PO SCH (08:37)
[2020-01-24] MEDS: DEXAMETHASONE INJ 10 MG/ML VIAL IV SCH (08:37)
[2020-01-24] MEDS: METOPROLOL TARTRATE 50 MG TAB PO SCH (08:38)
[2020-01-24] MEDS: POTASSIUM CHLORIDE 20 MEQ TAB PO SCH (08:38)
[2020-01-24] MEDS: FUROSEMIDE 40 MG TAB PO SCH (08:38)
[2020-01-24] MEDS: OMEPRAZOLE CAP 20 MG CAP PO SCH (08:38)
--- NOTE | 2020-01-24 08:46 | PN ---
SUPERVISING PHYSICIAN: Jennifer Jimenez MD DATE: 01/23/20 SUBJECTIVE: The patient is still showing significant weakness. She has had not had any further complaints. I did discuss with her at length that she needs to go to either long-term, swing bed program or rehab. At this point, she is refusing to go to all of those. Therefore, we will have a discussion with her son who hopefully can convince her that it is in the best interest of her safety and recovery that she go to a program as mentioned above. She has been tested negative for COVID several times and she has actually shown a little bit of improvement, she just remains weak. She denied any fever. Vital signs have been stable. OBJECTIVE: VITAL SIGNS: Temperature 98.3, pulse 78, blood pressure 119/62, respirations 22, oxygen saturation 97% on 2 liters nasal cannula. GENERAL: The patient appears exhausted. She has a very flat affect. She is alert and does not appear to be in any acute distress. CHEST: Lung sounds are essentially clear, just diminished towards the bases. I do not hear any obvious rhonchi or wheezing. HEART: Slightly irregular rate and rhythm with controlled rate. ABDOMEN: Soft, nontender. Positive bowel sounds. EXTREMITIES: No edema. NEUROLOGIC: Alert and oriented times three. She seems to be back at her baseline mental status. LABORATORY: BNP was elevated. The rest of her laboratory studies were significant stable and at baseline levels. I did do a digoxin level on her which was elevated at 2.1, but not toxic. MICROBIOLOGY: Blood cultures pending. RADIOLOGY: Repeat chest x-ray this morning per radiologic interpretation showed stable nonspecific interstitial pulmonary opacities, trace right pleural effusion. Echocardiogram shows preserved left ventricular function with estimated ejection fraction of 45-50%. ASSESSMENT: 1. Acute on chronic congestive heart failure with some mild exacerbation with an elevated BNP on admission with a mildly reduced ejection fraction likely etiology systolic and ejection fraction of 45-50% with the patient having reported 9-pound weight gain in the last 7 days prior to admission, showing good response to treatment. 2. History of COVID pneumonia within the last 2 weeks, possibly contributing to #1. 3. Atrial fibrillation, chronic, on Xarelto, digoxin and a beta precious. 4. History of renal insufficiency, at baseline levels. 5. Chronic obstructive pulmonary disease with no obvious sign of exacerbation at this point. 6. Severe deconditioning and weakness secondary to a recent hospitalization and COVID pneumonia. 7. History of gastroesophageal reflux disease. PLAN: At this point, we will continue her low dose Lasix. She is saline locked. She actually is really not showing any signs of distress. The biggest problem at this point is just getting her discharged to a facility where she can continue with rehab as I do not think she would do well at home. I have offered to try to do [facility] and she does not want to do that as well as suggested possibly swing bed in [place] where she actually works versus going to actual long-term in [place] and she has refused all those options at this point. I think the best course of action is to discuss the case with the patient's son and see if he can convince her that one of those options is better than just going home. Clinically, she is stable. She should be able to discharge as soon as we get her placed at one of those places or figure out what would be the safest way to get her home. She does remain on Xarelto for DVT prophylaxis and I am going to start her back on some Decadron just given that she has COPD and a recent COVID infection to see if this will help some of her deconditioning. Again, hopefully, we will be able to discharge tomorrow. Until then, we will continue to monitor and treat as needed. #[id number] [facility]
[2020-01-24] MEDS ORDERED: [UNRECOGNIZED DRUG - REMARK] INH SCH (09:00)
[2020-01-24] MEDS ORDERED: CHOLECALCIFEROL 2,000 IU TAB PO SCH (09:00)
[2020-01-24] MEDS ORDERED: FERROUS SULFATE 325 MG TAB PO SCH (09:00)
[2020-01-24] MEDS ORDERED: PYRIDOXINE HCL 100 MG PO SCH (09:00)
[2020-01-24] MEDS ORDERED: CITALOPRAM HBR 20 MG TAB PO SCH (09:00)
[2020-01-24] MEDS ORDERED: LACTASE 3000 UNIT PO SCH (09:00)
[2020-01-24] MEDS ORDERED: predniSONE 20 MG TAB PO SCH (09:00)
[2020-01-24] MEDS: DIGOXIN 0.125 MG TAB PO SCH (09:55)
[2020-01-24] MEDS: LEVALBUTEROL NEBS 1.25 MG/3 ML VIAL NEB PRN ×2 (11:55→18:30)
[2020-01-24] MEDS: ACETAMINOPHEN 325 MG TAB PO PRN (14:23)
[2020-01-24 17:58] VITALS: BP 98/56; TEMP 98.3
[2020-01-24 18:39] VITALS: O2SAT 98
[2020-01-24] MEDS ORDERED: THEOPHYLLINE 300 MG PO SCH (21:00)
[2020-01-25] MEDS ORDERED: THEOPHYLLINE 150 MG PO SCH (07:00)
--- NOTE | 2020-01-25 17:34 | DS ---
SUPERVISING PHYSICIAN: Dennis Jimenez M.D. ADMISSION DIAGNOSIS: 1. Acute on chronic congestive heart failure exacerbation with elevated BNP on admission with acute weight gain reported of over 9 pounds in the last 7 days. 2. History of COVID pneumonia within the last 2 weeks, possibly contributing to #1. 3. Atrial fibrillation, chronic, on Xarelto, digoxin and a beta precious. 4. Questionable urinary tract infection. 5. History of renal insufficiency, at baseline levels. 6. Chronic obstructive pulmonary disease with no obvious sign of exacerbation at this point. 7. Severe deconditioning and weakness secondary to a recent hospitalization and COVID pneumonia. 8. History of gastroesophageal reflux disease. DISCHARGE DIAGNOSIS: 1. Acute on chronic congestive heart failure with some mild exacerbation with an elevated BNP on admission with a mildly reduced ejection fraction likely etiology systolic and ejection fraction of 45-50% with the patient having reported 9-pound weight gain in the last 7 days prior to admission, showing good response to treatment. 2. History of COVID pneumonia within the last 2 weeks, possibly contributing to #1. 3. Atrial fibrillation, chronic, on Xarelto, digoxin and a beta precious. 4. History of renal insufficiency, at baseline levels. 5. Chronic obstructive pulmonary disease with no obvious sign of exacerbation at this point. 6. Severe deconditioning and weakness secondary to a recent hospitalization and COVID pneumonia. 7. History of gastroesophageal reflux disease. REASON FOR HOSPITALIZATION: Ms. Ansari is a 79-year-old female patient who has a history of chronic obstructive pulmonary disease and atrial fibrillation. She presented to the Emergency Room last night after recommendations from Dr. Diaz, her primary care physician, that she could be evaluated for increasing shortness of breath along with reported weight gain of 9 pounds over the last 7 days. She was recently admitted for a COVID pneumonia and atrial fibrillation with rapid ventricular response at [facility] in [place] on 01/03/20 and discharged on 01/08/20. She has actually been seen in followup on 01/21/[address] Diaz and was recently started on digoxin. Ms. Ansari reports that [facility] noted she was having a weight gain that was reportedly over 9 pounds over the last 7 days. Due to her increasing shortness of breath, it was she be evaluated in the Emergency Room. Vital signs in the Emergency Room initially showed she was afebrile with temperature 97.2, pulse 92, blood pressure 118/61, oxygen saturation 93% on 2 liters nasal cannula as she is O2 dependent at home. COVID test here in the ER was negative. Chest x- ray showed stable nonspecific interstitial pulmonary opacities with trace of right pleural effusion. EKG in the ER showed atrial fibrillation with a ventricular rate of 92. There were no ST or T-wave inversions noted. Laboratory studies showed normal white count of 7,500 with a slight left shift, hemoglobin 10, hematocrit 28.8. Chemistries showed normal electrolytes with BNP 415. Creatinine 1.1. Due to the fact that the patient is significant deconditioned and in a weakened state and has had some confusion along with increasing shortness of breath and acute weight gain, it was felt she may be experiencing possible acute congestive heart failure exacerbation and is now going to be placed in observation overnight for close telemetry monitoring and further evaluation and treatment. Again, she tested negative for COVID-19 in the ER and is now going to be placed in observation in stable condition. LABORATORY STUDIES: White count on admission was 7,500, hemoglobin 10, hematocrit 29.8, platelet count 189,000. Differential showed just a slight left shift. Coagulation studies showed a PT of 12.1, PTT of 27.2, D-dimer 226. Chemistry showed normal electrolytes, BUN 22, creatinine 1.11. Liver functions were within normal limits. Lactic acid normal at 1.4. BNP was only slightly elevated at 415. Troponin 0.03. Urinalysis showed trace of intact blood, 2.0 urobilinogen, trace of blood. Microscopic revealed 1 to 3 RBCs, 3 to 5 WBCs, 1 to 3 epithelials, no bacteria seen on Glass catheter. Digoxin level did show a slight elevation at 2.1, prior to discharge was normalized to 1.6. MICROBIOLOGY: Blood cultures are showing negative at 48 hours. Respiratory panel was negative for all viral and bacterial targets as tested, including COVID. RADIOLOGY: Chest x-ray on admission per radiology interpretation showed increased interstitial markings, hazy airspace infiltrates. Please see those reports for details. Final chest x-ray on the per radiology interpretation showed nonspecific interstitial pulmonary opacities with a trace left pleural effusion. EKG showed atrial fibrillation with no ST or T wave changes, likely probable Digitalis effect. Repeat EKG showed no acute changes. HOSPITAL COURSE: Ms. Ansari was admitted for some mild congestive heart failure exacerbation. She was diuresed off and showed good clinical response. Given that she had just recently cleared from COVID pneumonia and recent hospitalization multiple times, and was deconditioned, it was felt that the patient was not safe to discharge home. After a long discussion with her and family, she agreed to go to Swing Bed program in [place], [place]. It was felt that on the morning of discharge she was clinically stable enough to discharge to [place], [place] after a visit with accepting physician, Dr. Tong. The patient was accepted in the Swing Bed program in [place], [place] at [facility]. PLAN: Ms. Ansari was discharged to transfer to admission to Swing Bed program at [place], [place] at [facility] with Dr. Tong, accepting physician. She is to followup with Dr. Diaz in 1 to 2 weeks, or earlier if needed. She is to have a dietary consultation, physical therapy consultation and OT as per [facility] protocols. She was continued on medications, includin. Align 4 mg daily. 2. Cefdinir 300 mg twice daily. 3. Prednisone tapering dose 10 mg tablets to be continued at the discretion of Dr. Diaz or providers at [facility]. Condition on discharge was stable and improving, just significantly weakened due to recent hospitalizations. DISPOSITION: The patient was transferred to Swing Bed program in [place], [place] at [facility]. #[id number] [facility]
== END 2020-01-24 18:52 | disposition home or self-care (01) ==
LOC: ER 17:56 → MS 22:50
PROVIDERS: ADMIT Nurse Practitioner Family; ATTEND Nurse Practitioner Family
DX: I13.0 Hypertensive heart and chronic kidney disease with heart failure and stage 1 through stage 4 chronic kidney disease, or unspecified chronic kidney disease (principal); I50.23 Acute on chronic systolic (congestive) heart failure; N18.9 Chronic kidney disease, unspecified; I48.20 Chronic atrial fibrillation, unspecified; J44.9 Chronic obstructive pulmonary disease, unspecified; N30.00 Acute cystitis without hematuria; D64.9 Anemia, unspecified; R41.82 Altered mental status, unspecified; R53.1 Weakness; K21.9 Gastro-esophageal reflux disease without esophagitis; Z11.59 Encounter for screening for other viral diseases; Z66 Do not resuscitate; Z86.19 Personal history of other infectious and parasitic diseases; Z87.01 Personal history of pneumonia (recurrent); Z99.81 Dependence on supplemental oxygen; Z79.01 Long term (current) use of anticoagulants; Z79.51 Long term (current) use of inhaled steroids; Z79.899 Other long term (current) drug therapy; Z95.828 Presence of other vascular implants and grafts; Z85.41 Personal history of malignant neoplasm of cervix uteri; Z87.891 Personal history of nicotine dependence; Z90.49 Acquired absence of other specified parts of digestive tract; Z88.0 Allergy status to penicillin; Z88.3 Allergy status to other anti-infective agents; Z88.6 Allergy status to analgesic agent; Z88.8 Allergy status to other drugs, medicaments and biological substances; Z82.49 Family history of ischemic heart disease and other diseases of the circulatory system; Z80.9 Family history of malignant neoplasm, unspecified
CPT/HCPCS: 96365; 96375 ×2; 96376; J0696 ×2; J1940 ×2; J7512; J7626 ×3; J1100 ×2; A4216 ×2; J7050 ×2; J7614 ×10; 85379; 82553; 80053; 36415 ×4; 81001; 85025; 82550; 87040; 80162 ×2; 85730; 85610; 84484; 83880; 83605; 71046 ×2; 94640 ×9; 94760 ×2; 94664; 94762; 97530; 97116; 97162; 99285; 93306; 93005 ×2; G0378; 87635

== ENCOUNTER → 2020-02-13 | Outpatient (CLI) | payer MEDICARE | END | disposition home or self-care (01) | LOC: BFHH 13:56 | PROVIDERS: ATTEND Family Medicine | DX: I48.91 Unspecified atrial fibrillation (principal); I50.9 Heart failure, unspecified; I73.9 Peripheral vascular disease, unspecified; Z95.828 Presence of other vascular implants and grafts; Z51.81 Encounter for therapeutic drug level monitoring ==